=== PATIENT | male | born 1955 | race Caucasian/White ===

== ENCOUNTER 2025-07-24 01:46 | Day surgery (SDC) | payer OTHER, SELFPAY ==
[2025-07-17 15:12] VITALS: BMI 24.4
--- NOTE | 2025-07-17 15:38 | PC.NURSE ---
[facility] has started construction of its new state of the art ER which will open Spring 2026. With this, we anticipate parking may be a challenge for some our surgical patients and families. Parking spaces are limited but are available for all Surgical, obstetrics, and ER patients sharing this lot. If you arrive and find you are having a hard time finding a parking space, please note that we understand the challenges, please drive around the hospital and park near Hospital Entrance 1. When you enter this entrance, you can ask a volunteer to direct or take you back to the surgical waiting area to check in. We appreciate everyone?s understanding of these expected challenges while we build for your future. Report to the Outpatient Waiting Room, entrance under the green pavilion located off [address], at time __10:30AM___ on date __07/24/25___. Planned Procedure Time: __12:30PM____.? Time changes happen often and if your time is changed the preop area will call you the afternoon before. - You and your visitor will be asked to self-screen and do not enter if you have any COVID symptoms. Please call surgeon if you need to reschedule. - A mask is optional within the hospital at this time. Patients may have clear liquids (water, carbonated beverages, clear teas, apple juice) until 3 hours prior to surgery (9:30AM) with a maximum of 20 ounces. - No food from midnight until time of surgery and no smoking, or chewing tobacco (or any form of nicotine). No chewing gum, candy or mints. Take only the following medications with a SIP of water on the morning of surgery: LORAZEPAM NEEDED DO NOT STOP ANY OF YOUR OTHER PRESCRIPTION MEDICATIONS PRIOR TO SURGERY EXCEPT THE FOLLOWING Medications to discontinue per physician ___HOLD VITAMINS/SUPPLEMENTS 7 DAYS PRE-OP PER DR LOPEZ Date to take last dose 07/16/25 Please no make-up, nail nepali, hairspray, perfume, deodorant, or body powder the day of surgery.? No jewelry (including any body piercings) or valuables the day of surgery, leave them at home.? Please take a shower or bath the night before, or the morning of, surgery with an antibacterial soap.? Wear comfortable, loose fitting clothing.? - Jewelry must be removed prior to entering the operating room.? Rings and piercings that are not removed may be cut off. - The hospital will not accept responsibility for valuables.? - Please leave all valuables, including medications, at home the day of surgery. If you are going home after surgery, a licensed boom truck driver must drive you home.? - NO public transportation without another adult if you receive anesthesia. - We recommend that an adult stay with you for 24 hours following discharge. - We also recommend that you do not drive, make important decision, drink alcoholic beverages, or take any drugs that were not prescribed by your health care provider for at least 24 hours after your discharge time. Follow any additional instructions given to you from your surgeon. Telephone instructions given to ____PATIENT and asked if any additional questions and then verbalized understanding. Patient advised to call surgeon office or pre surgery nurse liaison [phone] if any additional questions.
--- NOTE | 2025-07-21 07:16 | PM.HPGS ---
History of Present Illness History of Present Illness Consent: Risks, benefits, and alternatives have been discussed and questions answered. Patient agrees to proceed with procedure. Chief complaint: elevated PSA Narrative: Rigoberto Charles is a 69 year old male 07/24/25: ?Care transferred to Dr. England after Dr. Baugh custodial ?a. Elevated PSA ?- PSA: 4.1 ?- 4K score: 45 ?The probability of having aggressive prostate cancer in all ? Americans and Non- Americans by 4Kscore ?4KScore Range ?% Probability ?95% CI ?<5.0 ?4.1% ?2.1%, ?7.9% ?5.0 to <10.0 ?9.6% ?5.8%, 15.5% ?10.0 to <20.0 ?19.7% ?14.8%, 25.8% ?> or = ?20.0 ?49.4% ?44.5%, 54.3% ?> or = ?20.0 ?49.4% ?44.5%, 54.3% ?- mpMRI Prostate: - volume 22gm / PSAD: 0.18 ?- PI-RADS 4 right TZ at mid-gland ?- PI-RADS 4 right PZ at apex ?b. BPH: not addressed by Dr. Baugh Review of Systems Review of Systems: All systems reviewed & are unremarkable except as noted in HPI and below PMFSH Social History Social History Smoking packs per day: 1.5 Smoking cigarettes per day: 30.0 Years smoked: 30 Smoking pack-years: 45.00 Smoking status: Former smoker Tobacco type: cigarettes Smoking end date: 04/29/90 Alcohol intake: current Drinks per week: 8 Substance use type: marijuana Other substance usage details: GUMMIE AND VAPE Living arrangements: alone Spiritual care concerns: No Meds Home Medications and Allergies Home Medications ?Medication ?Instructions ?Recorded ?Confirmed ?Type Turkish ginseng root extract 100 mg 100 mg PO DAILY 07/17/25 07/17/25 History capsule ascorbic acid (vitamin C) 1,000 mg 1 g PO DAILY 07/17/25 07/17/25 History capsule atorvastatin 40 mg tablet 40 mg PO DAILY 07/17/25 07/17/25 History cholecalciferol (vitamin D3) 50 2,000 unit PO DAILY 07/17/25 07/17/25 History mcg (2,000 unit) capsule ferrous sulfate 325 mg (65 mg 325 mg PO DAILY 07/17/25 07/17/25 History iron) tablet lorazepam 0.5 mg tablet 0.5 mg PO Q12H PRN anxiety 07/17/25 07/17/25 History multivitamin (Daily Multi-Vitamin 1 tablet PO DAILY 07/17/25 07/17/25 History tablet) omega 4-jhr-vso-fish oil 1,000 mg 1 cap PO DAILY 07/17/25 07/17/25 History (120 mg-180 mg) capsule (Fish Oil) trazodone 50 mg tablet 100 mg PO HS PRN sleep 07/17/25 07/17/25 History vitamin B complex 1 tablet PO DAILY 07/17/25 07/17/25 History Allergies Allergy/AdvReac Type Severity Reaction Status Date / Time ciprofloxacin Allergy HIVES Verified 07/17/25 15:20 Exam Const: General: no acute distress Resp: Effort & Inspection: normal respiratory effort GI: Inspection: non-distended GI Palp: No abdominal tenderness and No Guarding due to palpation present (GI) Auscultation: normal bowel sounds Assessment and Plan Assessment and plan (1) Abnormal PSA: Code(s): R97.20 - Elevated prostate specific antigen [PSA] Status: Acute Assessment and Plan: UroNav fusion biopsy prostate
--- OUTSIDE RECORDS SUMMARY | 2025-07-24 01:49 | XMS_ITS | Clinical Summary ---
Author Organization [facility] Address [address] [place] [address] Care Team Providers Care Event Crew Technician Name Role Phone Fernandez Lepe MD Primary Care Provider [phone] Allergies Active Allergy Reactions Criticality Noted Date Comments Ciprofloxacin Rash Low 01/04/2022 Medications atorvastatin 40 MG tablet Take 1 tablet (40 mg total) by mouth nightly at bedtime. Active TRAZODONE HCL OR Take 50 mg by mouth as needed. Active vitamin D3, cholecalciferol , 75 MCG (3000 UT) Tab tablet Take 3,000 Units by mouth daily. Patient takes 25mg daily Active vitamin C 1000 MG tablet Take 1 tablet (1,000 mg total) by mouth daily. Active multi vitamin/mineral s tablet Take 1 tablet by mouth daily. Active zinc gluconate 50 MG Tab Take 1 tablet (50 mg total) by mouth daily. Active calcium carb-cholecalci ferol 600-400 MG-UNIT Tab tablet 1 tablet daily. Active B Complex-C Tab tablet Take 1 tablet by mouth daily. Active Valerian Root 450 MG Cap Take by mouth as needed. Active ALPRAZolam (XANAX) 0.5 MG tablet 11/23/2023 Active IRON, FERROUS SULFATE, OR 06/23/2022 Active MALTESE PANAX GINSENG OR 11/01/2021 Active nabumetone (RELAFEN) 500 MG tablet Take 1 tablet (500 mg total) by mouth 2 (two) times daily with meals. 05/03/2024 Active fish oil (OMEGA-3 FATTY ACID) 1000 MG Cap capsule 11/23/2020 Active LORazepam (ATIVAN) 0.5 MG tablet Take 1 tablet (0.5 mg total) by mouth daily as needed for Anxiety. 11/19/2024 Active Active Problems No known active problems Social History Tobacco Use Types Packs/Day Years Used Date Smoking Tobacco: Former Smokeless Tobacco: Never Tobacco Cessation:Counseling Given: No Alcohol Use Standard Drinks/Week Comments Yes 0 (1 standard drink = 0.6 oz pur e alcohol) socially PHQ-2 Answer Date Recorded Patient Health Questionnaire-2 Score 1 02/26/2025 Sex and Gender Information Value Date Recorded Sex Assigned at Not on file Legal Sex Male 7:55 PM CDT Gender Identity Not on file Sexual Orientation Not on file Last Filed Vital Signs Vital Sign Reading Time Taken Comments Blood Pressure 158/88 02/26/2025 10:54 AM CDT Pulse 70 02/26/2025 10:54 AM CDT Temperature 36.7 C (98 F) 02/26/2025 10:16 AM CDT Respiratory Rate 17 01/05/2022 8:15 AM SENIOR TERADATA DEVELOPER Oxygen Saturation 100% 01/05/2022 8:15 AM SENIOR TERADATA DEVELOPER Inhaled Oxygen Concentration - - Weight 77.5 kg (170 lb 12.8 oz) 025 10:16 AM CDT Height 175.3 cm (5' 9) 02/26/2025 10:1 6 AM CDT Body Mass Index 25.22 02/26/2025 10:16 AM CDT Plan of Treatment Health Maintenance Due Date Last Done Comments Hepatitis C 1972 DTaP, Tdap and Td Vaccines ( 1 - Tdap) 1973 Zoster Vaccines (1 of 2) 2004 AAA SCREENING 2019 Annual Medicare Wellness Visit 2019 COVID-19 Vaccine (4 - 2024-2 6 season) 2025 09/30/2021, 03/31/2021, 03/03/2021 RSV Immunization or 60+ Years (1 - 1-dose 75+ series) 2029 Colorectal Cancer Screening Colonoscopy (10 Years) 01/06/2032 01/05/2022 Pneumococcal Vaccine: 50+ Years Completed 12/29/2020, 12/25/2019 PHQ-2 (Physician [place]) Completed 02/26/2025 Meningococcal B Vaccine Aged Out No l onger eligible based on patient's age to complete this topic Meningococcal Vaccine Aged Out No ariel eliane eligible based on patient's age to complete this topic RSV Immunizations Under 20 Months Aged Out No longer eligible b ased on patient's age to complete this topic Insurance ESSENCE Advance Directives Documents on File Type Date Recorded Patient Life Scientist Expl anation Advance Directives and Livin g Will 10/21/2013 POWER OF DECAL CUTTER Care Teams Event Crew Technician Relationship Specialty Start Date End Date Fernandez Lepe MD [address] [address] PCP - General 07/01/14
--- NOTE | 2025-07-24 06:19 | WPDHPUPDATE1 ---
History and Physical Update Update Date/Time: 07/24/25 06:19 History and Physical has been reviewed, including an updated exam of the patient. There are NO changes in the patient's condition. Risks, benefits, and alternatives have been discussed and questions answered. Patient agrees to proceed with procedure.
[2025-07-24 10:20] VITALS: BP 153/81; PULSE 61; RESP 14; TEMP 36.8; O2SAT 100; BMI 24.8
[2025-07-24] MEDS: LACTATED RINGERS 1,000 ML 30 ML IV CONT (10:45)
--- NOTE | 2025-07-24 10:51 | WPDANESEPPF ---
Anes - Initial Pre Proc Eval Procedure: Operation Date: 07/24/25 12:30 Proposed Procedures p Trans Rectal Ultrasound Fusion Guided Prostate Biopsy - Mikel England MD Date/Time: 07/24/25 10:51 Surgeon: Mikel England MD Pre Op Diagnosis: elevated PSA Patient Data Age: 69 Gender: M Height: 1.75 m Weight: 75 kg Allergies Allergy/AdvReac Type Severity Reaction Status Date / Time ciprofloxacin Allergy HIVES Verified 07/24/25 10:51 Home Medications ?Medication ?Instructions ?Recorded ?Confirmed ?Type Mongolian ginseng root extract 100 mg 100 mg PO DAILY 07/17/25 07/24/25 History capsule ascorbic acid (vitamin C) 1,000 mg 1 g PO DAILY 07/17/25 07/24/25 History capsule atorvastatin 40 mg tablet 40 mg PO DAILY 07/17/25 07/24/25 History cholecalciferol (vitamin D3) 50 2,000 unit PO DAILY 07/17/25 07/24/25 History mcg (2,000 unit) capsule ferrous sulfate 325 mg (65 mg 325 mg PO DAILY 07/17/25 07/24/25 History iron) tablet lorazepam 0.5 mg tablet 0.5 mg PO Q12H PRN anxiety 07/17/25 07/17/25 History multivitamin (Daily Multi-Vitamin 1 tablet PO DAILY 07/17/25 07/24/25 History tablet) omega 1-tlz-eqq-fish oil 1,000 mg 1 cap PO DAILY 07/17/25 07/24/25 History (120 mg-180 mg) capsule (Fish Oil) trazodone 50 mg tablet 100 mg PO HS PRN sleep 07/17/25 07/24/25 History vitamin B complex 1 tablet PO DAILY 07/17/25 07/24/25 History Patient hx anesthesia problems: none Family hx anesthesia problems: none Results Review: All pre-operative results and documents have been reviewed as part of the pre-operative evaluation. [facility] Social History Social History Smoking packs per day: 1.5 Smoking cigarettes per day: 30.0 Years smoked: 30 Smoking pack-years: 45.00 Smoking status: Former smoker Tobacco type: cigarettes Smoking end date: 04/29/90 Alcohol intake: current Drinks per week: 8 Substance use type: marijuana Other substance usage details: GUMMIE AND VAPE Living arrangements: alone Spiritual care concerns: No Anes - Eval Final PreProcedure Day of Procedure 07/24/25 10:51 Patient weight: normal Heart: regular rate and rhythm Lungs: decreased breath sounds Airway: Mallampati scale class III Neurological: alert and oriented Last oral intake: >/= 8 hours ASA classification: III Emergent: no Anesthetic plan: proceed Anesthesia type and monitoring: general LMA and standard monitoring Results Review: All pre-operative results and documents have been reviewed as part of the pre-operative evaluation. Informed Consent: The patient's anesthetic plan and its attendant risks and benefits were discussed with the patient/family/POA. Questions were solicited and answers provided to the satisfaction of the patient/family/POA.
--- NOTE | 2025-07-24 11:52 | S_PTH ---
PATIENT: Rigoberto Charles LOC: [facility] U#:[id number] AGE/SX: 69/M ROOM: RE07/24/[address]: Mikel England MD : [id number] BED: DIS: 07/24/2025 SPEC #: [id number] RECD: 07/24/25 13:36 STATUS: CHANTEL RE #: [id number] NISSA: 07/24/25 11:[address]: Mikel England DEPT: [facility] Surgical RECD BY: Thalia Whitehead ENTERED: 07/24/25 13:37 SP TYPE: Surgical OTHR DR: Fernandez LepeMD Tissues: A - Prostate Bx B - Prostate Bx C - Prostate Bx D - Prostate Bx E - Prostate Bx F - Prostate Bx G - Prostate Bx H - Prostate Bx I - Prostate Bx J - Prostate Bx K - Prostate Bx L - Prostate Bx M - Prostate Bx N - Prostate Bx Procedures: Unstained Slides Hematoxylin and Eosin Stain Prostate Biopsy PIN 4 Prostate Triple Stain
[2025-07-24 12:10] VITALS: BP 113/49; PULSE 60; RESP 18; O2SAT 100
[2025-07-24 12:40] VITALS: BP 116/67; PULSE 57
--- NOTE | 2025-07-24 13:03 | P.OP_ITS ---
Procedure Note - Detailed Date of Procedure 07/24/25 Pre-op Diagnosis elevated PSA Post-op Diagnosis Same Procedure Performed UroNav prostate biopsy Surgeon Mikel England MD Anesthesia General Description of Procedure Patient is brought to the operative suite where he is positioned in the left lateral position. Systemic sedation is administered per the anesthesia department. Surgical time-out is undertaken and it's verified the patient has received preoperative antibiotics. Transrectal ultrasonography is undertaken with a standard transrectal probe. The Neogrowth system is used to superimpose his previously obtained mpMRI prostate images on the real-time transrectal ultrasond images. Prostate volume is calculated at 20cc. On the previous mpMRI there are 2 regions of interest. Using the transrectal needle design for prostate biopsies 3 cores from each region of interest her obtain. We then proceeded with a standard 12 core prostate biopsy. Transrectal probe was removed and patient taken to recovery room having tolerated the procedure well. Blood loss was less than 10 cc.
[2025-07-24 13:08] VITALS: BP 140/67; PULSE 57; RESP 16
== END 2025-07-24 13:15 | disposition home or self-care (01) ==
PROVIDERS: PCP Family Medicine; Visit Provider Urology
PROC: (CPT 55700; principal; 2025-07-24 12:30)
DX: C61 Malignant neoplasm of prostate (principal); R97.20 Elevated prostate specific antigen [PSA]; F12.90 Cannabis use, unspecified, uncomplicated; Z87.891 Personal history of nicotine dependence
CPT/HCPCS: 76872; 55700; 88344; G0416; J2003; J2704; J3010; J7120

== ENCOUNTER 2025-09-01 11:56 | Outpatient (CLI) | payer OTHER, SELFPAY ==
--- NOTE | ~2025-09-01 | XR_ITS ---
XR chest 2V 09/01/2025 13:24 Indication: Malignant neoplasm of the prostate gland. Preop evaluation. Procedure: PA and lateral views of the chest Comparison: No prior studies for comparison. Findings: Heart size normal. Calcified granuloma in the left hilum and bilaterally in the lung parenchyma, consistent with chronic granulomatous disease. No focal air space disease, pulmonary edema, pleural effusion or suspected pneumothorax. No evidence for osseous metastases. Mild thoracic spondylosis. Impression: 1: No acute cardiopulmonary disease. Reviewed, dictated and finalized at location O. LLITE DISH REPAIRER Impression: 1: No acute cardiopulmonary disease.
--- NOTE | 2025-09-01 12:53 | ECG_ITS ---
Test Date: 2025-09-01 13:11:46 Measurements Intervals [place] Rate: 53 P: 95 RI: 241 QRS: -51 QRSD: 106 T: 47 QT: 393 QTc: 370 Interpretive Statements SINUS BRADYCARDIA WITH FIRST DEGREE AV BLOCK LEFT ANTERIOR FASCICULAR BLOCK [QRS AXIS <= -45, QR IN I, RS IN II] WARNING: DATA QUALITY MAY AFFECT INTERPRETATION No previous ECG available for comparison Electronically Signed On 09-01-2025 18:42:58 YOKE SETTER by Doron Castro M.D.
--- OUTSIDE RECORDS SUMMARY | 2025-09-01 13:25 | XMS_ITS | Clinical Summary ---
Author Organization [facility] Address [address] [place] [address] Care Team Providers Care Welt Insole Channeler Name Role Phone Fernandez Lepe MD Primary Care Provider [phone]- [phone] Allergies Active Allergy Reactions Criticality Noted Date [...] Active IRON, FERROUS SULFATE, OR 06/23/2022 Active SAMI PANAX GINSENG OR 11/01/2021 Active nabumetone (RELAFEN) [...] CDT Respiratory Rate 17 01/05/2022 8:15 AM BULB BRANDER Oxygen Saturation 100% 01/05/2022 8:15 AM BULB BRANDER Inhaled Oxygen Concentration - - Weight 77.5 [...] 2024-2 6 season) 2025 09/30/2021, 03/31/2021, 03/03/2021 Influenza Adult (#1) 2025 12/29/2020, 12/25/2019 RSV Immunization or 60+ Years (1 - 1-dose 75+ series) 2029 Colorectal Cancer Screening Colonoscopy (10 Years) 01/06/2032 01/05/2022 Pneumococcal Vaccine: 50+ Years Completed 12/29/2020, 12/25/2019 PHQ-2 (Physician [place]) Completed 02/26/2025 Hepatitis A Vaccines Aged Out No long er eligible based on patient's age to complete this topic Meningococcal B Vaccine Aged Out No l onger eligible based on patient's age to complete this topic Meningococcal Vaccine Aged Out No ariel eliane eligible based on patient's age to complete this topic RSV Immunizations Under 20 Months Aged Out No longer eligible b ased on patient's age to complete this topic Insurance ESSENCE Advance Directives Documents on File Type Date Recorded Patient Digital Program Manager Expl anation Advance Directives and Livin g Will 10/21/2013 POWER OF BEAD WIRE TAPER Care Teams Welt Insole Channeler Relationship Specialty Start Date End Date Fernandez Lepe MD [address] [facility] [address] [place] [address] PCP - General 07/01/14
[2025-09-01 13:48] LABS: Add Urine Microscopic? YES; Appearance Urine Clear (Clear); Glucose Urine UA Negative (Negative); Leukocyte Esterase Ur Trace LEU/UL (Negative); Nitrate Urine Negative (Negative); Non Pathogenic Casts 0-2; Specific Grav Ur 1.019 (1.001-1.035)
[2025-09-01 14:56] LABS: Hematocrit 43.1 % (42.0-52.0); Hemoglobin 15.0 g/dL (14.0-18.0); Mean Corpuscular HGB Conc 34.8 g/dl (32-36); Mean Corpuscular Hemoglobin 33.5 pg (26-34); Mean Corpuscular Volume 96.2 fl (80-100); Platelet Count Result 185 k/mm3 (150-375); Red Blood Count 4.48 M/mm3 (4.6-6.20); White Blood Count 12.5 K/mm3 (4.5-10.0)
[2025-09-01 15:07] LABS: Alanine Aminotransferase 35 U/L (6-50); Albumin Level 4.4 g/dL (3.5-5.1); Alkaline Phosphatase 74 U/L (38-126); Anion Gap 7 mmol/L (4-12); Aspartate Amino Transferase 43 U/L (17-59); Bilirubin,Total 0.7 mg/dL (0.2-1.3); Blood Urea Nitrogen 16 mg/dL (9-20); Calcium 9.0 mg/dL (8.4-10.2); Carbon Dioxide 28 mmol/L (22-30); Chloride 102 mmol/L (98-107); Estimated Glomerular Filt Rate > 60; Glucose 103 mg/dL (65-110); Potassium 3.6 mmol/L (3.4-5.0); Sodium 137 mmol/L (137-145); Total Protein 7.2 g/dL (6.3-8.2)
[2025-09-01 15:14] LABS: INR 1.0; Partial Thromboplastin Time 26.3 Seconds (22.3-36.8); Prothrombin Time 13.0 Seconds (11.1-14.7)
[2025-09-01 15:26] LABS: Lymphocytes Absolute Manual 9.50 K/mm3 (1.1-4.5); Lymphocytes Percent Manual 76.0 % (18-44); Monocytes Absolute Manual 0.62 K/mm3 (0.1-0.90); Monocytes Percent Manual 5 % (3-9); Neutrophils Percent Manual 19 % (46-73); Total Cells Counted 100
[2025-09-01 15:28] LABS: Schistocytes None Seen
[2025-09-01 15:30] LABS: Band Neutrophils Percent 0 % (0-6); Neutrophils Absolute Manual 2.37 K/mm3 (1.3-6.7)
== END 2025-09-01 11:57 | disposition home or self-care (01) ==
LOC: ANHSURGERY 11:59
PROVIDERS: PCP Family Medicine; Visit Provider Urology
DX: C61 Malignant neoplasm of prostate (principal); Z01.818 Encounter for other preprocedural examination
CPT/HCPCS: 36415; 71046; 80053; 81001; 85025; 85610; 85730; 86850; 86900; 86901; 93005

== ENCOUNTER 2025-09-11 02:01 | Day surgery (SDC) | payer OTHER, SELFPAY ==
--- NOTE | 2025-09-01 11:59 | PC.NURSE ---
[facility] has started construction of its new state of the art ER which will open Spring 2026. With this, we anticipate parking may be a challenge for some our surgical patients and families. Parking spaces are limited but are available for all Surgical, obstetrics, and ER patients sharing this lot. If you arrive and find you are having a hard time finding a parking space, please note that we understand the challenges, please drive around the hospital and park near Hospital Entrance 1. When you enter this entrance, you can ask a volunteer to direct or take you back to the surgical waiting area to check in. We appreciate everyone?s understanding of these expected challenges while we build for your future. Report to the Outpatient Waiting Room, entrance under the green pavilion located off [address], at time 6 AM on date _09/11/25 . Planned Procedure Time: __7:30 AM .? Time changes happen often and if your time is changed the preop area will call you the afternoon before. - You and your visitor will be asked to self-screen and do not enter if you have any COVID symptoms. Please call surgeon if you need to reschedule. - A mask is optional within the hospital at this time. Patients may have clear liquids (water, carbonated beverages, clear teas, apple juice) until 3 hours prior to surgery ( 4:30 AM) with a maximum of 20 ounces. - No food from midnight until time of surgery and no smoking, or chewing tobacco (or any form of nicotine). No chewing gum, candy or mints. - Take only the following medications with a SIP of water on the morning of surgery: ____LORAZEPAM IF NEEDED DO NOT STOP ANY OF YOUR OTHER PRESCRIPTION MEDICATIONS PRIOR TO SURGERY EXCEPT THE FOLLOWING Hold all vitamins and supplements for 3 days per anesthesiologist.LAST DOSE 09/07/25 Medications to discontinue per physician ____NONE BOWEL PREP PER DR LOPEZ Please no make-up, nail honduran, hairspray, perfume, deodorant, or body powder the day of surgery.? No jewelry (including any body piercings) or valuables the day of surgery, leave them at home.? Please take a shower or bath the night before, or the morning of, surgery with an antibacterial soap.? Wear comfortable, loose fitting clothing.? Children are encouraged to wear pajamas. - Jewelry must be removed prior to entering the operating room.? Rings and piercings that are not removed may be cut off. - The hospital will not accept responsibility for valuables.? - Please leave all valuables, including medications, at home the day of surgery. If you are going home after surgery, a licensed tractor driver teamster must drive you home.? - NO public transportation without another adult if you receive anesthesia. - We recommend that an adult stay with you for 24 hours following discharge. - We also recommend that you do not drive, make important decision, drink alcoholic beverages, or take any drugs that were not prescribed by your health care provider for at least 24 hours after your discharge time. For Pediatric surgeries, we recommend two adults accompany the child home. Follow any additional instructions given to you from your surgeon. VERBAL AND WRITTEN instructions given to __PATIENT_AND BROTHER and asked if any additional questions and then verbalized understanding. Patient advised to call surgeon office or pre surgery nurse liaison [phone] if any additional questions.
[2025-09-01 12:03] VITALS: BMI 25.1
[2025-09-01 12:54] VITALS: BP 153/73; PULSE 65; RESP 18; TEMP 36.6; O2SAT 99
--- NOTE | 2025-09-03 06:30 | PM.HPGS ---
History of Present Illness History of Present Illness Consent: Risks, benefits, and alternatives have been discussed and questions answered. Patient agrees to proceed with procedure. Chief complaint: Prostate Ca Narrative: Rigoberto Charles is a 69 year old male with prostate cancer: 07/28/25: ?TRUS/NBxP at [facility] ?PSA: 5.1 ?- ?07/12 cores (all right + LLM, LA + ROSELYN on right), GGG-1 (6) and GGG2 (3) ?- ?NCCN Unfavorable IR ?- ?Volume: 22gm ?Howard (prediction of pathology): ?a. ?Lymph node: 3% ?b. ?S.V.: 3% ?c. ?EPE: 42% ?d. ?Organ confined: 57% 08/06/25: ?Decipher Prostate ?Decipher Score: 0.71 (0-.45 Low Risk / .45-.60 Int. Risk / >.60 High Risk) in comparison to similar NCCN risk ?- 5-year Risk of Metastasis (with standard therapy): 3.6% ?- 10-year Risk of Metastasis (with standard therapy): 9.0% ?- 15-year Risk of Mortality (with standard therapy): 11.7% ?- Risk of Adverse Pathology at RP: 29% ?73rd percentile / 27% of patients with similar clinical and pathological features typically have higher Genomic Scores 08/06/2025: ?Pt. opts for RALP Long discussion with patient and his brother regarding therapeutic options including active surveillance radiation therapy in its various forms and radical prostatectomy. He has elected for the latter. Review of Systems Review of Systems: All systems reviewed & are unremarkable except as noted in HPI and below PMFSH Social History Social History Smoking packs per day: 1.5 Smoking cigarettes per day: 30.0 Years smoked: 30 Smoking pack-years: 45.00 Smoking status: Former smoker Tobacco type: cigarettes Smoking end date: 10/30/89 Alcohol intake: current Drinks per week: 10 Alcohol use details: WHITE CLAW Substance use: current Substance use type: marijuana Other substance usage details: GUMMIE AND VAPE Last use: 08/31/25 Living arrangements: alone Spiritual care concerns: No Meds Home Medications and Allergies Home Medications ?Medication ?Instructions ?Recorded ?Confirmed ?Type Maltese ginseng root extract 100 mg 100 mg PO DAILY 07/17/25 09/01/25 History capsule ascorbic acid (vitamin C) 1,000 mg 1 g PO DAILY 07/17/25 09/01/25 History capsule atorvastatin 40 mg tablet 40 mg PO DAILY 07/17/25 09/01/25 History cholecalciferol (vitamin D3) 50 2,000 unit PO DAILY 07/17/25 09/01/25 History mcg (2,000 unit) capsule ferrous sulfate 325 mg (65 mg 325 mg PO DAILY 07/17/25 09/01/25 History iron) tablet lorazepam 0.5 mg tablet 0.5 mg PO Q12H PRN anxiety 07/17/25 09/01/25 History multivitamin (Daily Multi-Vitamin 1 tablet PO DAILY 07/17/25 09/01/25 History tablet) omega 2-wit-uvq-fish oil 1,000 mg 1 cap PO DAILY 07/17/25 09/01/25 History (120 mg-180 mg) capsule (Fish Oil) trazodone 50 mg tablet 100 mg PO HS PRN sleep 07/17/25 09/01/25 History vitamin B complex 1 tablet PO DAILY 07/17/25 09/01/25 History valerian root 500 mg capsule 500 mg PO DAILY 09/01/25 09/01/25 History Allergies Allergy/AdvReac Type Severity Reaction Status Date / Time ciprofloxacin Allergy HIVES Verified 09/01/25 12:04 Exam Const: General: no acute distress Resp: Effort & Inspection: normal respiratory effort GI: Inspection: non-distended GI Palp: No abdominal tenderness and No Guarding due to palpation present (GI) Auscultation: normal bowel sounds Assessment and Plan Assessment and plan (1) Prostate cancer: Code(s): C61 - Malignant neoplasm of prostate Status: Acute Assessment and Plan: Robotic prostatectomy with bilateral pelvic lymphadenectomy
[2025-09-11] VITALS (17 sets, daily range): BP systolic 96–165; BP diastolic 52–77; PULSE 58–78; RESP 12–18; TEMP 36.4–36.9; O2SAT 90–100; BMI 25.0
--- OUTSIDE RECORDS SUMMARY | 2025-09-11 02:03 | XMS_ITS | Clinical Summary ---
Author Organization [facility] Address [address] [place] [address] Care Team Providers Care Civil Rights Attorney Name Role Phone Fernandez Lepe MD Primary Care Provider [phone] Allergies Active Allergy Reactions Criticality Noted Date [...] Active IRON, FERROUS SULFATE, OR 06/23/2022 Active PASHTO PANAX GINSENG OR 11/01/2021 Active nabumetone (RELAFEN) [...] CDT Respiratory Rate 17 01/05/2022 8:15 AM LINER REROLL TENDER Oxygen Saturation 100% 01/05/2022 8:15 AM LINER REROLL TENDER Inhaled Oxygen Concentration - - Weight 77.5 [...] 50+ Years Completed 12/29/2020, 12/25/2019 PHQ-2 (Physician Kashia) Completed 02/26/2025 Hepatitis A Vaccines Aged Out [...] Documents on File Type Date Recorded Patient Behavioral Modification Assistant Expl anation Advance Directives and Livin g Will 10/21/2013 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
--- NOTE | 2025-09-11 06:02 | WPDHPUPDATE1 ---
History and Physical Update Update Date/Time: 09/11/25 06:02 History and Physical has been reviewed, including an updated exam of the patient. There are NO changes in the patient's condition. Risks, benefits, and alternatives have been discussed and questions answered. Patient agrees to proceed with procedure.
--- NOTE | 2025-09-11 06:27 | WPDANESEPPF ---
Anes - Initial Pre Proc Eval Procedure: Operation Date: 09/11/25 07:30 Proposed Procedures p Robotic Assisted Laparoscopic Prostatectomy with Bilateral Lymph Node Dissection - Mikel England MD Date/Time: 09/11/25 06:27 Surgeon: Mikel England MD Pre Op Diagnosis: Prostate Ca Patient Data Age: 69 Gender: M Height: 1.75 m Weight: 77.3 kg Last Vital Signs Temp 36.6 C 09/01/25 12:54 Pulse 65 09/01/25 12:54 Resp 18 09/01/25 12:54 BP 153/73 H 09/01/25 12:54 Pulse Ox 99 09/01/25 12:54 O2 Del Method Room Air 09/01/25 12:54 Allergies Allergy/AdvReac Type Severity Reaction Status Date / Time ciprofloxacin Allergy HIVES Verified 09/01/25 12:04 Home Medications ?Medication ?Instructions ?Recorded ?Confirmed ?Type Lao ginseng root extract 100 mg 100 mg PO DAILY 07/17/25 09/01/25 History capsule ascorbic acid (vitamin C) 1,000 mg 1 g PO DAILY 07/17/25 09/01/25 History capsule atorvastatin 40 mg tablet 40 mg PO DAILY 07/17/25 09/01/25 History cholecalciferol (vitamin D3) 50 2,000 unit PO DAILY 07/17/25 09/01/25 History mcg (2,000 unit) capsule ferrous sulfate 325 mg (65 mg 325 mg PO DAILY 07/17/25 09/01/25 History iron) tablet lorazepam 0.5 mg tablet 0.5 mg PO Q12H PRN anxiety 07/17/25 09/01/25 History multivitamin (Daily Multi-Vitamin 1 tablet PO DAILY 07/17/25 09/01/25 History tablet) omega 6-izz-bbz-fish oil 1,000 mg 1 cap PO DAILY 07/17/25 09/01/25 History (120 mg-180 mg) capsule (Fish Oil) trazodone 50 mg tablet 100 mg PO HS PRN sleep 07/17/25 09/01/25 History vitamin B complex 1 tablet PO DAILY 07/17/25 09/01/25 History valerian root 500 mg capsule 500 mg PO DAILY 09/01/25 09/01/25 History Patient hx anesthesia problems: none Family hx anesthesia problems: none Results Review: All pre-operative results and documents have been reviewed as part of the pre-operative evaluation. [facility] Social History Social History Smoking packs per day: 1.5 Smoking cigarettes per day: 30.0 Years smoked: 30 Smoking pack-years: 45.00 Smoking status: Former smoker Tobacco type: cigarettes Smoking end date: 04/29/90 Alcohol intake: current Drinks per week: 8 Alcohol use details: WHITE CLAW Substance use: current Substance use type: marijuana Other substance usage details: GUMMIE AND VAPE Last use: 08/31/25 Living arrangements: alone Spiritual care concerns: No Anes - Eval Final PreProcedure Day of Procedure 09/11/25 06:27 Patient weight: overweight Heart: regular rate and rhythm Lungs: clear to auscultation Airway: Mallampati scale class III Neurological: alert and oriented Last oral intake: >/= 8 hours ASA classification: III Emergent: no Anesthetic plan: proceed Anesthesia type and monitoring: general ETT and standard monitoring Results Review: All pre-operative results and documents have been reviewed as part of the pre-operative evaluation. Informed Consent: The patient's anesthetic plan and its attendant risks and benefits were discussed with the patient/family/POA. Questions were solicited and answers provided to the satisfaction of the patient/family/POA.
[2025-09-11] MEDS: LACTATED RINGERS 1,000 ML 30 ML IV CONT ×3 (07:00→11:21)
[2025-09-11] MEDS: ceFAZolin 2 GM in SODIUM CHLORIDE 0.9% IV 50 ML 100 ML IVPB (07:30)
--- NOTE | 2025-09-11 09:08 | S_PTH ---
PATIENT: Rigoberto Charles LOC: [facility] U#:[id number] AGE/SX: 69/M ROOM: RE09/11/[address]: Mikel England MD : [id number] BED: DIS: 09/12/2025 SPEC #: [id number] RECD: 09/11/25 11:40 STATUS: CHANTEL REQ #: [id number] NISSA: 09/11/25 09:[address]: Mikel England DEPT: [facility] Surgical RECD BY: Thalia Whitehead ENTERED: 09/11/25 11:40 SP TYPE: Surgical OTHR DR: Fernandez Lepe, Tissues: A - Lymph Node B - Lymph Node C - Prostate Procedures: Hematoxylin and Eosin Stain Gross and Microscopic Level 4 Gross and Microscopic Level 6
--- NOTE | 2025-09-11 10:52 | W.PM.PROC2 ---
Procedure Note - Detailed Date of Procedure 09/11/25 Pre-op Diagnosis Prostate Ca, extensive abdominal and pelvic adhesions Post-op Diagnosis Same Procedure Performed 1. Extensive lysis of adhesions 2. Robotic assisted radical prostatectomy with bilateral pelvic lymphadenectomy Surgeon Mikel England MD Anesthesia General Description of Procedure The patient was brought to the operative suite, where he was prepped and draped in routine sterile fashion while in a dorsal lithotomy, deep Trendelenburg position. A supraumbilical 10 mm trocar was placed after insufflation of the abdomen with a Veress needle. Three robotic ports were then placed under direct vision. Two of these were placed in the right lower quadrant - 10 cm and 20 cm lateral to, and in line with, the umbilicus. A third robotic trocar was placed 10 cm to the left of the umbilicus, and 20 cm to the left of the umbilicus, a 12 mm standard laparoscopic trocar was placed to be used as an respiratory therapy assistant port. Lastly, a 5 mm trocar was placed in the left upper quadrant midway between the umbilicus and the left robotic trocar. With placement of the camera trocar I could see he had extensive adhesions in his lower abdomen and pelvis. Placed the 2 trocars in the left lower quadrant 1st in order to be able to visualize and lyse the extensive adhesions which were greater in the right lower quadrant in the quadrant. Obviously this was done with care to avoid any injury to the bowel. Attention to and lysis of adhesions required approximately 40 minutes. Attention was then turned to the prostatectomy. I opted for a posterior approach in this patient. An incision was made in the parietal peritoneum along the posterior bladder/posterior prostate about 2 cm above the reflection of the peritoneum over the anterior rectum. The seminal vesicles and vas deferens were immediately identified. Dissection is undertaken in a fashion so as to avoid electrocautery as much as possible, particularly near the tips of the seminal vesicles. Dissection was also carried out in the midline so as to avoid any encounters with the ureters. The vas deferens and the seminal vesicles were dissected in their entirety to the base of the prostate. The plane anterior to Denoviller's fascia, anterior to the rectum and posterior to the prostate was then developed. I then dropped the bladder by incising the anterior parietal peritoneum just lateral to the median umbilical ligaments bilaterally. The bladder was dropped from the anterior abdominal and pelvic wall. The endopelvic fascia was identified and incised bilaterally, allowing for dissection of the posterior-lateral aspect of the prostate. The puboprostatic ligaments were transected near their origin from the posterior pubic ramus. This posterior lateral dissection of the prostate is also undertaken in a fashion so as to avoid electrocautery as much as possible. The dorsal vein of the penis is then secured with an 0 -Vicryl ligature. Attention is then turned to the bladder neck. The anterior bladder neck is incised at the vesico-prostatic junction. The previously placed urethral catheter was drawn through the urethrotomy. A very small bladder neck was maintained throughout the remainder of this dissection. The posterior bladder neck was incised in a fashion so as to avoid any injury to the ureteral orifices. Again, the small aperture of the bladder neck was maintained. The previously dissected vas deferens and the seminal vesicles were brought through the posterior bladder neck incision. The lateral prostatic pedicles were then carefully dissected from the lateral aspect of the prostate bilaterally. The prostatic pedicles were secured with Weck clips and transected. The neurovascular bundles were carefully dissected from the posterior-lateral aspect of the prostate. The dorsal vein of the penis was incised with electrocautery. Using cold scissors, the urethra was incised. After withdrawing the previously placed urethral catheter, the posterior urethra was sharply incised, as was the rectalurethralis muscle. Attention was then turned to an extended bilateral pelvic lymphadenectomy. The limits of this dissection were similar bilaterally. Specifically, the limits were the bifurcation of the common iliac vein proximally, the José Antonio's ligament distally, the pevic floor posteriorly. the pelvic sidewall laterally and the anterior aspect to the external iliac artery laterally. This dissection was undertaken with care to avoid any injury to the obturator nerve. The prostate, seminal vesicles and pelvic nodes were then placed in a specimen bag. The pelvis was copiously irrigated with saline. Urethrovesical anastomosis was then undertaken using similar two 3-0 V-lock sutures across a 20-Persian urethral catheter. The catheter was irrigated, and there was found to be no evidence of an irrigant extravasation. I opted not to place a pelvic drain. The robot is undocked, and the trocars were removed. The specimen was removed through the supraumbilical incision. The anterior rectus fascia at that suprapubic site was closed with a looped 0-PDS. Subcutaneous tissue was irrigated. Skin incisions were closed with 4-0 Vicryl subcuticular. Blood loss throughout this was 150cc. The patient tolerated the procedure well, was taken to recovery room in good condition. Drains No Pathology Yes Complications No immediate complications Condition Stable
[2025-09-11] MEDS: fentaNYL CITRATE INJ (*CRX) 100 MCG/2 ML VIAL 25 MCG IV PUSH ×8 (10:55→11:35)
[2025-09-11] MEDS: diazePAM INJ (*CRX) 10 MG/2 ML SYRINGE 2.5 MG IV PUSH ×2 (11:12→11:19)
[2025-09-11] MEDS: ONDANSETRON INJ 4 MG/2 ML VIAL IV PUSH ×2 (11:19→16:40)
[2025-09-11] MEDS: HYDROmorphone HCL INJ (*CRX) 1 MG/ML SYR 0.5 MG IV PUSH ×4 (11:39→12:43)
--- NOTE | 2025-09-11 13:16 | ADMGEN ---
This patient, Rigoberto Charles, was admitted to -. Patient/family oriented to hospital policies and general routines including ID bracelet, bed and alarms, visiting hours, pain management, procedures, bathroom and other care routines, personal items, smoking policy, room service/diet, and visiting hours. Information on how to activate the Rapid Response Team has been discussed. Patient/Family are encouraged to report perceived risks to care and to ask questions if they do not understand what they are told or what they should do.
[2025-09-11] MEDS: HYOSCYAMINE SULFATE 0.125 MG TABLET SUBLINGUAL (16:32)
[2025-09-11] MEDS: LACTATED RINGERS 1,000 ML 125 ML IV CONT (16:34)
[2025-09-11] MEDS: MORPHINE SULFATE (*CRX) 4 MG/ML INJ 1 MG IV PUSH ×2 (16:34→21:46)
[2025-09-12 02:38] VITALS: BP 119/58; PULSE 86; RESP 20; TEMP 36.4; O2SAT 100
[2025-09-12] MEDS: LORazepam (*CRX) 0.5 MG TABLET PO (03:03)
[2025-09-12] MEDS: MORPHINE SULFATE (*CRX) 4 MG/ML INJ 1 MG IV PUSH (03:03)
[2025-09-12 03:16] VITALS: BP 119/58; PULSE 86; RESP 20; TEMP 36.4; O2SAT 100
[2025-09-12 05:43] LABS: Hematocrit 29.5 % (42.0-52.0); Hemoglobin 10.0 g/dL (14.0-18.0)
[2025-09-12 05:55] LABS: Anion Gap 4 mmol/L (4-12); Blood Urea Nitrogen 14 mg/dL (9-20); Calcium 8.3 mg/dL (8.4-10.2); Carbon Dioxide 27 mmol/L (22-30); Chloride 102 mmol/L (98-107); Estimated CRCL calculation 58 ml/min; Estimated Glomerular Filt Rate > 60; Glucose 123 mg/dL (65-110); Potassium 4.5 mmol/L (3.4-5.0); Sodium 133 mmol/L (137-145)
--- NOTE | 2025-09-12 06:08 | P.PNUR_ITS ---
Progress Note: A&P Assessment and Plan (1) Prostate cancer: Code(s): C61 - Malignant neoplasm of prostate Status: Acute Assessment and Plan: * Doing well POD #1 * Increase diet and activity today * Anticipate discharge this afternoon Subjective Subjective Date/Time Seen: 09/12/25 06:08 Interval history: Mild abd. discomfort, tolerating diet Review of Systems Cardiovascular: Cardiovascular: Denies chest pain, Denies lightheadedness, Denies palpitations and Denies dyspnea Respiratory: Respiratory: Denies dyspnea Gastrointestinal: Gastrointestinal: Denies diarrhea, Denies nausea and Denies vomiting Genitourinary: Genitourinary: Denies hematuria and Denies dysuria Endocrine: Endocrine: Denies palpitations Exam Const: General: no acute distress Resp: Effort & Inspection: normal respiratory effort GI: Inspection: non-distended and other (ecchymosis right lateral incision) GI Palp: No abdominal tenderness and No Guarding due to palpation present (GI) Auscultation: normal bowel sounds Urinary Catheter: Urinary Catheter: patent and draining and urine clear Objective Data Vital Signs Vital Signs: Vital Signs - 24 hr 09/11/25 07:00 09/11/25 10:47 09/11/25 11:02 Temperature 98.5 F 97.5 F L Pulse Rate 58 L 76 78 Respiratory Rate 16 12 14 Blood Pressure 165/72 H 110/53 L 101/52 L Pulse Oximetry 100 100 100 Oxygen Delivery Room Air Simple Face Mask Room Air Oxygen Flow Rate 8 09/11/25 11:15 09/11/25 11:30 09/11/25 11:45 Temperature Pulse Rate 76 77 74 Respiratory Rate 16 17 18 Blood Pressure 110/64 103/63 121/60 Pulse Oximetry 98 98 93 Oxygen Delivery Room Air Room Air Room Air Oxygen Flow Rate 09/11/25 12:00 09/11/25 12:15 09/11/25 12:30 Temperature Pulse Rate 72 67 67 Respiratory Rate 18 18 18 Blood Pressure 106/55 L 96/55 L 107/62 Pulse Oximetry 93 97 90 Oxygen Delivery Room Air Room Air Nasal Cannula Oxygen Flow Rate 2 09/11/25 12:45 09/11/25 13:10 09/11/25 13:24 Temperature 97.9 F 97.5 F L Pulse Rate 67 59 L 67 Respiratory Rate 16 18 16 Blood Pressure 108/53 L 119/77 Pulse Oximetry 98 97 98 Oxygen Delivery Nasal Cannula Nasal Cannula Oxygen Flow Rate 2 2 09/11/25 13:25 09/11/25 13:55 09/11/25 14:55 Temperature 97.5 F L 97.5 F L 97.5 F L Pulse Rate 60 58 L 61 Respiratory Rate 18 18 18 Blood Pressure 104/64 103/60 112/61 Pulse Oximetry 91 97 99 Oxygen Delivery Oxygen Flow Rate 09/11/25 20:00 09/11/25 20:50 09/11/25 20:52 Temperature 97.6 F 97.6 F Pulse Rate 77 77 Respiratory Rate 18 18 Blood Pressure 112/74 112/74 Pulse Oximetry 100 100 Oxygen Delivery Room Air Oxygen Flow Rate 09/12/25 02:38 09/12/25 03:16 Temperature 97.6 F 97.6 F Pulse Rate 86 86 Respiratory Rate 20 20 Blood Pressure 119/58 L 119/58 L Pulse Oximetry 100 100 Oxygen Delivery Oxygen Flow Rate Intake/Output Intake/Output: Intake & Output 09/09/25 09/10/25 09/11/25 09/12/25 23:59 23:59 23:59 23:59 Intake Total 1510 290 Output Total 85 300 Balance 1425 -10 Meds/Results Medications: Active Medications Generic Name Dose Route Start Last Admin Trade Name Freq PRN Reason Stop Dose Admin Atorvastatin Calcium 40 mg 09/12/25 09:00 Atorvastatin 40 Mg Tablet PO DAILY [facility] Ferrous Sulfate 325 mg 09/12/25 09:00 Ferrous Sulfate 325 Mg Tablet BY MOUTH DAILY [facility] Hyoscyamine 0.125 mg 09/11/25 12:53 09/11/25 16:32 Hyoscyamine Sulfate 0.125 Mg Tablet SUBLINGUAL 0.125 mg Q4H PRN Administration Bladder Spasm Lactated Ringer's 1,000 mls @ 125 mls/hr 09/11/25 12:53 09/11/25 16:34 Lr - Lactated Ringers Iv IV CONT 125 mls/hr .Q8H JAMA Administration Ketorolac Tromethamine 15 mg 09/11/25 12:53 Ketorolac 15 Mg/Ml Vial (*Bkc) IV PUSH 09/12/25 12:52 Q6H PRN Pain Rated 4-6 Levofloxacin 500 mg 09/12/25 09:00 Levofloxacin 500 Mg Tablet PO DAILY [facility] Lorazepam 0.5 mg 09/11/25 12:53 09/12/25 03:03 Lorazepam (*Crx) 0.5 Mg Tablet PO 0.5 mg Q12H PRN Administration Anxiety Morphine Sulfate 1 mg 09/11/25 12:53 09/12/25 03:03 Morphine Sulfate (*Crx) 4 Mg/Ml Inj IV PUSH 1 mg Q2H PRN Administration Pain Rated 7-10 Naloxone HCl 0.1 mg 09/11/25 12:53 Naloxone Hcl 0.4 Mg/Ml Vial IV PUSH Q2M PRN Opiate Reversal Ondansetron HCl 4 mg 09/11/25 12:53 09/11/25 16:40 Ondansetron Inj 4 Mg/2 Ml Vial IV PUSH 4 mg Q6H PRN Administration Nausea And Vomiting Oxycodone HCl 5 mg 09/11/25 06:42 Oxycodone Hcl (*Crx) 5 Mg Tab Ir PO ONCE PRN Pain Trazodone HCl 100 mg 09/11/25 12:53 Trazodone Hcl 50 Mg Tablet PO HS PRN Sleep Labs Labs: Laboratory Results - last 24 hr 09/12/25 05:37 Hgb 10.0 L D Hct 29.5 L Sodium 133 L Potassium 4.5 Chloride 102 Carbon Dioxide 27 Anion Gap 4 BUN 14 Creatinine 1.05 Estim Creat Clear Calc 58 Estimated GFR > 60 Glucose 123 H Calcium 8.3 L
[2025-09-12] MEDS: FERROUS SULFATE 325 MG TABLET BY MOUTH (08:34)
[2025-09-12] MEDS: ATORVASTATIN 40 MG TABLET PO (08:34)
[2025-09-12] MEDS: KETOROLAC 15 MG/ML VIAL (*BKC) IV PUSH (08:39)
[2025-09-12 10:14] VITALS: BP 111/60; PULSE 90; RESP 16; TEMP 37; O2SAT 100
[2025-09-12 14:38] VITALS: BP 115/62; PULSE 85; RESP 20; TEMP 36.8; O2SAT 100
[2025-09-12] MEDS: HYDROcodone/acetaminophen (*CRX) 5-325 MG TABLET 1 TAB PO (16:15)
== END 2025-09-12 18:25 | disposition home or self-care (01) ==
LOC: ANHSURGERY 06:03 → ANH3MED 13:33
PROVIDERS: PCP Family Medicine; Visit Provider Urology
PROC: 0VT04ZZ Resection of Prostate, Percutaneous Endoscopic Approach (ICD-10-PCS; CPT 55867; principal; 2025-09-11 07:30)
DX: C61 Malignant neoplasm of prostate (principal); K66.0 Peritoneal adhesions (postprocedural) (postinfection)
CPT/HCPCS: 55866; 38571; S2900; 36415; 80048; 85014; 85018; 88305; 88309; J0690; A9270; J0360; J1100; J1171; J1885; J2250; J2270; J2405; J2704; J3010; J3360; J7030; J7120; Q9968

== ENCOUNTER 2025-09-15 07:55 | Inpatient (IN) | payer OTHER, SELFPAY ==
[2025-09-15] VITALS (12 sets, daily range): BP systolic 111–145; BP diastolic 54–71; PULSE 63–86; RESP 16–23; TEMP 36.5–36.9; O2SAT 94–100; BMI 25.5
--- NOTE | ~2025-09-15 | XR_ITS ---
EXAM/PROCEDURE: XR sm bowel follow through WS HISTORY: SBO COMPARISON: CT exam from September 15. TECHNIQUE: Standard technique for small bowel follow-through series attempted with gastric catheter in place. Patient was only able to tolerate 150 cc limited exam somewhat. FINDINGS: On the landscape account manager image, multiple loops of gas distended small bowel, as well as emphysematous changes in the right subcutaneous soft tissues. Following administration of enteric contrast through gastric catheter, patient began to complain of nausea/discomfort at 150 mL and administration was not. Several follow-up overhead images demonstrate passage of contrast into the mid to distal small bowel with no progression at the 4 hour michelle. No extravasation of contrast seen. IMPRESSION: Findings are concerning for mechanical small bowel obstruction. Correlation with follow-up KUB later this evening or tomorrow morning recommended if patient managed nonoperatively. Reviewed, dictated and finalized at location A. NG INSPECTOR IMPRESSION: Findings are concerning for mechanical small bowel obstruction. Cor relation with follow-up KUB later this evening or tomorrow morning recommended if patient managed nonoperatively.
--- NOTE | ~2025-09-15 | XR_ITS ---
EXAM/PROCEDURE: XR abdomen/kub 1V HISTORY: SBO; FOLLOW UP ON WATER SOLUBLE SBS FROM YESTERDAY COMPARISON: Small bowel follow-through series yesterday TECHNIQUE: KUB FINDINGS: Contrast is present extending throughout the large bowel into the rectosigmoid region. Several loops of distended small bowel remain. IMPRESSION: Findings are consistent with either partial small bowel obstruction or ileus. Reviewed, dictated and finalized at location A. ARCH MECHANIC
--- NOTE | ~2025-09-15 | XR_ITS ---
EXAM/PROCEDURE: XR abdomen gastric tube insert HISTORY: NG tube COMPARISON: None available. TECHNIQUE: KUB FINDINGS: Gastric catheter present with the tip in the upper body portion of the stomach. Multiple loops of gas dilated small bowel present throughout. Extensive subcutaneous emphysema noted in the right abdominal and right chest wall region. Free air seen on CT examination not clearly seen on this plain film. Heart size normal. IMPRESSION: Gastric catheter appears in good position. Extensive subcutaneous emphysema on the right side again noted. Reviewed, dictated and finalized at location A. HYSICAL LABORATORY SUPERVISOR
--- NOTE | ~2025-09-15 | XR_ITS ---
EXAM/PROCEDURE: XR cystogram HISTORY: PROSTATE CANCER, FOLLOW-UP POST SURGERY COMPARISON: None available. TECHNIQUE: Standard technique for fluoroscopic cystography performed. A total of approximately 200 mL 50% strength water soluble contrast infused retrogradely by gravity. Exam was terminated somewhat early due to patient's complaint of severe pain. Fluoroscopy time: 0.4 minutes DAP: 13 Cardenas per square centimeter Number of images: 14 FINDINGS: No acute abnormality seen on the tank truck engine mechanic image. Right total hip arthroplasty hardware noted. On contrast filling of the urinary bladder, moderately extensive trabeculation noted. No extravasation of contrast seen. Patient was in significant discomfort at approximately 200 mL and the exam was then stopped. Obliquing the patient was limited. IMPRESSION: Somewhat limited exam due to patient discomfort but no evidence of extravasation of contrast or leakage. Moderate amount of bladder wall trabeculation noted. Reviewed, dictated and finalized at location A. L CITY DRIVER IMPRESSION: Somewhat limited exam due to patient discomfort but no evidence of extravasatio n of contrast or leakage. Moderate amount of bladder wall trabeculation noted.
--- NOTE | ~2025-09-15 | CT_ITS ---
EXAMINATION: CTA chest PE abdomen pel DATE: 09/15/2025 10:25 INDICATION: Rule out PE TECHNIQUE: Computed tomography angiography (CTA) of the chest was performed with 100 mL Omnipaque-350 intravenous contrast timed to evaluate the pulmonary arteries. Coronal maximum intensity projection 3D-reconstructions were created by the technologist. Computed tomography (CT) of the abdomen and pelvis was performed with intravenous contrast. The dose-length product was 729.57 mGy-cm. COMPARISON: None. FINDINGS: CTA chest: No pulmonary emboli or thoracic aortic aneurysm/dissection. Borderline cardiomegaly. No significant pericardial effusion or bulky lymphadenopathy. Mild bibasilar atelectatic appearing changes right greater than left. Trace right-sided effusion may be developing. No pneumothorax or focal consolidation. Central and large airways are patent. CT ABDOMEN AND PELVIS: Multiple loops of fluid-filled distended small bowel are present with possible transition in the right hemiabdomen image 80 series 5, and what appears to be the mid to distal ileum. Pneumoperitoneum noted. Small amounts of air extending along the pelvic sidewalls. Moderate amount of emphysematous changes in the right hemipelvic, abdominal and right thoracic subcutaneous soft tissues. Discrete point of perforation is not clearly seen. No AAA or grossly inflamed appendix. No hydroureteronephrosis. Small amount of free fluid. No pneumatosis seen. Urinary bladder is nondistended with indwelling catheter. Extensive granular moderate in the spleen. Liver stomach and adrenal glands appear normal. Bones intact. IMPRESSION: 1. Findings consistent with mechanical small bowel obstruction and perforation with pneumoperitoneum noted. There is also moderately extensive emphysematous infiltrative/edematous changes in the extra peritoneal soft tissues. Correlate clinically to exclude gas forming infection and necrotizing fasciitis in the soft tissues. 2. No pulmonary emboli or thoracic aortic aneurysm/dissection. Reviewed, dictated and finalized at location A. Y II PAINTER IMPRESSION: 1. Findings consistent with mechanical small bowel obstruction and perforation with pneumoperitoneum noted. There is also moderately extensive emphysematous i nfiltrative/edematous changes in the extra peritoneal soft tissues. Correlate c linically to exclude gas forming infection and necrotizing fasciitis in the sof t tissues. 2. No pulmonary emboli or thoracic aortic aneurysm/dissection.
--- NOTE | 2025-09-15 08:04 | ECG_ITS ---
Test Date: 2025-09-15 08:09:01 Measurements Intervals [place] Rate: 65 P: 91 VA: 214 QRS: -43 QRSD: 93 T: 49 QT: 393 QTc: 410 Interpretive Statements SINUS RHYTHM WITH FIRST DEGREE AV BLOCK LEFT AXIS DEVIATION Electronically Signed On 09-15-2025 11:24:17 HEALTHCARE CONSULTING MANAGER by Mac Mckeon D.O
--- NOTE | 2025-09-15 08:30 | ED.GENADULT ---
HPI - General Adult General Chief complaint: Abdominal Pain Stated complaint: SOB s/p prostate sx last week Time Seen by Provider: 09/15/25 08:15 History of Present Illness HPI narrative: 69-year-old male present to the emergency department for evaluation for worsening abdominal pain abdominal swelling. Patient had laparoscopic prostatectomy done on 09/11. Patient reports he did have right side ecchymosis immediately after the surgery but this has worsened. Patient reports he has had no bowel movements over the last 2 days. Patient was concern for a small-bowel obstruction. Patient does feel he is having increased abdominal bloating. Patient is uncomfortable at time of initial evaluation. Related Data Home Medications ?Medication ?Instructions ?Recorded ?Confirmed ?Last Taken ?Type Faroese ginseng root extract 100 mg 100 mg PO DAILY 07/17/25 09/15/25 09/04/25 History capsule Held on 09/12/25. Instructions: Resume on 09/15/25. ascorbic acid (vitamin C) 1,000 mg 1 g PO DAILY 07/17/25 09/15/25 09/04/25 History capsule Held on 09/12/25. Instructions: Resume on 09/15/25. atorvastatin 40 mg tablet 40 mg PO DAILY 07/17/25 09/15/25 09/14/25 History cholecalciferol (vitamin D3) 50 2,000 unit PO DAILY 07/17/25 09/15/25 09/04/25 History mcg (2,000 unit) capsule Held on 09/12/25. Instructions: Resume on 09/15/25. ferrous sulfate 325 mg (65 mg 325 mg PO DAILY 07/17/25 09/15/25 09/14/25 History iron) tablet lorazepam 0.5 mg tablet 0.5 mg PO Q12H PRN anxiety 07/17/25 09/15/25 09/14/25 History multivitamin (Daily Multi-Vitamin 1 tablet PO DAILY 07/17/25 09/15/25 09/14/25 History tablet) omega 4-ixb-puq-fish oil 1,000 mg 1 cap PO DAILY 07/17/25 09/15/25 09/04/25 History (120 mg-180 mg) capsule (Fish Oil) Held on 09/12/25. Instructions: Resume on 09/15/25. trazodone 50 mg tablet 100 mg PO HS PRN sleep 07/17/25 09/15/25 09/14/25 History vitamin B complex 1 tablet PO DAILY 07/17/25 09/15/25 09/14/25 History valerian root 500 mg capsule 500 mg PO DAILY 09/01/25 09/15/25 09/04/25 History Held on 09/12/25. Instructions: Resume on 09/15/25. Allergies Allergy/AdvReac Type Severity Reaction Status Date / Time ciprofloxacin Allergy HIVES Verified 09/15/25 13:49 Review of Systems Review of Systems: All systems reviewed & are unremarkable except as noted in HPI and below PMFSH Past Medical History Medical History Prostate cancer Right inguinal hernia Hyperlipidemia Surgical History Surgical History Hx of radical prostatectomy 09/11/25 Social History Social History Smoking packs per day: 1.5 Smoking cigarettes per day: 30.0 Years smoked: 30 Smoking pack-years: 45.00 Smoking status: Former smoker Alcohol intake: current Drinks per week: 12 Alcohol use details: WHITE CLAW Substance use: current Substance use type: marijuana Other substance usage details: GUMMIE AND VAPE Last use: 08/31/25 Lack of Transportation: No Lack of Food: Never True Current Housing: I Have Housing Concerned About Future Housing: No Difficulty Paying Gas/Electric Bills: No Difficulty Paying for Meds: No Currently Unemployed: No Education: Trade/Vocational Certificate Difficulty w/ Childcare or Family Care: No Living arrangements: alone Spiritual care concerns: No Exam Narrative: APPEARANCE: A comfortable-appearing HEAD: normocephalic, atraumatic. EYES: PERRLA/EOMI, conjunctivae clear. NOSE: Normal no drainage EARS:TMS clear with good light reflex. THROAT: Pharynx clear, no exudate. NECK: Supple. No adenopathy, no masses. RESPIRATORY: Airway patent, respirations nonlabored. Clear to auscultation bilaterally, no rales, rhonchi, wheezing. CARDIOVASCULAR: Regular rate and rhythm without murmurs rubs or gallops. ABDOMINAL: Diffuse abdominal tenderness worse in the lower abdomen extensive ecchymosis right flank and right lower quadrant MUSCULOSKELETAL: Moves all extremities. Strength/ROM intact, No edema, No calf tenderness. NEURO: Alert. Cranial nerves II through XII intact. Good gait. Good coordination SKIN: Warm, dry. Normal Color Course Vital Signs Vital signs: Vital Signs Temperature 98.1 F 09/15/25 07:56 Pulse Rate 70 09/15/25 07:56 Respiratory Rate 20 09/15/25 07:56 Blood Pressure 145/69 H 09/15/25 07:56 Pulse Oximetry 100 09/15/25 07:56 Temperature 97.7 F 09/15/25 16:00 Pulse Rate 75 09/15/25 18:00 Respiratory Rate 18 09/15/25 16:00 Blood Pressure 115/58 L 09/15/25 16:00 Pulse Oximetry 97 09/15/25 16:00 Oxygen Delivery Room Air 09/15/25 13:39 Medical Decision Making MDM Narrative Medical decision making narrative: 69-year-old male present to the emergency department for evaluation for worsening abdominal pain postop. CT scan was initially read as potentially being necrotizing fasciitis but after discussion with Radiology knee they had been unaware that the patient had had recent surgery. Radiology did feel that the amount pneumoperitoneum was greater than would be expected after surgery. After discussion with Urology and General surgery they felt that necrotizing fasciitis was less likely and that the amount pneumoperitoneum was to be expected for the surgical procedure. Both surgery and Urology expressed low concern bowel perforation. Initially vancomycin, Zosyn and Flagyl had been ordered to cover for necrotizing fasciitis but this was decreased to Zosyn only. Patient does have a small bowel obstruction NG tube was placed. On re-evaluation after IV fluids and placement of a G-tube patient does look and feel significantly improved. Page patient was updated on the results of the workup and plan for admission. All questions concerns were addressed. Differential Diagnosis Differential Diagnosis: Hematoma, bowel perforation, neck addressing fasciitis, colitis, diverticulitis Vital Signs Vital Signs: Vital Signs Temperature 98.1 F 09/15/25 07:56 Pulse Rate 70 09/15/25 07:56 Respiratory Rate 20 09/15/25 07:56 Blood Pressure 145/69 H 09/15/25 07:56 Pulse Oximetry 100 09/15/25 07:56 Temperature 97.7 F 09/15/25 16:00 Pulse Rate 75 09/15/25 18:00 Respiratory Rate 18 09/15/25 16:00 Blood Pressure 115/58 L 09/15/25 16:00 Pulse Oximetry 97 09/15/25 16:00 Oxygen Delivery Room Air 09/15/25 13:39 Lab Data Lab results reviewed: Yes I reviewed the patient's lab results. 09/15/25 08:51 09/15/25 11:14 Labs: Lab Results 09/15/25 09/15/25 09/15/25 Range/Units 08:51 11:14 11:14 WBC 15.6 H (4.5-10.0) K/mm3 RBC 2.85 L (4.6-6.20) M/mm3 Hgb 9.6 L (14.0-18.0) g/dL Hct 27.4 L (42.0-52.0) % MCV 96.1 (80-100) fl MCH 33.7 (26-34) pg MCHC 35.0 (32-36) g/dl RDW 12.4 (11.5-14.5) % Plt Count 273 (150-375) k/mm3 MPV 9.5 (7.4-10.4) fl Immature Gran % (Auto) 0.4 (0-0.5) % Neut % (Auto) 62.3 (45.5-73.1) % Lymph % (Auto) 30.7 (18.3-44.2) % [place] % (Auto) 6.2 (2.6-8.5) % Eos % (Auto) 0.1 (0-4.4) % Baso % (Auto) 0.3 (0.2-1.2) % Lymph # (Auto) 4.79 H (0.9-3.2) K/mm3 Hayes # (Auto) 1.0 H (0.1-0.6) K/mm3 Eos # (Auto) 0.0 (0-0.3) K/mm3 Baso # (Auto) 0.1 (0.0-0.1) K/mm3 Abs Immat Gran (auto) 0.07 H (0.00-0.031) K/mm3 Absolute Neuts (auto) 9.7 H (1.3-6.7) K/mm3 Absolute Nucleated RBC 0.000 (0.0-0.012) K/mm3 Nucleated RBC % 0.0 (0.0-0.2) % ESR 117 H (0-20) mm/hr PT 13.6 (11.1-14.7) Seconds INR 1.0 APTT 24.7 (22.3-36.8) Seconds Sodium 129 L (137-145) mmol/L Potassium 4.3 (3.4-5.0) mmol/L Chloride 96 L (98-107) mmol/L Carbon Dioxide 28 (22-30) mmol/L Anion Gap 5 (4-12) mmol/L BUN 18 (9-20) mg/dL Creatinine 1.05 1.04 (0.7-1.3) mg/dL Estim Creat Clear Calc 58 59 ml/min Estimated GFR > 60 > 60 (59 - ) Glucose 138 H (65-110) mg/dL Lactic Acid 1.6 0.9 (0.7-2.0) mmol/L Calcium 9.3 (8.4-10.2) mg/dL Total Bilirubin 2.2 H (0.2-1.3) mg/dL AST 35 (17-59) U/L ALT 25 (6-50) U/L Alkaline Phosphatase 62 (38-126) U/L C-Reactive Protein Cancelled 2.6 H Total Protein 6.1 L (6.3-8.2) g/dL Albumin 3.5 (3.5-5.1) g/dL Lipase 119 (23-300) U/L Procalcitonin 0.1 ng/mL Urine Color Dark yellow (Yellow) Urine Appearance Cloudy H (Clear) Urine pH 7.0 (5.0-9.0) Ur Specific [place] 1.024 (1.001-1.035) Urine Protein 2+ H (Negative) mg/dL Urine Glucose (UA) Negative (Negative) mg/dL Urine Ketones 2+ H (Negative) mg/dL Ur Blood (Man) 3+ H (Negative) Urine Nitrate Negative (Negative) Urine Bilirubin 1+ H (Negative) Urine Urobilinogen 2.0 H (<2.0) mg/dL Leukocyte Esterase Rfl 1+ H (Negative) CHRIS/UL Urine RBC >100 H (0-2) /hpf Urine WBC 6-10 H (0-3) /hpf Ur Squamous Epith Cells None seen (Few) /hpf Calcium Oxalate Crystal Present (None) /hpf Urine Bacteria None seen /hpf Urine Casts 3-5 Nasal MRSA (PCR) Not detected (NOT DETECTE) Imaging Data Radiologist's impression: Impressions Chest/Abdomen/Pelvis CTA 09/15/25 10:26 IMPRESSION: 1. Findings consistent with mechanical small bowel obstruction and perforation with pneumoperitoneum noted. There is also moderately extensive emphysematous infiltrative/edematous changes in the extra peritoneal soft tissues. Correlate clinically to exclude gas forming infection and necrotizing fasciitis in the soft tissues. 2. No pulmonary emboli or thoracic aortic aneurysm/dissection. ADDENDUM: 09/15/25 1126 Study discussed with emergency department and surgical staff. Patient recently underwent surgical procedure which would explain pneumoperitoneum. 1. Small bowel gas pattern remains concerning for ileus versus developing small bowel obstruction. 2. Subcutaneous emphysema on the right side may be normal postsurgical changes. If there appears to be increased swelling or edema in association with this emphysema remains concerning for possible gas-forming infection. Abdomen X-Ray 09/15/25 12:10 IMPRESSION: Gastric catheter appears in good position. Extensive subcutaneous emphysema on the right side again noted. Discharge Plan Discharge Clinical Impression: Complete small bowel obstruction, Abdominal pain Patient Disposition: Still a Patient Condition: Serious
[2025-09-15 08:58] LABS: Hematocrit 27.4 % (42.0-52.0); Hemoglobin 9.6 g/dL (14.0-18.0); Immature Granulocyte Percent A 0.4 % (0-0.5); Lymphocytes Absolute Auto 4.79 K/mm3 (0.9-3.2); Mean Corpuscular HGB Conc 35.0 g/dl (32-36); Mean Corpuscular Hemoglobin 33.7 pg (26-34); Mean Corpuscular Volume 96.1 fl (80-100); Nucleated Red Blood Cells Absolute Auto 0.000 K/mm3 (0.0-0.012); Nucleated Red Blood Cells Perc 0.0 % (0.0-0.2); Platelet Count Result 273 k/mm3 (150-375); Red Blood Count 2.85 M/mm3 (4.6-6.20); White Blood Count 15.6 K/mm3 (4.5-10.0)
[2025-09-15 09:12] LABS: Add Urine Microscopic? YES; Appearance Urine Cloudy (Clear); Glucose Urine UA Negative (Negative); INR 1.0; Leukocyte Esterase Ur 1+ LEU/UL (Negative); Nitrate Urine Negative (Negative); Prothrombin Time 13.6 Seconds (11.1-14.7); Specific Grav Ur 1.024 (1.001-1.035)
[2025-09-15 09:13] LABS: Partial Thromboplastin Time 24.7 Seconds (22.3-36.8)
[2025-09-15 09:16] LABS: Alanine Aminotransferase 25 U/L (6-50); Albumin Level 3.5 g/dL (3.5-5.1); Alkaline Phosphatase 62 U/L (38-126); Anion Gap 5 mmol/L (4-12); Aspartate Amino Transferase 35 U/L (17-59); Bilirubin,Total 2.2 mg/dL (0.2-1.3); Blood Urea Nitrogen 18 mg/dL (9-20); Calcium 9.3 mg/dL (8.4-10.2); Carbon Dioxide 28 mmol/L (22-30); Chloride 96 mmol/L (98-107); Estimated CRCL calculation 58 ml/min; Estimated Glomerular Filt Rate > 60; Glucose 138 mg/dL (65-110); Lipase 119 U/L (23-300); Potassium 4.3 mmol/L (3.4-5.0); Sodium 129 mmol/L (137-145); Total Protein 6.1 g/dL (6.3-8.2)
[2025-09-15] MEDS: ONDANSETRON INJ 4 MG/2 ML VIAL IV PUSH (09:17)
[2025-09-15] MEDS: HYDROmorphone HCL INJ (*CRX) 1 MG/ML SYR 0.5 MG IV PUSH ×2 (09:21→21:34)
[2025-09-15] MEDS: LACTATED RINGERS 1,000 ML 999 ML IV CONT (11:25)
--- NOTE | 2025-09-15 11:33 | PM.CNGS ---
Assessment and Plan Assessment and plan (1) Small bowel obstruction: Code(s): K56.609 - Unspecified intestinal obstruction, unspecified as to partial versus complete obstruction Status: Acute Assessment and Plan: more likely postoperative ileus, will place NG tube for decompression, bowel rest, will proceed with small bowel series tomorrow if still no bowel function (2) Right inguinal hernia: Code(s): K40.90 - Unilateral inguinal hernia, without obstruction or gangrene, not specified as recurrent Status: Acute Assessment and Plan: moderate tenderness to palpation but reducible on exam, does not seem to be causing any obstruction and more chronic in nature (3) Superficial bruising of abdominal wall: Code(s): S30.11XA - Contusion of abdominal wall, initial encounter Status: Acute Assessment and Plan: secondary to recent surgery, will continue to follow, hold all anticoagulation at this point History of Present Illness Consult details Consult date: 09/15/25 Reason for consult: abdominal pain Requesting physician: Mikel England MD Narrative: The patient is a 69-year-old male status post robotic prostatectomy on 09/11 presenting to the emergency department complaining of severe right abdominal swelling, diffuse abdominal pain, intractable nausea and vomiting. The patient reports that since surgery he has had extensive bruising in his abdominal wall in the right. He reports that he has very poor appetite and is largely been unable to keep much down. He reports diffuse abdominal pain and distension. The patient reports his last bowel movement was before surgery. Review of Systems Review of Systems: All systems reviewed & are unremarkable except as noted in HPI and below PMFSH Social History Social History Smoking packs per day: 1.5 Smoking cigarettes per day: 30.0 Years smoked: 30 Smoking pack-years: 45.00 Smoking status: Former smoker Alcohol intake: current Drinks per week: 8 Alcohol use details: WHITE CLAW Substance use: current Substance use type: marijuana Other substance usage details: GUMMIE AND VAPE Last use: 08/31/25 Lack of Transportation: No Lack of Food: Never True Current Housing: Decline to Answer Concerned About Future Housing: Decline to Answer Difficulty Paying Gas/Electric Bills: Decline to Answer Difficulty Paying for Meds: Decline to Answer Currently Unemployed: Decline to Answer Education: Decline to Answer Difficulty w/ Childcare or Family Care: Decline to Answer Living arrangements: alone Spiritual care concerns: No Meds Home Medications and Allergies Home Medications ?Medication ?Instructions ?Recorded ?Confirmed ?Type [place] ginseng root extract 100 mg 100 mg PO DAILY 07/17/25 09/11/25 History capsule Held on 09/12/25. Instructions: Resume on 09/15/25. ascorbic acid (vitamin C) 1,000 mg 1 g PO DAILY 07/17/25 09/11/25 History capsule Held on 09/12/25. Instructions: Resume on 09/15/25. atorvastatin 40 mg tablet 40 mg PO DAILY 07/17/25 09/11/25 History cholecalciferol (vitamin D3) 50 2,000 unit PO DAILY 07/17/25 09/11/25 History mcg (2,000 unit) capsule Held on 09/12/25. Instructions: Resume on 09/15/25. ferrous sulfate 325 mg (65 mg 325 mg PO DAILY 07/17/25 09/11/25 History iron) tablet lorazepam 0.5 mg tablet 0.5 mg PO Q12H PRN anxiety 07/17/25 09/01/25 History multivitamin (Daily Multi-Vitamin 1 tablet PO DAILY 07/17/25 09/11/25 History tablet) omega 5-uaa-zne-fish oil 1,000 mg 1 cap PO DAILY 07/17/25 09/11/25 History (120 mg-180 mg) capsule (Fish Oil) Held on 09/12/25. Instructions: Resume on 09/15/25. trazodone 50 mg tablet 100 mg PO HS PRN sleep 07/17/25 09/01/25 History vitamin B complex 1 tablet PO DAILY 07/17/25 09/11/25 History valerian root 500 mg capsule 500 mg PO DAILY 09/01/25 09/11/25 History Held on 09/12/25. Instructions: Resume on 09/15/25. docusate sodium 100 mg capsule 100 mg PO DAILY #30 caps 09/12/25 Rx (Colace) hydrocodone 5 mg-acetaminophen 325 1 - 2 tablet PO Q6H PRN pain #20 09/12/25 Rx mg tablet tabs hyoscyamine sulfate 0.125 mg tablet 0.125 mg PO Q6H PRN bladder spasms 09/12/25 Rx #20 tabs sulfamethoxazole 800 1 tablet PO Q12H #6 tabs 09/12/25 Rx mg-trimethoprim 160 mg tablet Allergies Allergy/AdvReac Type Severity Reaction Status Date / Time ciprofloxacin Allergy HIVES Verified 09/11/25 13:19 Vital Signs Vital Signs - 24 hr 09/15/25 07:56 09/15/25 08:03 09/15/25 08:16 Temperature 36.7 C Pulse Rate 70 67 63 Respiratory Rate 20 23 H 20 Blood Pressure 145/69 H 145/69 H 145/71 H Pulse Oximetry 100 100 09/15/25 09:31 Temperature Pulse Rate 86 Respiratory Rate 20 Blood Pressure 136/70 Pulse Oximetry 94 Exam Const: General: cooperative, no acute distress and uncomfortable HENMT: Head: normal to inspection, normocephalic and atraumatic Eyes: General: appearance normal, both eyes and all related structures Neck: Neck: normal visual inspection, full ROM and no lymphadenopathy Resp: Auscultation: clear to auscultation bilaterally Cardio: Rate: regular rate Rhythm: regular rhythm GI: Inspection: normal to inspection, abdominal wall ecchymosis, distended and incision GI Palp: Yes abdominal tenderness, Yes Soft to palpation, No Tenderness to palpation present (GI) and No Guarding due to palpation present (GI) Other: Extensive right-sided ecchymosis from upper abdomen to groin and upper thigh, right inguinal hernia reducible Skin: General skin exam: normal color and no rashes or lesions noted Neuro: General: patient oriented x3 and CN's II-XI intact bilaterally Extrem: General: normal to inspection and full ROM Results Labs 09/15/25 08:51 09/15/25 08:51 Labs: Abnormal lab results 09/15/25 Range/Units 08:51 WBC 15.6 H (4.5-10.0) K/mm3 RBC 2.85 L (4.6-6.20) M/mm3 Hgb 9.6 L (14.0-18.0) g/dL Hct 27.4 L (42.0-52.0) % Lymph # (Auto) 4.79 H (0.9-3.2) K/mm3 Walker # (Auto) 1.0 H (0.1-0.6) K/mm3 Abs Immat Gran (auto) 0.07 H (0.00-0.031) K/mm3 Absolute Neuts (auto) 9.7 H (1.3-6.7) K/mm3 Sodium 129 L (137-145) mmol/L Chloride 96 L (98-107) mmol/L Glucose 138 H (65-110) mg/dL Total Bilirubin 2.2 H (0.2-1.3) mg/dL Total Protein 6.1 L (6.3-8.2) g/dL Urine Appearance Cloudy H (Clear) Urine Protein 2+ H (Negative) mg/dL Urine Ketones 2+ H (Negative) mg/dL Ur Blood (Man) 3+ H (Negative) Urine Bilirubin 1+ H (Negative) Urine Urobilinogen 2.0 H (<2.0) mg/dL Leukocyte Esterase Rfl 1+ H (Negative) CHRIS/UL Urine RBC >100 H (0-2) /hpf Urine WBC 6-10 H (0-3) /hpf Diabetes panel 09/15/25 Range/Units 08:51 Sodium 129 L (137-145) mmol/L Potassium 4.3 (3.4-5.0) mmol/L Chloride 96 L (98-107) mmol/L Carbon Dioxide 28 (22-30) mmol/L BUN 18 (9-20) mg/dL Creatinine 1.05 (0.7-1.3) mg/dL Glucose 138 H (65-110) mg/dL Calcium 9.3 (8.4-10.2) mg/dL AST 35 (17-59) U/L ALT 25 (6-50) U/L Alkaline Phosphatase 62 (38-126) U/L Total Protein 6.1 L (6.3-8.2) g/dL Albumin 3.5 (3.5-5.1) g/dL Calcium panel 09/15/25 Range/Units 08:51 Calcium 9.3 (8.4-10.2) mg/dL Albumin 3.5 (3.5-5.1) g/dL Pituitary panel 09/15/25 Range/Units 08:51 Sodium 129 L (137-145) mmol/L Potassium 4.3 (3.4-5.0) mmol/L Chloride 96 L (98-107) mmol/L Carbon Dioxide 28 (22-30) mmol/L BUN 18 (9-20) mg/dL Creatinine 1.05 (0.7-1.3) mg/dL Glucose 138 H (65-110) mg/dL Calcium 9.3 (8.4-10.2) mg/dL Adrenal panel 09/15/25 Range/Units 08:51 Sodium 129 L (137-145) mmol/L Potassium 4.3 (3.4-5.0) mmol/L Chloride 96 L (98-107) mmol/L Carbon Dioxide 28 (22-30) mmol/L BUN 18 (9-20) mg/dL Creatinine 1.05 (0.7-1.3) mg/dL Glucose 138 H (65-110) mg/dL Calcium 9.3 (8.4-10.2) mg/dL Total Bilirubin 2.2 H (0.2-1.3) mg/dL AST 35 (17-59) U/L ALT 25 (6-50) U/L Alkaline Phosphatase 62 (38-126) U/L Total Protein 6.1 L (6.3-8.2) g/dL Albumin 3.5 (3.5-5.1) g/dL All other labs normal. Imaging Abdomen CT scan report/results: report reviewed and image reviewed
[2025-09-15] MEDS: PIPERACILLIN/TAZOBACTAM SOD 3.375 GM in SODIUM CHLORIDE 0.9% IV 50 ML 100 ML IVPB ×3 (11:40→23:13)
[2025-09-15 11:48] LABS: CRP 2.6 mg/dL (<1.0); Estimated CRCL calculation 59 ml/min; Estimated Glomerular Filt Rate > 60
[2025-09-15 12:02] LABS: Procalcitonin 0.1 ng/mL
[2025-09-15 12:39] LABS: MRSA (PCR) NOT DETECTED (NOT DETECTE)
--- NOTE | 2025-09-15 12:48 | WPCEDHO ---
ED Hand Off Checklist All vitals saved:yes IV Site documented:yes All med administrations documented:yes Triage Note Triage Note PT TO ED VIA [facility] FOR 09/15/25 07:56 EVAL OF ABD PAIN S/P PROSTATE SURGERY WITH ROBOT BY DR LOPEZ 09/11/2025. LARGE AMOUNT OF SWELLING AND HEMATOMA NOTED AROUND LAP INCISION SITES. Allergies ciprofloxacin Allergy (Verified 09/11/25 13:19) HIVES Current Diagnoses Unilateral inguinal hernia, without obstruction or gangrene, not specified as recurrent (09/15/25) Unspecified intestinal obstruction, unspecified as to partial versus complete obstruction (09/15/25) Contusion of abdominal wall, initial encounter (09/15/25) Administered/Completed Medications Discontinued Medications Hydromorphone HCl (Hydromorphone Hcl Inj (*Crx) 1 Mg/Ml Syr) 0.5 mg IV PUSH ONCE STA Stop: 09/15/25 09:13 Last Admin: 09/15/25 09:21 Dose: 0.5 mg Documented By: HILDA Piperacillin Sod/Tazobactam (Sod 3.375 gm/ Sodium Chloride) 50 mls @ 100 mls/hr IVPB ONCE STA Stop: 09/15/25 11:21 Last Infusion: 09/15/25 12:15 Dose: Infused Documented By: Admin: 09/15/25 11:40 Dose: 100 mls/hr Documented By: ANGELA Metronidazole (Flagyl 500 Mg/Iso Soln 100 Ml) 500 mg in 100 mls @ 100 mls/hr IVPB ONCE STA Stop: 09/15/25 11:51 Last Admin: 09/15/25 12:14 Dose: Not Given Documented By: HILDA Non-Admin Reason: Order Discontinued Lactated Ringer's (Lr - Lactated Ringers Iv) 1,000 mls @ 999 mls/hr IV CONT .Q1H1M STA Stop: 09/15/25 11:59 Last Infusion: 09/15/25 12:47 Dose: Infused Documented By: Admin: 09/15/25 11:25 Dose: 999 mls/hr Documented By: ANGELA Vancomycin HCl (Vancomycin 2,000 Mg/Ns 500 Ml) 2,000 mg in 500 mls @ 250 mls/hr IVPB ONCE ONE Stop: 09/15/25 13:01 Last Admin: 09/15/25 12:47 Dose: Not Given Documented By: CFG Non-Admin Reason: Order Discontinued Ondansetron HCl (Ondansetron Inj 4 Mg/2 Ml Vial) 4 mg IV PUSH ONCE STA Stop: 09/15/25 09:13 Last Admin: 09/15/25 09:17 Dose: 4 mg Documented By: CFG Interventions/Assessments IV / Saline Lock, Insert Start: 09/15/25 07:46 Freq: Status: Active Protocol: Document 09/15/25 08:00 CFG (Rec: 09/15/25 09:54 CF [id number]) IV Assessment Peripheral Access Right Antecubital IV Catheter Access Initiated Before Arrival IV Insertion Date 09/15/25 Catheter Gauge 18 Ultrasound Used for No Placement IV Site Assessment WNL IV Care and WNL Maintenance PA: Gastrointestinal Assessment Start: 09/15/25 07:55 Freq: Status: Complete Protocol: Document 09/15/25 08:00 CFG (Rec: 09/15/25 09:54 CF [id number]) GI Assessment Gastrointestinal Bloating,Pain Symptoms Description Distended,Firm,Round,Tender All Quadrants Bowel Sounds Active Pattern Normal Last Vital Signs Temperature 98.1 F 09/15/25 07:56 Pulse Rate 72 09/15/25 11:38 Respiratory Rate 22 H 09/15/25 11:38 Pulse Oximetry 97 09/15/25 11:38 Blood Pressure 119/68 09/15/25 11:38 Blood Pressure Mean 83 09/15/25 11:38 Blood Pressure Position Sitting 09/15/25 11:37 Weight 81.1 kg 09/15/25 07:56 Last Result - Abnormals Only WBC 15.6 K/mm3 (4.5-10.0) H 09/15/25 08:51 RBC 2.85 M/mm3 (4.6-6.20) L 09/15/25 08:51 Hgb 9.6 g/dL (14.0-18.0) L 09/15/25 08:51 Hct 27.4 % (42.0-52.0) L 09/15/25 08:51 Lymph # (Auto) 4.79 K/mm3 (0.9-3.2) H 09/15/25 08:51 [place] # (Auto) 1.0 K/mm3 (0.1-0.6) H 09/15/25 08:51 Abs Immat Gran (auto) 0.07 K/mm3 (0.00-0.031) H 09/15/25 08:51 Absolute Neuts (auto) 9.7 K/mm3 (1.3-6.7) H 09/15/25 08:51 ESR 117 mm/hr (0-20) H 09/15/25 11:14 Sodium 129 mmol/L (137-145) L 09/15/25 08:51 Chloride 96 mmol/L (98-107) L 09/15/25 08:51 Glucose 138 mg/dL (65-110) H 09/15/25 08:51 Total Bilirubin 2.2 mg/dL (0.2-1.3) H 09/15/25 08:51 C-Reactive Protein 2.6 mg/dL (<1.0) H 09/15/25 11:14 Total Protein 6.1 g/dL (6.3-8.2) L 09/15/25 08:51 Urine Appearance Cloudy (Clear) H 09/15/25 08:51 Urine Protein 2+ mg/dL (Negative) H 09/15/25 08:51 Urine Ketones 2+ mg/dL (Negative) H 09/15/25 08:51 Ur Blood (Man) 3+ (Negative) H 09/15/25 08:51 Urine Bilirubin 1+ (Negative) H 09/15/25 08:51 Urine Urobilinogen 2.0 mg/dL (<2.0) H 09/15/25 08:51 Leukocyte Esterase Rfl 1+ CHRIS/UL (Negative) H 09/15/25 08:51 Urine RBC >100 /hpf (0-2) H 09/15/25 08:51 Urine WBC 6-10 /hpf (0-3) H 09/15/25 08:51 Most Recent Suicide Severity Rating Suicide Severity Rating NO RISK INDICATED 09/15/25 07:56
--- NOTE | 2025-09-15 13:19 | PM.IMHP ---
H&P: HPI History of Present Illness Date/Time: 09/15/25 13:19 Chief Complaint: abd pain Narrative: 69-year-old male past medical history of prostate cancer s/p robotic assisted radical prostatectomy on 09/11/25, hyperlipidemia presents to the ED on 09/15/2025 with complaints of increasing abdominal pain. Patient had a robotic assisted radical prostatectomy with bilateral pelvic lymphadenectomy, extensive lysis of adhesions on 09/11/25 and was discharged the next day. Patient states after discharge home his abdomen slowly became more painful, swollen, and bruised. He describes the pain as an aching and stabbing feeling rated 7/10 today. He denies fevers, chest pain. Patient states he has been having episodes of vomiting and/or dry heaving. States he is passing gas intermittently but denies bowel movement since prior to surgery. The patient initially asked his brother to take him to the ED but became so uncomfortable that he requested EMS. Initial vital signs 145/69, HR 70, respirations 20, afebrile and 100% on room air Lab significant for leukocytosis with WBC 15.6, anemia with hemoglobin 9.6, ESR 117, sodium 129, chloride 96, total bilirubin 2.2, CRP 2.6 UA 2+ protein, ketones 2+, blood 3+, bilirubin 1+, urobilinogen 2.0, leukocyte esterase 1+, rbc's greater than 100, wbc's 6-10, no bacteria seen. MRSA swab negative. CTA chest abdomen pelvis revealed small bowel gas pattern concerning for ileus versus developing SBO, subcu emphysema on the right side abdominal wall may be normal postsurgical changes. It would be concerning for possible gas-forming infection if the swelling or edema increases in this area. Review of Systems Review of Systems: All systems reviewed & are unremarkable except as noted in HPI and below PMFSH Past Medical History Medical History Prostate cancer Right inguinal hernia Hyperlipidemia Surgical History Surgical History Hx of radical prostatectomy 09/11/25 Social History Social History Smoking packs per day: 1.5 Smoking cigarettes per day: 30.0 Years smoked: 30 Smoking pack-years: 45.00 Smoking status: Former smoker Alcohol intake: current Drinks per week: 12 Alcohol use details: WHITE CLAW Substance use: current Substance use type: marijuana Other substance usage details: GUMMIE AND VAPE Last use: 08/31/25 Lack of Transportation: No Lack of Food: Never True Current Housing: I Have Housing Concerned About Future Housing: No Difficulty Paying Gas/Electric Bills: No Difficulty Paying for Meds: No Currently Unemployed: No Education: Trade/Vocational Certificate Difficulty w/ Childcare or Family Care: No Living arrangements: alone Spiritual care concerns: No Meds Home Medications and Allergies Home Medications ?Medication ?Instructions ?Recorded ?Confirmed ?Type Romanian ginseng root extract 100 mg 100 mg PO DAILY 07/17/25 09/15/25 History capsule Held on 09/12/25. Instructions: Resume on 09/15/25. ascorbic acid (vitamin C) 1,000 mg 1 g PO DAILY 07/17/25 09/15/25 History capsule Held on 09/12/25. Instructions: Resume on 09/15/25. atorvastatin 40 mg tablet 40 mg PO DAILY 07/17/25 09/15/25 History cholecalciferol (vitamin D3) 50 2,000 unit PO DAILY 07/17/25 09/15/25 History mcg (2,000 unit) capsule Held on 09/12/25. Instructions: Resume on 09/15/25. ferrous sulfate 325 mg (65 mg 325 mg PO DAILY 07/17/25 09/15/25 History iron) tablet lorazepam 0.5 mg tablet 0.5 mg PO Q12H PRN anxiety 07/17/25 09/15/25 History multivitamin (Daily Multi-Vitamin 1 tablet PO DAILY 07/17/25 09/15/25 History tablet) omega 7-ehf-mub-fish oil 1,000 mg 1 cap PO DAILY 07/17/25 09/15/25 History (120 mg-180 mg) capsule (Fish Oil) Held on 09/12/25. Instructions: Resume on 09/15/25. trazodone 50 mg tablet 100 mg PO HS PRN sleep 07/17/25 09/15/25 History vitamin B complex 1 tablet PO DAILY 07/17/25 09/15/25 History valerian root 500 mg capsule 500 mg PO DAILY 09/01/25 09/15/25 History Held on 09/12/25. Instructions: Resume on 09/15/25. docusate sodium 100 mg capsule 100 mg PO DAILY #30 caps 09/12/25 09/15/25 Rx (Colace) hydrocodone 5 mg-acetaminophen 325 1 - 2 tablet PO Q6H PRN pain #20 09/12/25 09/15/25 Rx mg tablet tabs hyoscyamine sulfate 0.125 mg tablet 0.125 mg PO Q6H PRN bladder spasms 09/12/25 09/15/25 Rx #20 tabs sulfamethoxazole 800 1 tablet PO Q12H #6 tabs 09/12/25 09/15/25 Rx mg-trimethoprim 160 mg tablet Allergies Allergy/AdvReac Type Severity Reaction Status Date / Time ciprofloxacin Allergy HIVES Verified 09/15/25 13:49 Vital Signs Vital Signs - 24 hr 09/15/25 07:56 09/15/25 08:03 09/15/25 08:16 Temperature 98.1 F Pulse Rate 70 67 63 Respiratory Rate 20 23 H 20 Blood Pressure 145/69 H 145/69 H 145/71 H Pulse Oximetry 100 100 09/15/25 09:31 09/15/25 11:37 09/15/25 11:38 Temperature Pulse Rate 86 74 72 Respiratory Rate 20 20 22 H Blood Pressure 136/70 119/68 119/68 Pulse Oximetry 94 98 97 Exam Narrative: GENERAL: non-toxic appearing, in no acute distress. HEAD: Normocephalic, atraumatic. EYES: PERRLA. Conjunctivae clear. NOSE: NGT in place THROAT: Pharynx clear, no exudate. NECK: Trachea midline. No adenopathy, no masses. RESPIRATORY: Airway patent, respirations nonlabored. CTA. CARDIOVASCULAR: Regular rate and rhythm without murmurs, rubs, or gallops. BREASTS: Defer GASTROINTESTINAL: Abdomen rounded and tender to palpation with minimal bowel sounds heard throughout. Extensive ecchymosis to right abdomen extending to hip. Crepitus to right side abdominal wall. Surgical site approximated with surgical glue intact. Small umbilical hernia reducible. Right inguinal hernia with pain but reducible. NGT output bilious GENITOURINARY: Olivera in place with tea-colored urine. MUSCULOSKELETAL: Moves all extremities. No gross deformities. No calf tenderness. SKIN: Warm, dry, normal color. NEURO: A&O X4. Speech clear PSYCHIATRIC: Normal interaction H&P: Results Labs Labs: Short CBC 09/15/25 Range/Units 08:51 WBC 15.6 H (4.5-10.0) K/mm3 Hgb 9.6 L (14.0-18.0) g/dL Hct 27.4 L (42.0-52.0) % Plt Count 273 (150-375) k/mm3 BMP 09/15/25 09/15/25 08:51 11:14 Sodium 129 L Potassium 4.3 Chloride 96 L Carbon Dioxide 28 BUN 18 Creatinine 1.05 1.04 Glucose 138 H Calcium 9.3 Liver Function 09/15/25 Range/Units 08:51 Total Bilirubin 2.2 H (0.2-1.3) mg/dL AST 35 (17-59) U/L ALT 25 (6-50) U/L Alkaline Phosphatase 62 (38-126) U/L Albumin 3.5 (3.5-5.1) g/dL Urine 09/15/25 Range/Units 08:51 Urine Color Dark yellow (Yellow) Urine Appearance Cloudy H (Clear) Urine pH 7.0 (5.0-9.0) Ur Specific [place] 1.024 (1.001-1.035) Urine Protein 2+ H (Negative) mg/dL Urine Glucose (UA) Negative (Negative) mg/dL Assessment and Plan Assessment and plan (1) Small bowel obstruction: Code(s): K56.609 - Unspecified intestinal obstruction, unspecified as to partial versus complete obstruction Status: Acute Assessment and Plan: Developing SBO versus postop ileus (more likely postop ileus). Increasing abdominal pain and swelling since 09/13. CTA chest abdomen pelvis revealed small bowel gas pattern concerning for ileus versus developing SBO, subcutaneous emphysema on the right side abdominal wall may be normal postsurgical changes. It would be concerning for possible gas-forming infection if the swelling or edema increases in this area. -general surgery consult with plans for small-bowel series on 09/16 if still no bowel function -NGT to LIS -NPO for bowel rest -encourage ambulation -no concern for acute abdomen on exam at this time -monitor I&O -monitor electrolytes, CBC -LR at 125 started on 09/15 -hydromorphone p.r.n. -Zofran p.r.n. -some concern but low probability of bowel perforation. Prophylactic Zosyn q.6 hours. -discontinue vanc and metronidazole (2) Prostate cancer: Code(s): C61 - Malignant neoplasm of prostate Status: Chronic Assessment and Plan: Status post robotic assisted radical prostatectomy with bilateral pelvic lymphadenectomy, extensive lysis of adhesions on 09/11/25. Lymph nodes and surgical margins negative for metastatic adenocarcinoma per pathology report. -urology consult -postop Olivera in place (3) Superficial bruising of abdominal wall: Qualifiers: Encounter type: initial encounter Qualified Code(s): S30.11XA - Contusion of abdominal wall, initial encounter Code(s): S30.11XA - Contusion of abdominal wall, initial encounter Status: Acute Assessment and Plan: Related to recent robotic assisted radical prostatectomy requiring lysis of extensive abdominal adhesions. -holding anticoagulation -low concern for active bleeding -monitor hemoglobin, hematocrit (4) Hyperlipidemia: Qualifiers: Hyperlipidemia type: unspecified Qualified Code(s): E78.5 - Hyperlipidemia, unspecified Code(s): E78.5 - Hyperlipidemia, unspecified Status: Chronic Assessment and Plan: Continue atorvastatin Plan Diet: NPO GI prophylaxis: DVT prophylaxis: SCDs lines/drains: PIV, Olivera, NGT Fluids: 1 L LR-LR at 125 started on 09/15 Code status: Full Quality VTE Prophylaxis VTE prophylaxis: mechanical ordered Hospitalist MIPS Advance Care Plan I have confirmed that the patient's Advanced Care Plan is present, code status is documented, or surrogate decision maker is listed in patient medical record.: Yes Medication Reconciliation I have utilized all available resources to obtain, update and review the patients current medications (includes all prescriptions, OTC, herbals, cannabis, and nutritional supplements).: Yes
--- NOTE | 2025-09-15 13:20 | ADMGEN ---
This patient, Rigoberto Charles, was admitted to IMU Room 209-01 @ 1315. Patien oriented to hospital policies and general routines including ID bracelet, bed and alarms, visiting hours, pain management, procedures, bathroom and other care routines, personal items, smoking policy, room service/diet, and visiting hours. Ng to Right Nare @ 60cm; Olivera to bag dark celia. Olivera place by MD @ 1week ago post prostatectomy Information on how to activate the Rapid Response Team has been discussed. Patient are encouraged to report perceived risks to care and to ask questions if they do not understand what they are told or what they should do.
[2025-09-15] MEDS: metroNIDAZOLE 500 MG/ISO 100ML 500 MG/100 ML BAG 100 MG IVPB (14:13)
[2025-09-15] MEDS: LACTATED RINGERS 1,000 ML 125 ML IV CONT ×2 (14:14→21:43)
--- NOTE | 2025-09-15 14:40 | WNDPHOTO ---
PHOTO ONLY - See Nursing Notes and/ or assessments for documentation.
--- NOTE | 2025-09-15 17:48 | WPDURCON ---
Assessment and Plan Assessment and plan (1) Small bowel obstruction: Code(s): K56.609 - Unspecified intestinal obstruction, unspecified as to partial versus complete obstruction Status: Acute (2) Prostate cancer: Code(s): C61 - Malignant neoplasm of prostate Status: Chronic (3) Superficial bruising of abdominal wall: Code(s): S30.11XA - Contusion of abdominal wall, initial encounter Status: Acute Assessment and Plan: Appreciate Dr. Campbell's evaluation and input Agree that clinical picture is most consistent with an adynamic ileus. The extent of his intraperitoneal adhesions required an unusual degree of bowel manipulation that it typically is not undertaken during a prostatectomy. This certainly puts him at risk for postoperative ileus. Urology Consult Note HPI Date Seen: 09/15/25 Requesting Physician: Jose Antonio Santana MD Primary Care Provider: Fernandez Lepe, Consult Narrative Narrative: Rigoberto Charles is a 69 year old male Who is obviously well known to me having undergone a robotic prostatectomy with bilateral pelvic lymphadenectomy just 4 days ago. His operative procedure was notable for extensive abdominal adhesions. Otherwise procedure was uneventful. Postoperatively he had some transient nausea and episode of scant emesis on the evening of the procedure but the following morning was tolerating a diet and ambulating. He was discharged on postop day 1. He returns to the emergency department with progressive abdominal distension, progressive ecchymosis in the abdominal wall with food intolerance and persistent nausea vomiting. After placement of an NG tube in the emergency department he feels significantly better. He denies fevers chills melena or hematochezia. He is tolerating his Olivera catheter reasonably well. Review of Systems Cardiovascular: Cardiovascular: Denies chest pain, Denies lightheadedness, Denies palpitations and Denies dyspnea Respiratory: Respiratory: Denies dyspnea Gastrointestinal: Gastrointestinal: Reports abdominal pain, Denies melena, Reports bloating, Reports nausea and Reports vomiting Genitourinary: Genitourinary: Denies hematuria and Denies dysuria Endocrine: Endocrine: Denies palpitations PMF Past Medical History Medical History Prostate cancer Right inguinal hernia Hyperlipidemia Surgical History Surgical History Hx of radical prostatectomy 11/13/25 Social History Social History Smoking packs per day: 1.5 Smoking cigarettes per day: 30.0 Years smoked: 30 Smoking pack-years: 45.00 Smoking status: Former smoker Alcohol intake: current Drinks per week: 12 Alcohol use details: WHITE CLAW Substance use: current Substance use type: marijuana Other substance usage details: GUMMIE AND VAPE Last use: 08/31/25 Lack of Transportation: No Lack of Food: Never True Current Housing: I Have Housing Concerned About Future Housing: No Difficulty Paying Gas/Electric Bills: No Difficulty Paying for Meds: No Currently Unemployed: No Education: Trade/Vocational Certificate Difficulty w/ Childcare or Family Care: No Living arrangements: alone Spiritual care concerns: No Meds Home Medications and Allergies Home Medications ?Medication ?Instructions ?Recorded ?Confirmed ?Type Albanian ginseng root extract 100 mg 100 mg PO DAILY 07/17/25 09/15/25 History capsule Held on 09/12/25. Instructions: Resume on 09/15/25. ascorbic acid (vitamin C) 1,000 mg 1 g PO DAILY 07/17/25 09/15/25 History capsule Held on 09/12/25. Instructions: Resume on 09/15/25. atorvastatin 40 mg tablet 40 mg PO DAILY 07/17/25 09/15/25 History cholecalciferol (vitamin D3) 50 2,000 unit PO DAILY 07/17/25 09/15/25 History mcg (2,000 unit) capsule Held on 09/12/25. Instructions: Resume on 09/15/25. ferrous sulfate 325 mg (65 mg 325 mg PO DAILY 07/17/25 09/15/25 History iron) tablet lorazepam 0.5 mg tablet 0.5 mg PO Q12H PRN anxiety 07/17/25 09/15/25 History multivitamin (Daily Multi-Vitamin 1 tablet PO DAILY 07/17/25 09/15/25 History tablet) omega 0-ajc-gcj-fish oil 1,000 mg 1 cap PO DAILY 07/17/25 09/15/25 History (120 mg-180 mg) capsule (Fish Oil) Held on 09/12/25. Instructions: Resume on 09/15/25. trazodone 50 mg tablet 100 mg PO HS PRN sleep 07/17/25 09/15/25 History vitamin B complex 1 tablet PO DAILY 07/17/25 09/15/25 History valerian root 500 mg capsule 500 mg PO DAILY 09/01/25 09/15/25 History Held on 09/12/25. Instructions: Resume on 09/15/25. docusate sodium 100 mg capsule 100 mg PO DAILY #30 caps 09/12/25 09/15/25 Rx (Colace) hydrocodone 5 mg-acetaminophen 325 1 - 2 tablet PO Q6H PRN pain #20 09/12/25 09/15/25 Rx mg tablet tabs hyoscyamine sulfate 0.125 mg tablet 0.125 mg PO Q6H PRN bladder spasms 09/12/25 09/15/25 Rx #20 tabs sulfamethoxazole 800 1 tablet PO Q12H #6 tabs 09/12/25 09/15/25 Rx mg-trimethoprim 160 mg tablet Allergies Allergy/AdvReac Type Severity Reaction Status Date / Time ciprofloxacin Allergy HIVES Verified 09/15/25 13:49 Vital Signs Vital Signs - 24 hr 09/15/25 07:56 09/15/25 08:03 09/15/25 08:16 Temperature 98.1 F Pulse Rate 70 67 63 Respiratory Rate 20 23 H 20 Blood Pressure 145/69 H 145/69 H 145/71 H Pulse Oximetry 100 100 Oxygen Delivery 09/15/25 09:31 09/15/25 11:37 09/15/25 11:38 Temperature Pulse Rate 86 74 72 Respiratory Rate 20 20 22 H Blood Pressure 136/70 119/68 119/68 Pulse Oximetry 94 98 97 Oxygen Delivery 09/15/25 13:15 09/15/25 13:39 09/15/25 16:00 Temperature 98 F Pulse Rate 73 72 Respiratory Rate 18 Blood Pressure 138/54 L Pulse Oximetry 100 Oxygen Delivery Room Air 09/15/25 16:00 Temperature 97.7 F Pulse Rate 76 Respiratory Rate 18 Blood Pressure 115/58 L Pulse Oximetry 97 Oxygen Delivery Exam GI: Inspection: abdominal wall ecchymosis ( extensive, predominantly right flank and right lower quadrant) and distended GI Palp: Yes Tenderness to palpation present (GI) and No Guarding due to palpation present (GI) Auscultation: abnormal bowel sounds Results Labs 09/15/25 08:51 09/15/25 11:14 Labs: Short CBC 09/15/25 Range/Units 08:51 WBC 15.6 H (4.5-10.0) K/mm3 Hgb 9.6 L (14.0-18.0) g/dL Hct 27.4 L (42.0-52.0) % Plt Count 273 (150-375) k/mm3 BMP 09/15/25 09/15/25 08:51 11:14 Sodium 129 L Potassium 4.3 Chloride 96 L Carbon Dioxide 28 BUN 18 Creatinine 1.05 1.04 Glucose 138 H Calcium 9.3 Liver Function 09/15/25 Range/Units 08:51 Total Bilirubin 2.2 H (0.2-1.3) mg/dL AST 35 (17-59) U/L ALT 25 (6-50) U/L Alkaline Phosphatase 62 (38-126) U/L Albumin 3.5 (3.5-5.1) g/dL Urine 09/15/25 Range/Units 08:51 Urine Color Dark yellow (Yellow) Urine Appearance Cloudy H (Clear) Urine pH 7.0 (5.0-9.0) Ur Specific [place] 1.024 (1.001-1.035) Urine Protein 2+ H (Negative) mg/dL Urine Glucose (UA) Negative (Negative) mg/dL
[2025-09-16] VITALS (15 sets, daily range): BP systolic 120–153; BP diastolic 54–76; PULSE 69–88; RESP 14–22; TEMP 36.3–36.9; O2SAT 98–100
[2025-09-16 04:24] LABS: Hematocrit 26.1 % (42.0-52.0); Hemoglobin 8.6 g/dL (14.0-18.0); Immature Granulocyte Percent A 0.3 % (0-0.5); Lymphocytes Absolute Auto 6.31 K/mm3 (0.9-3.2); Mean Corpuscular HGB Conc 33.0 g/dl (32-36); Mean Corpuscular Hemoglobin 33.0 pg (26-34); Mean Corpuscular Volume 100.0 fl (80-100); Nucleated Red Blood Cells Absolute Auto 0.000 K/mm3 (0.0-0.012); Nucleated Red Blood Cells Perc 0.0 % (0.0-0.2); Platelet Count Result 245 k/mm3 (150-375); Red Blood Count 2.61 M/mm3 (4.6-6.20); White Blood Count 12.2 K/mm3 (4.5-10.0)
[2025-09-16 04:44] LABS: Anion Gap 4 mmol/L (4-12); Blood Urea Nitrogen 20 mg/dL (9-20); Calcium 8.4 mg/dL (8.4-10.2); Carbon Dioxide 31 mmol/L (22-30); Chloride 98 mmol/L (98-107); Estimated CRCL calculation 57 ml/min; Estimated Glomerular Filt Rate > 60; Glucose 87 mg/dL (65-110); Potassium 3.8 mmol/L (3.4-5.0); Sodium 133 mmol/L (137-145)
[2025-09-16] MEDS: LACTATED RINGERS 1,000 ML 125 ML IV CONT ×3 (05:07→21:25)
[2025-09-16] MEDS: PIPERACILLIN/TAZOBACTAM SOD 3.375 GM in SODIUM CHLORIDE 0.9% IV 50 ML 100 ML IVPB ×4 (05:07→23:19)
--- NOTE | 2025-09-16 07:39 | WPDUROPN2 ---
Progress Note: A&P Assessment and Plan (1) Small bowel obstruction: Code(s): K56.609 - Unspecified intestinal obstruction, unspecified as to partial versus complete obstruction Status: Acute (2) Prostate cancer: Code(s): C61 - Malignant neoplasm of prostate Status: Chronic (3) Superficial bruising of abdominal wall: Qualifiers: Encounter type: initial encounter Qualified Code(s): S30.11XA - Contusion of abdominal wall, initial encounter Code(s): S30.11XA - Contusion of abdominal wall, initial encounter Status: Acute Assessment and Plan: Reports scant flatus but no definitive signs of return of bowel function (no bowel sounds and ongoing high NG output) Abd. exam improved today - less distension and tenderness H/H down slightly today but no signs of ongoing blood loss. Minimal blood loss at time of surgery. Suspect post-op anemia mainly attributable to abdominal wall bleed. Would not currently recommend transfusion. Subjective Subjective Date/Time Seen: 09/16/25 07:39 Interval history: Comfortable - feels much better following NG tube placement Review of Systems Cardiovascular: Cardiovascular: Denies chest pain, Denies lightheadedness, Denies palpitations and Denies dyspnea Respiratory: Respiratory: Denies dyspnea Gastrointestinal: Gastrointestinal: Denies diarrhea, Denies nausea and Denies vomiting Genitourinary: Genitourinary: Denies hematuria and Denies dysuria Endocrine: Endocrine: Denies palpitations Exam GI: Inspection: abdominal wall ecchymosis ( extensive, predominantly right flank and right lower quadrant) and distended GI Palp: Yes Tenderness to palpation present (GI) and No Guarding due to palpation present (GI) Auscultation: abnormal bowel sounds Objective Data Vital Signs Vital Signs: Vital Signs - 24 hr 09/15/25 07:56 09/15/25 08:03 09/15/25 08:16 Temperature 98.1 F Pulse Rate 70 67 63 Respiratory Rate 20 23 H 20 Blood Pressure 145/69 H 145/69 H 145/71 H Pulse Oximetry 100 100 Oxygen Delivery 09/15/25 09:31 09/15/25 11:37 09/15/25 11:38 Temperature Pulse Rate 86 74 72 Respiratory Rate 20 20 22 H Blood Pressure 136/70 119/68 119/68 Pulse Oximetry 94 98 97 Oxygen Delivery 09/15/25 13:15 09/15/25 13:39 09/15/25 16:00 Temperature 98 F Pulse Rate 73 72 Respiratory Rate 18 Blood Pressure 138/54 L Pulse Oximetry 100 Oxygen Delivery Room Air 09/15/25 16:00 09/15/25 18:00 09/15/25 20:00 Temperature 97.7 F 98.5 F Pulse Rate 76 75 79 Respiratory Rate 18 16 Blood Pressure 115/58 L 130/56 L Pulse Oximetry 97 99 Oxygen Delivery 09/15/25 20:00 09/15/25 20:00 09/15/25 22:00 Temperature Pulse Rate 80 76 Respiratory Rate Blood Pressure Pulse Oximetry Oxygen Delivery Room Air 09/15/25 23:47 09/15/25 23:54 09/16/25 00:00 Temperature 97.9 F Pulse Rate 67 69 Respiratory Rate 18 Blood Pressure 111/58 L Pulse Oximetry 99 Oxygen Delivery Room Air 09/16/25 02:00 09/16/25 03:31 09/16/25 04:00 Temperature 98.2 F Pulse Rate 74 72 Respiratory Rate 16 Blood Pressure 122/54 L Pulse Oximetry 98 Oxygen Delivery Room Air 09/16/25 04:00 09/16/25 06:00 09/16/25 07:33 Temperature 98.4 F Pulse Rate 73 70 74 Respiratory Rate 14 Blood Pressure 124/60 Pulse Oximetry 100 Oxygen Delivery Intake/Output Intake/Output: Intake & Output 09/13/25 09/14/25 09/15/25 09/16/25 23:59 23:59 23:59 23:59 Intake Total 2135.4 975 Output Total 1375 800 Balance 760.4 175 Meds/Results Medications: Active Medications Generic Name Dose Route Start Last Admin Trade Name Shaquilleq PRN Reason Stop Dose Admin Atorvastatin Calcium 40 mg 09/16/25 09:00 Atorvastatin 40 Mg Tablet PO DAILY JAMA Ferrous Sulfate 325 mg 09/16/25 09:00 Ferrous Sulfate 325 Mg Tablet BY MOUTH DAILY JAMA Hydromorphone HCl 0.5 mg 09/15/25 11:50 09/15/25 21:34 Hydromorphone Hcl Inj (*Crx) 1 Mg/Ml Syr IV PUSH 0.5 mg Q4H PRN Administration Pain Rated 7-10 Lactated Ringer's 1,000 mls @ 125 mls/hr 09/15/25 11:50 09/16/25 05:07 Lr - Lactated Ringers Iv IV CONT 125 mls/hr .Q8H JAMA Administration Piperacillin Sod/Tazobactam 50 mls @ 100 mls/hr 09/15/25 18:00 09/16/25 05:07 Sod 3.375 gm/ Sodium Chloride IVPB 100 mls/hr Q6HR JAMA Administration Ondansetron HCl 4 mg 09/15/25 11:50 Ondansetron Inj 4 Mg/2 Ml Vial IV PUSH Q4H PRN Nausea Radiology Results: ITS Impressions Chest/Abdomen/Pelvis CTA 09/15/25 10:26 IMPRESSION: 1. Findings consistent with mechanical small bowel obstruction and perforation with pneumoperitoneum noted. There is also moderately extensive emphysematous infiltrative/edematous changes in the extra peritoneal soft tissues. Correlate clinically to exclude gas forming infection and necrotizing fasciitis in the soft tissues. 2. No pulmonary emboli or thoracic aortic aneurysm/dissection. ADDENDUM: 09/15/25 1126 Study discussed with emergency department and surgical staff. Patient recently underwent surgical procedure which would explain pneumoperitoneum. 1. Small bowel gas pattern remains concerning for ileus versus developing small bowel obstruction. 2. Subcutaneous emphysema on the right side may be normal postsurgical changes. If there appears to be increased swelling or edema in association with this emphysema remains concerning for possible gas-forming infection. Abdomen X-Ray 09/15/25 12:10 IMPRESSION: Gastric catheter appears in good position. Extensive subcutaneous emphysema on the right side again noted. Labs Labs: Laboratory Results - last 24 hr 09/15/25 09/15/25 09/15/25 08:51 11:14 11:14 WBC 15.6 H RBC 2.85 L Hgb 9.6 L Hct 27.4 L MCV 96.1 MCH 33.7 MCHC 35.0 RDW 12.4 Plt Count 273 MPV 9.5 Immature Gran % (Auto) 0.4 Neut % (Auto) 62.3 Lymph % (Auto) 30.7 [place] % (Auto) 6.2 Eos % (Auto) 0.1 Baso % (Auto) 0.3 Lymph # (Auto) 4.79 H [place] # (Auto) 1.0 H Eos # (Auto) 0.0 Baso # (Auto) 0.1 Abs Immat Gran (auto) 0.07 H Absolute Neuts (auto) 9.7 H Absolute Nucleated RBC 0.000 Nucleated RBC % 0.0 ESR 117 H PT 13.6 INR 1.0 APTT 24.7 Sodium 129 L Potassium 4.3 Chloride 96 L Carbon Dioxide 28 Anion Gap 5 BUN 18 Creatinine 1.05 1.04 Estim Creat Clear Calc 58 59 Estimated GFR > 60 > 60 Glucose 138 H Lactic Acid 1.6 0.9 Calcium 9.3 Total Bilirubin 2.2 H AST 35 ALT 25 Alkaline Phosphatase 62 C-Reactive Protein Cancelled 2.6 H Total Protein 6.1 L Albumin 3.5 Lipase 119 Procalcitonin 0.1 Urine Color Dark yellow Urine Appearance Cloudy H Urine pH 7.0 Ur Specific [place] 1.024 Urine Protein 2+ H Urine Glucose (UA) Negative Urine Ketones 2+ H Ur Blood (Man) 3+ H Urine Nitrate Negative Urine Bilirubin 1+ H Urine Urobilinogen 2.0 H Leukocyte Esterase Rfl 1+ H Urine RBC >100 H Urine WBC 6-10 H Ur Squamous Epith Cells None seen Calcium Oxalate Crystal Present Urine Bacteria None seen Urine Casts 3-5 Nasal MRSA (PCR) Not detected 09/16/25 03:26 WBC 12.2 H RBC 2.61 L Hgb 8.6 L Hct 26.1 L MCV 100.0 MCH 33.0 MCHC 33.0 RDW 13.1 Plt Count 245 MPV 9.5 Immature Gran % (Auto) 0.3 Neut % (Auto) 39.2 L Lymph % (Auto) 51.8 H [place] % (Auto) 6.5 Eos % (Auto) 1.8 Baso % (Auto) 0.4 Lymph # (Auto) 6.31 H [place] # (Auto) 0.8 H Eos # (Auto) 0.2 Baso # (Auto) 0.1 Abs Immat Gran (auto) 0.04 H Absolute Neuts (auto) 4.8 Absolute Nucleated RBC 0.000 Nucleated RBC % 0.0 ESR PT INR APTT Sodium 133 L Potassium 3.8 Chloride 98 Carbon Dioxide 31 H Anion Gap 4 BUN 20 Creatinine 1.07 Estim Creat Clear Calc 57 Estimated GFR > 60 Glucose 87 Lactic Acid Calcium 8.4 Total Bilirubin AST ALT Alkaline Phosphatase C-Reactive Protein Total Protein Albumin Lipase Procalcitonin Urine Color Urine Appearance Urine pH Ur Specific [place] Urine Protein Urine Glucose (UA) Urine Ketones Ur Blood (Man) Urine Nitrate Urine Bilirubin Urine Urobilinogen Leukocyte Esterase Rfl Urine RBC Urine WBC Ur Squamous Epith Cells Calcium Oxalate Crystal Urine Bacteria Urine Casts Nasal MRSA (PCR)
--- NOTE | 2025-09-16 08:49 | PM.IMPN ---
Progress Note: A&P Assessment and Plan (1) Small bowel obstruction: Code(s): K56.609 - Unspecified intestinal obstruction, unspecified as to partial versus complete obstruction Status: Acute Assessment and Plan: Developing SBO versus postop ileus (more likely postop ileus). Increasing abdominal pain and swelling since 09/13. CTA chest abdomen pelvis revealed small bowel gas pattern concerning for ileus versus developing SBO, subcutaneous emphysema on the right side abdominal wall may be normal postsurgical changes. It would be concerning for possible gas-forming infection if the swelling or edema increases in this area. -general surgery consult with plans for small-bowel series on 09/16 if still no bowel function -NGT to LIS -NPO for bowel rest -encourage ambulation -no concern for acute abdomen on exam at this time -monitor I&O -monitor electrolytes, CBC -LR at 125 started on 09/15 -hydromorphone p.r.n. -Zofran p.r.n. -some concern but low probability of bowel perforation. Prophylactic Zosyn q.6 hours. -discontinue vanc and metronidazole (2) Prostate cancer: Code(s): C61 - Malignant neoplasm of prostate Status: Chronic Assessment and Plan: Status post robotic assisted radical prostatectomy with bilateral pelvic lymphadenectomy, extensive lysis of adhesions on 09/11/25. Lymph nodes and surgical margins negative for metastatic adenocarcinoma per pathology report. -urology consult -postop Olivera in place (3) Superficial bruising of abdominal wall: Qualifiers: Encounter type: initial encounter Qualified Code(s): S30.11XA - Contusion of abdominal wall, initial encounter Code(s): S30.11XA - Contusion of abdominal wall, initial encounter Status: Acute Assessment and Plan: Related to recent robotic assisted radical prostatectomy requiring lysis of extensive abdominal adhesions. -holding anticoagulation -low concern for active bleeding -monitor hemoglobin, hematocrit (4) Hyperlipidemia: Qualifiers: Hyperlipidemia type: unspecified Qualified Code(s): E78.5 - Hyperlipidemia, unspecified Code(s): E78.5 - Hyperlipidemia, unspecified Status: Chronic Assessment and Plan: Continue atorvastatin Plan Diet: NPO GI prophylaxis: DVT prophylaxis: SCDs lines/drains: PIV, [place], NGT Fluids: 1 L LR-LR at 125 started on 09/15 Code status: Full Subjective Date/time seen: 09/16/25 08:49 Interval history: Patient underwent upper GI series. Passing flatus. Review of Systems Review of Systems: All systems reviewed & are unremarkable except as noted in HPI and below Exam Narrative: GENERAL: non-toxic appearing, in no acute distress. HEAD: Normocephalic, atraumatic. EYES: PERRLA. Conjunctivae clear. NOSE: NGT in place THROAT: Pharynx clear, no exudate. NECK: Trachea midline. No adenopathy, no masses. RESPIRATORY: Airway patent, respirations nonlabored. CTA. CARDIOVASCULAR: Regular rate and rhythm without murmurs, rubs, or gallops. BREASTS: Defer GASTROINTESTINAL: Abdomen rounded and tender to palpation with minimal bowel sounds heard throughout. Extensive ecchymosis to right abdomen extending to hip. Crepitus to right side abdominal wall. Surgical site approximated with surgical glue intact. Small umbilical hernia reducible. Right inguinal hernia with pain but reducible. NGT output bilious GENITOURINARY: Olivera in place with tea-colored urine. MUSCULOSKELETAL: Moves all extremities. No gross deformities. No calf tenderness. SKIN: Warm, dry, normal color. NEURO: A&O X4. Speech clear PSYCHIATRIC: Normal interaction Objective Data Vital Signs Vital Signs: Vital Signs - 24 hr 09/15/25 09:31 09/15/25 11:37 09/15/25 11:38 Temperature Pulse Rate 86 74 72 Respiratory Rate 20 20 22 H Blood Pressure 136/70 119/68 119/68 Pulse Oximetry 94 98 97 Oxygen Delivery 09/15/25 13:15 09/15/25 13:39 09/15/25 16:00 Temperature 98 F Pulse Rate 73 72 Respiratory Rate 18 Blood Pressure 138/54 L Pulse Oximetry 100 Oxygen Delivery Room Air 09/15/25 16:00 09/15/25 18:00 09/15/25 20:00 Temperature 97.7 F 98.5 F Pulse Rate 76 75 79 Respiratory Rate 18 16 Blood Pressure 115/58 L 130/56 L Pulse Oximetry 97 99 Oxygen Delivery 09/15/25 20:00 09/15/25 20:00 09/15/25 22:00 Temperature Pulse Rate 80 76 Respiratory Rate Blood Pressure Pulse Oximetry Oxygen Delivery Room Air 09/15/25 23:47 09/15/25 23:54 09/16/25 00:00 Temperature 97.9 F Pulse Rate 67 69 Respiratory Rate 18 Blood Pressure 111/58 L Pulse Oximetry 99 Oxygen Delivery Room Air 09/16/25 02:00 09/16/25 03:31 09/16/25 04:00 Temperature 98.2 F Pulse Rate 74 72 Respiratory Rate 16 Blood Pressure 122/54 L Pulse Oximetry 98 Oxygen Delivery Room Air 09/16/25 04:00 09/16/25 06:00 09/16/25 07:33 Temperature 98.4 F Pulse Rate 73 70 74 Respiratory Rate 14 Blood Pressure 124/60 Pulse Oximetry 100 Oxygen Delivery Intake/Output Intake/Output: Intake & Output 09/13/25 09/14/25 09/15/25 09/16/25 23:59 23:59 23:59 23:59 Intake Total 2135.4 975 Output Total 1375 800 Balance 760.4 175 Meds/Results Medications: Active Medications Generic Name Dose Route Start Last Admin Trade Name Freq PRN Reason Stop Dose Admin Atorvastatin Calcium 40 mg 09/16/25 09:00 Atorvastatin 40 Mg Tablet PO DAILY JAMA Ferrous Sulfate 325 mg 09/16/25 09:00 Ferrous Sulfate 325 Mg Tablet BY MOUTH DAILY JAMA Hydromorphone HCl 0.5 mg 09/15/25 11:50 09/15/25 21:34 Hydromorphone Hcl Inj (*Crx) 1 Mg/Ml Syr IV PUSH 0.5 mg Q4H PRN Administration Pain Rated 7-10 Lactated Ringer's 1,000 mls @ 125 mls/hr 09/15/25 11:50 09/16/25 05:07 Lr - Lactated Ringers Iv IV CONT 125 mls/hr .Q8H JAMA Administration Piperacillin Sod/Tazobactam 50 mls @ 100 mls/hr 09/15/25 18:00 09/16/25 05:07 Sod 3.375 gm/ Sodium Chloride IVPB 100 mls/hr Q6HR JAMA Administration Ondansetron HCl 4 mg 09/15/25 11:50 Ondansetron Inj 4 Mg/2 Ml Vial IV PUSH Q4H PRN Nausea Radiology Results: ITS Impressions Chest/Abdomen/Pelvis CTA 09/15/25 10:26 IMPRESSION: 1. Findings consistent with mechanical small bowel obstruction and perforation with pneumoperitoneum noted. There is also moderately extensive emphysematous infiltrative/edematous changes in the extra peritoneal soft tissues. Correlate clinically to exclude gas forming infection and necrotizing fasciitis in the soft tissues. 2. No pulmonary emboli or thoracic aortic aneurysm/dissection. ADDENDUM: 09/15/25 1126 Study discussed with emergency department and surgical staff. Patient recently underwent surgical procedure which would explain pneumoperitoneum. 1. Small bowel gas pattern remains concerning for ileus versus developing small bowel obstruction. 2. Subcutaneous emphysema on the right side may be normal postsurgical changes. If there appears to be increased swelling or edema in association with this emphysema remains concerning for possible gas-forming infection. Abdomen X-Ray 09/15/25 12:10 IMPRESSION: Gastric catheter appears in good position. Extensive subcutaneous emphysema on the right side again noted. Labs Labs: Laboratory Results - last 24 hr 09/15/25 09/15/25 09/15/25 08:51 11:14 11:14 WBC 15.6 H RBC 2.85 L Hgb 9.6 L Hct 27.4 L MCV 96.1 MCH 33.7 MCHC 35.0 RDW 12.4 Plt Count 273 MPV 9.5 Immature Gran % (Auto) 0.4 Neut % (Auto) 62.3 Lymph % (Auto) 30.7 [place] % (Auto) 6.2 Eos % (Auto) 0.1 Baso % (Auto) 0.3 Lymph # (Auto) 4.79 H [place] # (Auto) 1.0 H Eos # (Auto) 0.0 Baso # (Auto) 0.1 Abs Immat Gran (auto) 0.07 H Absolute Neuts (auto) 9.7 H Absolute Nucleated RBC 0.000 Nucleated RBC % 0.0 ESR 117 H PT 13.6 INR 1.0 APTT 24.7 Sodium 129 L Potassium 4.3 Chloride 96 L Carbon Dioxide 28 Anion Gap 5 BUN 18 Creatinine 1.05 1.04 Estim Creat Clear Calc 58 59 Estimated GFR > 60 > 60 Glucose 138 H Lactic Acid 1.6 0.9 Calcium 9.3 Total Bilirubin 2.2 H AST 35 ALT 25 Alkaline Phosphatase 62 C-Reactive Protein Cancelled 2.6 H Total Protein 6.1 L Albumin 3.5 Lipase 119 Procalcitonin 0.1 Urine Color Dark yellow Urine Appearance Cloudy H Urine pH 7.0 Ur Specific [place] 1.024 Urine Protein 2+ H Urine Glucose (UA) Negative Urine Ketones 2+ H Ur Blood (Man) 3+ H Urine Nitrate Negative Urine Bilirubin 1+ H Urine Urobilinogen 2.0 H Leukocyte Esterase Rfl 1+ H Urine RBC >100 H Urine WBC 6-10 H Ur Squamous Epith Cells None seen Calcium Oxalate Crystal Present Urine Bacteria None seen Urine Casts 3-5 Nasal MRSA (PCR) Not detected 09/16/25 03:26 WBC 12.2 H RBC 2.61 L Hgb 8.6 L Hct 26.1 L MCV 100.0 MCH 33.0 MCHC 33.0 RDW 13.1 Plt Count 245 MPV 9.5 Immature Gran % (Auto) 0.3 Neut % (Auto) 39.2 L Lymph % (Auto) 51.8 H [place] % (Auto) 6.5 Eos % (Auto) 1.8 Baso % (Auto) 0.4 Lymph # (Auto) 6.31 H [place] # (Auto) 0.8 H Eos # (Auto) 0.2 Baso # (Auto) 0.1 Abs Immat Gran (auto) 0.04 H Absolute Neuts (auto) 4.8 Absolute Nucleated RBC 0.000 Nucleated RBC % 0.0 ESR PT INR APTT Sodium 133 L Potassium 3.8 Chloride 98 Carbon Dioxide 31 H Anion Gap 4 BUN 20 Creatinine 1.07 Estim Creat Clear Calc 57 Estimated GFR > 60 Glucose 87 Lactic Acid Calcium 8.4 Total Bilirubin AST ALT Alkaline Phosphatase C-Reactive Protein Total Protein Albumin Lipase Procalcitonin Urine Color Urine Appearance Urine pH Ur Specific [place] Urine Protein Urine Glucose (UA) Urine Ketones Ur Blood (Man) Urine Nitrate Urine Bilirubin Urine Urobilinogen Leukocyte Esterase Rfl Urine RBC Urine WBC Ur Squamous Epith Cells Calcium Oxalate Crystal Urine Bacteria Urine Casts Nasal MRSA (PCR) Quality VTE Prophylaxis VTE prophylaxis: mechanical ordered Hospitalist MIPS Advance Care Plan I have confirmed that the patient's Advanced Care Plan is present, code status is documented, or surrogate decision maker is listed in patient medical record.: Yes Medication Reconciliation I have utilized all available resources to obtain, update and review the patients current medications (includes all prescriptions, OTC, herbals, cannabis, and nutritional supplements).: Yes
--- NOTE | 2025-09-16 12:19 | PC.NURSE ---
[id number] in Xray department for procedure- returned to room NG clamped per procedure orders
[2025-09-16] MEDS: ONDANSETRON INJ 4 MG/2 ML VIAL IV PUSH (12:59)
[2025-09-16] MEDS: HYDROmorphone HCL INJ (*CRX) 1 MG/ML SYR 0.5 MG IV PUSH ×2 (13:12→16:50)
--- NOTE | 2025-09-16 14:02 | P.PNGS_ITS ---
Progress Note: A&P Assessment and Plan (1) Small bowel obstruction: Code(s): K56.609 - Unspecified intestinal obstruction, unspecified as to partial versus complete obstruction Status: Acute Assessment and Plan: NG tube draining significant amount of dark brown fluid. Patient still complains of some mild nausea. No bowel movement yet. Only a very small amount of flatus. Small bowel series ordered. 1.5 hours in. Still pending radiologist read. Will treat accordingly pending results. (2) Right inguinal hernia: Code(s): K40.90 - Unilateral inguinal hernia, without obstruction or gangrene, not specified as recurrent Status: Acute Assessment and Plan: (3) Superficial bruising of abdominal wall: Qualifiers: Encounter type: initial encounter Qualified Code(s): S30.11XA - Contusion of abdominal wall, initial encounter Code(s): S30.11XA - Contusion of abdominal wall, initial encounter Status: Acute Assessment and Plan: Significant bruising from surgery throughout abdomen and spreading to groin and back. secondary to recent surgery, will continue to follow, hold all anticoagulation at this point Plan Discussed patient's case and plan of care with Dr. Campbell. Subjective Subjective Date/Time Seen: 09/16/25 14:02 Patient reports: still having pain, flatus (minimal), no bowel movement and afebrile Interval history: Patient doing well today, but still complains of lower abdominal pain. NG tube with 900 mL dark brown fluid overnight and another 550 so far today. Mild nausea noted. Exam Const: General: comfortable and no acute distress Resp: Effort & Inspection: normal respiratory effort Cardio: Rate: regular rate GI: Inspection: distended GI Palp: Yes Soft to palpation, Yes Tenderness to palpation present (GI) (mild diffuse tenderness) and No Guarding due to palpation present (GI) Auscultation: abnormal bowel sounds (hypoactive) Other: Extensive ecchymosis throughout lower abdomen into groin area and extending all the way throughout his back. Seems to be some blistering to certain areas of skin. Left sided abdominal incision with some drainage of serosanguineous drainage. Not fully dehisced. Skin: General skin exam: ecchymosis Extrem: General: normal to inspection Psych: Mental Status: mental status grossly normal Objective Data Vital Signs Vital Signs: Vital Signs - 24 hr 09/15/25 16:00 09/15/25 16:00 09/15/25 18:00 Temperature 97.7 F Pulse Rate 72 76 75 Respiratory Rate 18 Blood Pressure 115/58 L Pulse Oximetry 97 Oxygen Delivery 09/15/25 20:00 09/15/25 20:00 09/15/25 20:00 Temperature 98.5 F Pulse Rate 79 80 Respiratory Rate 16 Blood Pressure 130/56 L Pulse Oximetry 99 Oxygen Delivery Room Air 09/15/25 22:00 09/15/25 23:47 09/15/25 23:54 Temperature 97.9 F Pulse Rate 76 67 Respiratory Rate 18 Blood Pressure 111/58 L Pulse Oximetry 99 Oxygen Delivery Room Air 09/16/25 00:00 09/16/25 02:00 09/16/25 03:31 Temperature Pulse Rate 69 74 Respiratory Rate Blood Pressure Pulse Oximetry Oxygen Delivery Room Air 09/16/25 04:00 09/16/25 04:00 09/16/25 06:00 Temperature 98.2 F Pulse Rate 72 73 70 Respiratory Rate 16 Blood Pressure 122/54 L Pulse Oximetry 98 Oxygen Delivery 09/16/25 07:33 09/16/25 08:30 09/16/25 08:30 Temperature 98.4 F Pulse Rate 74 78 Respiratory Rate 14 Blood Pressure 124/60 Pulse Oximetry 100 Oxygen Delivery Room Air 09/16/25 10:00 09/16/25 11:55 09/16/25 12:00 Temperature 98.2 F Pulse Rate 86 76 Respiratory Rate 22 H Blood Pressure 135/71 Pulse Oximetry 100 Oxygen Delivery Room Air 09/16/25 12:00 09/16/25 13:00 Temperature Pulse Rate 76 88 Respiratory Rate Blood Pressure 153/76 H Pulse Oximetry Oxygen Delivery Intake/Output Intake/Output: Intake & Output 09/13/25 09/14/25 09/15/25 09/16/25 23:59 23:59 23:59 23:59 Intake Total 2135.4 1025 Output Total 1375 800 Balance 760.4 225 Meds/Results Medications: Active Medications Generic Name Dose Route Start Last Admin Trade Name Freq PRN Reason Stop Dose Admin Atorvastatin Calcium 40 mg 09/16/25 09:00 09/16/25 12:11 Atorvastatin 40 Mg Tablet PO Not Given DAILY JAMA Ferrous Sulfate 325 mg 09/16/25 09:00 09/16/25 12:11 Ferrous Sulfate 325 Mg Tablet BY MOUTH Not Given DAILY JAMA Hydromorphone HCl 0.5 mg 09/15/25 11:50 09/16/25 13:12 Hydromorphone Hcl Inj (*Crx) 1 Mg/Ml Syr IV PUSH 0.5 mg Q4H PRN Administration Pain Rated 7-10 Lactated Ringer's 1,000 mls @ 125 mls/hr 09/15/25 11:50 09/16/25 05:07 Lr - Lactated Ringers Iv IV CONT 125 mls/hr .Q8H JAMA Administration Piperacillin Sod/Tazobactam 50 mls @ 100 mls/hr 09/15/25 18:00 09/16/25 12:59 Sod 3.375 gm/ Sodium Chloride IVPB 100 mls/hr Q6HR JAMA Administration Ondansetron HCl 4 mg 09/15/25 11:50 09/16/25 12:59 Ondansetron Inj 4 Mg/2 Ml Vial IV PUSH 4 mg Q4H PRN Administration Nausea Radiology Results: ITS Impressions Chest/Abdomen/Pelvis CTA 09/15/25 10:26 IMPRESSION: 1. Findings consistent with mechanical small bowel obstruction and perforation with pneumoperitoneum noted. There is also moderately extensive emphysematous infiltrative/edematous changes in the extra peritoneal soft tissues. Correlate clinically to exclude gas forming infection and necrotizing fasciitis in the soft tissues. 2. No pulmonary emboli or thoracic aortic aneurysm/dissection. ADDENDUM: 09/15/25 1126 Study discussed with emergency department and surgical staff. Patient recently underwent surgical procedure which would explain pneumoperitoneum. 1. Small bowel gas pattern remains concerning for ileus versus developing small bowel obstruction. 2. Subcutaneous emphysema on the right side may be normal postsurgical changes. If there appears to be increased swelling or edema in association with this emphysema remains concerning for possible gas-forming infection. Abdomen X-Ray 09/15/25 12:10 IMPRESSION: Gastric catheter appears in good position. Extensive subcutaneous emphysema on the right side again noted. Labs Labs: Laboratory Results - last 24 hr 09/16/25 03:26 WBC 12.2 H RBC 2.61 L Hgb 8.6 L Hct 26.1 L MCV 100.0 MCH 33.0 MCHC 33.0 RDW 13.1 Plt Count 245 MPV 9.5 Immature Gran % (Auto) 0.3 Neut % (Auto) 39.2 L Lymph % (Auto) 51.8 H [place] % (Auto) 6.5 Eos % (Auto) 1.8 Baso % (Auto) 0.4 Lymph # (Auto) 6.31 H [place] # (Auto) 0.8 H Eos # (Auto) 0.2 Baso # (Auto) 0.1 Abs Immat Gran (auto) 0.04 H Absolute Neuts (auto) 4.8 Absolute Nucleated RBC 0.000 Nucleated RBC % 0.0 Sodium 133 L Potassium 3.8 Chloride 98 Carbon Dioxide 31 H Anion Gap 4 BUN 20 Creatinine 1.07 Estim Creat Clear Calc 57 Estimated GFR > 60 Glucose 87 Calcium 8.4
[2025-09-17] VITALS (15 sets, daily range): BP systolic 127–154; BP diastolic 61–65; PULSE 73–94; RESP 18; TEMP 36.4–36.7; O2SAT 93–100
[2025-09-17] MEDS: HYDROmorphone HCL INJ (*CRX) 1 MG/ML SYR 0.5 MG IV PUSH ×3 (03:13→22:16)
[2025-09-17] MEDS: ONDANSETRON INJ 4 MG/2 ML VIAL IV PUSH (03:16)
[2025-09-17 04:48] LABS: Estimated CRCL calculation 67 ml/min; Estimated Glomerular Filt Rate > 60
[2025-09-17] MEDS: PIPERACILLIN/TAZOBACTAM SOD 3.375 GM in SODIUM CHLORIDE 0.9% IV 50 ML 100 ML IVPB ×3 (05:18→17:29)
[2025-09-17] MEDS: LACTATED RINGERS 1,000 ML 125 ML IV CONT ×3 (05:18→20:32)
--- NOTE | 2025-09-17 08:41 | P.PNIM_ITS ---
Progress Note: A&P Assessment and Plan (1) Small bowel obstruction: Code(s): K56.609 - Unspecified intestinal obstruction, unspecified as to partial versus complete obstruction Status: Acute Assessment and Plan: Developing SBO versus postop ileus (more likely postop ileus). Increasing abdominal pain and swelling since 09/13. CTA chest abdomen pelvis revealed small bowel gas pattern concerning for ileus versus developing SBO, subcutaneous emphysema on the right side abdominal wall may be normal postsurgical changes. It would be concerning for possible gas-forming infection if the swelling or edema increases in this area. -general surgery consult with plans for small-bowel series on 09/16 if still no bowel function -NGT to LIS -start clear liquid if NG out -encourage ambulation -no concern for acute abdomen on exam at this time -monitor I&O -monitor electrolytes, CBC -LR at 125 started on 09/15 -hydromorphone p.r.n. -Zofran p.r.n. -some concern but low probability of bowel perforation. Prophylactic Zosyn q.6 hours. -discontinue vanc and metronidazole (2) Prostate cancer: Code(s): C61 - Malignant neoplasm of prostate Status: Chronic Assessment and Plan: Status post robotic assisted radical prostatectomy with bilateral pelvic lymphad enectomy, extensive lysis of adhesions on 09/11/25. Lymph nodes and surgical margins negative for metastatic adenocarcinoma per pathology report. -urology consult -postop Olivera in place (3) Superficial bruising of abdominal wall: Qualifiers: Encounter type: initial encounter Qualified Code(s): S30.11XA - Contusion of abdominal wall, initial encounter Code(s): S30.11XA - Contusion of abdominal wall, initial encounter Status: Acute Assessment and Plan: Related to recent robotic assisted radical prostatectomy requiring lysis of extensive abdominal adhesions. -holding anticoagulation -low concern for active bleeding -monitor hemoglobin, hematocrit (4) Hyperlipidemia: Qualifiers: Hyperlipidemia type: unspecified Qualified Code(s): E78.5 - Hyperlipidemia, unspecified Code(s): E78.5 - Hyperlipidemia, unspecified Status: Chronic Assessment and Plan: Continue atorvastatin Plan Diet: NPO GI prophylaxis: DVT prophylaxis: SCDs lines/drains: PIV, Olivera, NGT Fluids: 1 L LR-LR at 125 started on 09/15 Code status: Full Subjective Date/time seen: 09/17/25 08:41 Interval history: Patient underwent small bowel series yesterday which shows concerning for mechanical small bowel obstruction. KUB ordered this morning which shows either partial small-bowel obstruction or ileus. Had a very small bowel movement. Patient wants conservative management Review of Systems Review of Systems: All systems reviewed & are unremarkable except as noted in HPI and below Exam Narrative: GENERAL: non-toxic appearing, in no acute distress. HEAD: Normocephalic, atraumatic. EYES: PERRLA. Conjunctivae clear. NOSE: NGT in place THROAT: Pharynx clear, no exudate. NECK: Trachea midline. No adenopathy, no masses. RESPIRATORY: Airway patent, respirations nonlabored. CTA. CARDIOVASCULAR: Regular rate and rhythm without murmurs, rubs, or gallops. BREASTS: Defer GASTROINTESTINAL: Abdomen rounded and tender to palpation with minimal bowel sounds heard throughout. Extensive ecchymosis to right abdomen extending to hip. Crepitus to right side abdominal wall. Surgical site approximated with surgical glue intact. Small umbilical hernia reducible. Right inguinal hernia with pain but reducible. NGT output bilious GENITOURINARY: Olivera in place with tea-colored urine. MUSCULOSKELETAL: Moves all extremities. No gross deformities. No calf tenderness. SKIN: Warm, dry, normal color. NEURO: A&O X4. Speech clear PSYCHIATRIC: Normal interaction Objective Data Vital Signs Vital Signs: Vital Signs - 24 hr 09/16/25 10:00 09/16/25 11:55 09/16/25 12:00 Temperature 98.2 F Pulse Rate 86 76 Respiratory Rate 22 H Blood Pressure 135/71 Pulse Oximetry 100 Oxygen Delivery Room Air 09/16/25 12:00 09/16/25 13:00 09/16/25 14:00 Temperature Pulse Rate 76 88 86 Respiratory Rate Blood Pressure 153/76 H Pulse Oximetry Oxygen Delivery 09/16/25 16:00 09/16/25 16:00 09/16/25 16:00 Temperature 97.3 F L Pulse Rate 85 88 Respiratory Rate 18 Blood Pressure 123/68 Pulse Oximetry 100 Oxygen Delivery Room Air 09/16/25 18:00 09/16/25 20:00 09/16/25 20:00 Temperature 97.6 F Pulse Rate 82 82 Respiratory Rate 18 Blood Pressure 120/62 Pulse Oximetry 100 Oxygen Delivery Room Air 09/16/25 20:00 09/16/25 21:57 09/16/25 23:05 Temperature Pulse Rate 82 84 Respiratory Rate Blood Pressure Pulse Oximetry Oxygen Delivery Room Air 09/17/25 00:00 09/17/25 02:00 09/17/25 03:56 Temperature 97.5 F L Pulse Rate 81 80 73 Respiratory Rate 18 Blood Pressure 130/64 Pulse Oximetry 100 Oxygen Delivery 09/17/25 04:00 09/17/25 04:00 09/17/25 06:00 Temperature Pulse Rate 80 83 Respiratory Rate Blood Pressure Pulse Oximetry Oxygen Delivery Room Air 09/17/25 07:05 09/17/25 08:00 Temperature 98 F Pulse Rate 76 Respiratory Rate 18 Blood Pressure 127/61 Pulse Oximetry 93 99 Oxygen Delivery Room Air Intake/Output Intake/Output: Intake & Output 09/14/25 09/15/25 09/16/25 09/17/25 23:59 23:59 23:59 23:59 Intake Total 2135.4 3006.3 985.4 Output Total 1375 3125 950 Balance 760.4 -118.7 35.4 Meds/Results Medications: Active Medications Generic Name Dose Route Start Last Admin Trade Name Freq PRN Reason Stop Dose Admin Atorvastatin Calcium 40 mg 09/16/25 09:00 09/16/25 12:11 Atorvastatin 40 Mg Tablet PO Not Given DAILY JAMA Ferrous Sulfate 325 mg 09/16/25 09:00 09/16/25 12:11 Ferrous Sulfate 325 Mg Tablet BY MOUTH Not Given DAILY JAMA Hydromorphone HCl 0.5 mg 09/15/25 11:50 09/17/25 03:13 Hydromorphone Hcl Inj (*Crx) 1 Mg/Ml Syr IV PUSH 0.5 mg Q4H PRN Administration Pain Rated 7-10 Lactated Ringer's 1,000 mls @ 125 mls/hr 09/15/25 11:50 09/17/25 05:18 Lr - Lactated Ringers Iv IV CONT 125 mls/hr .Q8H JAMA Administration Piperacillin Sod/Tazobactam 50 mls @ 100 mls/hr 09/15/25 18:00 09/17/25 05:18 Sod 3.375 gm/ Sodium Chloride IVPB 100 mls/hr Q6HR JAMA Administration Ondansetron HCl 4 mg 09/15/25 11:50 09/17/25 03:16 Ondansetron Inj 4 Mg/2 Ml Vial IV PUSH 4 mg Q4H PRN Administration Nausea Radiology Results: ITS Impressions Chest/Abdomen/Pelvis CTA 09/15/25 10:26 IMPRESSION: 1. Findings consistent with mechanical small bowel obstruction and perforation with pneumoperitoneum noted. There is also moderately extensive emphysematous infiltrative/edematous changes in the extra peritoneal soft tissues. Correlate clinically to exclude gas forming infection and necrotizing fasciitis in the soft tissues. 2. No pulmonary emboli or thoracic aortic aneurysm/dissection. ADDENDUM: 09/15/25 1126 Study discussed with emergency department and surgical staff. Patient recently underwent surgical procedure which would explain pneumoperitoneum. 1. Small bowel gas pattern remains concerning for ileus versus developing small bowel obstruction. 2. Subcutaneous emphysema on the right side may be normal postsurgical changes. If there appears to be increased swelling or edema in association with this emphysema remains concerning for possible gas-forming infection. Abdomen X-Ray 09/15/25 12:10 IMPRESSION: Gastric catheter appears in good position. Extensive subcutaneous emphysema on the right side again noted. Small Bowel X-Ray 09/16/25 14:58 IMPRESSION: Findings are concerning for mechanical small bowel obstruction. Correlation with follow-up KUB later this evening or tomorrow morning recommended if patient managed nonoperatively. Labs Labs: Laboratory Results - last 24 hr 09/17/25 03:52 Creatinine 0.90 Estim Creat Clear Calc 67 Estimated GFR > 60 Quality VTE Prophylaxis VTE prophylaxis: mechanical ordered Hospitalist [facility] Advance Care Plan I have confirmed that the patient's Advanced Care Plan is present, code status is documented, or surrogate decision maker is listed in patient medical record.: Yes Medication Reconciliation I have utilized all available resources to obtain, update and review the patients current medications (includes all prescriptions, OTC, herbals, cannabis, and nutritional supplements).: Yes
[2025-09-17 08:53] LABS: Hematocrit 26.6 % (42.0-52.0); Hemoglobin 8.6 g/dL (14.0-18.0); Mean Corpuscular HGB Conc 32.3 g/dl (32-36); Mean Corpuscular Hemoglobin 33.2 pg (26-34); Mean Corpuscular Volume 102.7 fl (80-100); Platelet Count Result 294 k/mm3 (150-375); Red Blood Count 2.59 M/mm3 (4.6-6.20); White Blood Count 11.4 K/mm3 (4.5-10.0)
[2025-09-17 08:59] LABS: Alanine Aminotransferase 22 U/L (6-50); Albumin Level 3.3 g/dL (3.5-5.1); Alkaline Phosphatase 54 U/L (38-126); Anion Gap 6 mmol/L (4-12); Aspartate Amino Transferase 42 U/L (17-59); Bilirubin,Total 1.7 mg/dL (0.2-1.3); Blood Urea Nitrogen 25 mg/dL (9-20); Calcium 8.4 mg/dL (8.4-10.2); Carbon Dioxide 29 mmol/L (22-30); Chloride 100 mmol/L (98-107); Glucose 85 mg/dL (65-110); Potassium 3.9 mmol/L (3.4-5.0); Sodium 135 mmol/L (137-145); Total Protein 5.8 g/dL (6.3-8.2)
[2025-09-17] MEDS: ATORVASTATIN 40 MG TABLET PO (09:36)
[2025-09-17] MEDS: FERROUS SULFATE 325 MG TABLET BY MOUTH (09:36)
--- NOTE | 2025-09-17 12:07 | P.PNGS_ITS ---
Progress Note: A&P Assessment and Plan (1) Small bowel obstruction: Code(s): K56.609 - Unspecified intestinal obstruction, unspecified as to partial versus complete obstruction Status: Acute Assessment and Plan: * Patient experienced nausea and vomiting during small bowel series yesterday. Results concerning for mechanical small bowel obstruction. KUB this morning demonstrated findings consistent with either partial small bowel obstruction or ileus. Contrast appears to be present in colon. After I left the patient's room this morning, I was informed that he did have a bowel movement after walking the halls. NG tube still draining significant amount of bilious fluid. Patient denies any nausea or vomiting this morning. He states that his pain is better and feels more related to the surgery. We will consider clamping trial versus clear liquids. (2) Right inguinal hernia: Code(s): K40.90 - Unilateral inguinal hernia, without obstruction or gangrene, not specified as recurrent Status: Acute Assessment and Plan: (3) Superficial bruising of abdominal wall: Qualifiers: Encounter type: initial encounter Qualified Code(s): S30.11XA - Contusion of abdominal wall, initial encounter Code(s): S30.11XA - Contusion of abdominal wall, initial encounter Status: Acute Assessment and Plan: Significant bruising from surgery throughout abdomen and spreading to groin and back. secondary to recent surgery, will continue to follow, hold all anticoagulation at this point Plan Discussed patient's case and plan of care with Dr. Campbell. Subjective Subjective Date/Time Seen: 09/17/25 12:07 Patient reports: flatus, bowel movement and afebrile Interval history: Patient was unable to tolerate small bowel series yesterday, as he began to complain of nausea and discomfort at 150 mL. Follow up overhead images demonstrated passage of contrast into the mid to distal small bowel with no progression at the 4 hour michelle. Findings concerning for mechanical small bowel obstruction. Patient did end up having 1 episode of emesis after this. NG was placed back to suction in 2400 mL of fluid was collected yesterday. 700 mL today. This morning, patient states that he feels this pain is more so due to the surgery rather than a small bowel obstruction. Patient denied any bowel movement this morning, but later into the morning I was informed that he did have a bowel movement after walking the halls. Exam Const: General: comfortable GI: Inspection: abdominal wall ecchymosis, distended and incision Auscultation: abnormal bowel sounds (hypoactive) Other: Extensive ecchymosis throughout lower abdomen into groin area and extending all the way throughout his back. Seems to be some blistering to certain areas of skin. Left sided abdominal incision with quite a bit of serosanguineous drainage. Incision is not fully dehisced. Objective Data Vital Signs Vital Signs: Vital Signs - 24 hr 09/16/25 13:00 09/16/25 14:00 09/16/25 16:00 Temperature 97.3 F L Pulse Rate 88 86 85 Respiratory Rate 18 Blood Pressure 153/76 H 123/68 Pulse Oximetry 100 Oxygen Delivery 09/16/25 16:00 09/16/25 16:00 09/16/25 18:00 Temperature Pulse Rate 88 82 Respiratory Rate Blood Pressure Pulse Oximetry Oxygen Delivery Room Air 09/16/25 20:00 09/16/25 20:00 09/16/25 20:00 Temperature 97.6 F Pulse Rate 82 82 Respiratory Rate 18 Blood Pressure 120/62 Pulse Oximetry 100 Oxygen Delivery Room Air 09/16/25 21:57 09/16/25 23:05 09/17/25 00:00 Temperature Pulse Rate 84 81 Respiratory Rate Blood Pressure Pulse Oximetry Oxygen Delivery Room Air 09/17/25 02:00 09/17/25 03:56 09/17/25 04:00 Temperature 97.5 F L Pulse Rate 80 73 Respiratory Rate 18 Blood Pressure 130/64 Pulse Oximetry 100 Oxygen Delivery Room Air 09/17/25 04:00 09/17/25 06:00 09/17/25 07:05 Temperature Pulse Rate 80 83 Respiratory Rate Blood Pressure Pulse Oximetry 93 Oxygen Delivery Room Air 09/17/25 08:00 09/17/25 08:00 09/17/25 10:00 Temperature 98 F Pulse Rate 76 78 90 Respiratory Rate 18 Blood Pressure 127/61 Pulse Oximetry 99 Oxygen Delivery 09/17/25 11:46 Temperature 98 F Pulse Rate 78 Respiratory Rate 18 Blood Pressure 131/63 Pulse Oximetry 97 Oxygen Delivery Intake/Output Intake/Output: Intake & Output 09/14/25 09/15/25 09/16/25 09/17/25 23:59 23:59 23:59 23:59 Intake Total 2135.4 3006.3 1035.4 Output Total 1375 3125 950 Balance 760.4 -118.7 85.4 Meds/Results Medications: Active Medications Generic Name Dose Route Start Last Admin Trade Name Freq PRN Reason Stop Dose Admin Atorvastatin Calcium 40 mg 09/16/25 09:00 09/17/25 09:36 Atorvastatin 40 Mg Tablet PO 40 mg DAILY JAMA Administration Ferrous Sulfate 325 mg 09/16/25 09:00 09/17/25 09:36 Ferrous Sulfate 325 Mg Tablet BY MOUTH 325 mg DAILY JAMA Administration Hydromorphone HCl 0.5 mg 09/15/25 11:50 09/17/25 09:51 Hydromorphone Hcl Inj (*Crx) 1 Mg/Ml Syr IV PUSH 0.5 mg Q4H PRN Administration Pain Rated 7-10 Lactated Ringer's 1,000 mls @ 125 mls/hr 09/15/25 11:50 09/17/25 05:18 Lr - Lactated Ringers Iv IV CONT 125 mls/hr .Q8H JAMA Administration Piperacillin Sod/Tazobactam 50 mls @ 100 mls/hr 09/15/25 18:00 09/17/25 11:51 Sod 3.375 gm/ Sodium Chloride IVPB 100 mls/hr Q6HR JAMA Administration Ondansetron HCl 4 mg 09/15/25 11:50 09/17/25 03:16 Ondansetron Inj 4 Mg/2 Ml Vial IV PUSH 4 mg Q4H PRN Administration Nausea Radiology Results: ITS Impressions Chest/Abdomen/Pelvis CTA 09/15/25 10:26 IMPRESSION: 1. Findings consistent with mechanical small bowel obstruction and perforation with pneumoperitoneum noted. There is also moderately extensive emphysematous infiltrative/edematous changes in the extra peritoneal soft tissues. Correlate clinically to exclude gas forming infection and necrotizing fasciitis in the soft tissues. 2. No pulmonary emboli or thoracic aortic aneurysm/dissection. ADDENDUM: 09/15/25 1126 Study discussed with emergency department and surgical staff. Patient recently underwent surgical procedure which would explain pneumoperitoneum. 1. Small bowel gas pattern remains concerning for ileus versus developing small bowel obstruction. 2. Subcutaneous emphysema on the right side may be normal postsurgical changes. If there appears to be increased swelling or edema in association with this emphysema remains concerning for possible gas-forming infection. Small Bowel X-Ray 09/16/25 14:58 IMPRESSION: Findings are concerning for mechanical small bowel obstruction. Correlation with follow-up KUB later this evening or tomorrow morning recommended if patient managed nonoperatively. Abdomen X-Ray 09/17/25 09:01 IMPRESSION: Findings are consistent with either partial small bowel obstruction or ileus. Labs Labs: Laboratory Results - last 24 hr 09/17/25 09/17/25 03:51 03:52 WBC 11.4 H RBC 2.59 L Hgb 8.6 L Hct 26.6 L MCV 102.7 H MCH 33.2 MCHC 32.3 RDW 13.3 Plt Count 294 MPV 9.5 Sodium 135 L Potassium 3.9 Chloride 100 Carbon Dioxide 29 Anion Gap 6 BUN 25 H Creatinine 0.90 Estim Creat Clear Calc 67 Estimated GFR > 60 Glucose 85 Calcium 8.4 Total Bilirubin 1.7 H AST 42 ALT 22 Alkaline Phosphatase 54 Total Protein 5.8 L Albumin 3.3 L
--- NOTE | 2025-09-17 19:31 | P.PNUR_ITS ---
Subjective Subjective Date/Time Seen: 09/17/25 19:31 Interval history: Saw pt. early this morning Objective Data Vital Signs Vital Signs: Vital Signs - 24 hr 09/16/25 20:00 09/16/25 20:00 09/16/25 20:00 Temperature 97.6 F Pulse Rate 82 82 Respiratory Rate 18 Blood Pressure 120/62 Pulse Oximetry 100 Oxygen Delivery Room Air 09/16/25 21:57 09/16/25 23:05 09/17/25 00:00 Temperature Pulse Rate 84 81 Respiratory Rate Blood Pressure Pulse Oximetry Oxygen Delivery Room Air 09/17/25 02:00 09/17/25 03:56 09/17/25 04:00 Temperature 97.5 F L Pulse Rate 80 73 Respiratory Rate 18 Blood Pressure 130/64 Pulse Oximetry 100 Oxygen Delivery Room Air 09/17/25 04:00 09/17/25 06:00 09/17/25 07:05 Temperature Pulse Rate 80 83 Respiratory Rate Blood Pressure Pulse Oximetry 93 Oxygen Delivery Room Air 09/17/25 08:00 09/17/25 08:00 09/17/25 08:00 Temperature 98 F Pulse Rate 76 78 Respiratory Rate 18 Blood Pressure 127/61 Pulse Oximetry 99 Oxygen Delivery Room Air 09/17/25 10:00 09/17/25 11:46 09/17/25 12:00 Temperature 98 F Pulse Rate 90 78 76 Respiratory Rate 18 Blood Pressure 131/63 Pulse Oximetry 97 Oxygen Delivery 09/17/25 14:00 09/17/25 16:00 09/17/25 16:00 Temperature 98.1 F Pulse Rate 86 83 81 Respiratory Rate 18 Blood Pressure 140/65 Pulse Oximetry 98 Oxygen Delivery 09/17/25 18:00 Temperature Pulse Rate 94 Respiratory Rate Blood Pressure Pulse Oximetry Oxygen Delivery Intake/Output Intake/Output: Intake & Output 09/14/25 09/15/25 09/16/25 09/17/25 23:59 23:59 23:59 23:59 Intake Total 2135.4 3006.3 2120.8 Output Total 1375 3125 1775 Balance 760.4 -118.7 345.8 Meds/Results Medications: Active Medications Generic Name Dose Route Start Last Admin Trade Name Freq PRN Reason Stop Dose Admin Atorvastatin Calcium 40 mg 09/16/25 09:00 09/17/25 09:36 Atorvastatin 40 Mg Tablet PO 40 mg DAILY JAMA Administration Ferrous Sulfate 325 mg 09/16/25 09:00 09/17/25 09:36 Ferrous Sulfate 325 Mg Tablet BY MOUTH 325 mg DAILY JAMA Administration Hydromorphone HCl 0.5 mg 09/15/25 11:50 09/17/25 09:51 Hydromorphone Hcl Inj (*Crx) 1 Mg/Ml Syr IV PUSH 0.5 mg Q4H PRN Administration Pain Rated 7-10 Lactated Ringer's 1,000 mls @ 125 mls/hr 09/15/25 11:50 09/17/25 13:11 Lr - Lactated Ringers Iv IV CONT 125 mls/hr .Q8H JAMA Administration Piperacillin Sod/Tazobactam 50 mls @ 100 mls/hr 09/15/25 18:00 09/17/25 18:18 Sod 3.375 gm/ Sodium Chloride IVPB Infused Q6HR JAMA Infusion Ondansetron HCl 4 mg 09/15/25 11:50 09/17/25 03:16 Ondansetron Inj 4 Mg/2 Ml Vial IV PUSH 4 mg Q4H PRN Administration Nausea Radiology Results: ITS Impressions Chest/Abdomen/Pelvis CTA 09/15/25 10:26 IMPRESSION: 1. Findings consistent with mechanical small bowel obstruction and perforation with pneumoperitoneum noted. There is also moderately extensive emphysematous infiltrative/edematous changes in the extra peritoneal soft tissues. Correlate clinically to exclude gas forming infection and necrotizing fasciitis in the soft tissues. 2. No pulmonary emboli or thoracic aortic aneurysm/dissection. ADDENDUM: 09/15/25 1126 Study discussed with emergency department and surgical staff. Patient recently underwent surgical procedure which would explain pneumoperitoneum. 1. Small bowel gas pattern remains concerning for ileus versus developing small bowel obstruction. 2. Subcutaneous emphysema on the right side may be normal postsurgical changes. If there appears to be increased swelling or edema in association with this emphysema remains concerning for possible gas-forming infection. Small Bowel X-Ray 09/16/25 14:58 IMPRESSION: Findings are concerning for mechanical small bowel obstruction. Correlation with follow-up KUB later this evening or tomorrow morning ilana mmended if patient managed nonoperatively. Abdomen X-Ray 09/17/25 09:01 IMPRESSION: Findings are consistent with either partial small bowel obstruction or ileus. Labs Labs: Laboratory Results - last 24 hr 09/17/25 09/17/25 03:51 03:52 WBC 11.4 H RBC 2.59 L Hgb 8.6 L Hct 26.6 L MCV 102.7 H MCH 33.2 MCHC 32.3 RDW 13.3 Plt Count 294 MPV 9.5 Sodium 135 L Potassium 3.9 Chloride 100 Carbon Dioxide 29 Anion Gap 6 BUN 25 H Creatinine 0.90 Estim Creat Clear Calc 67 Estimated GFR > 60 Glucose 85 Calcium 8.4 Total Bilirubin 1.7 H AST 42 ALT 22 Alkaline Phosphatase 54 Total Protein 5.8 L Albumin 3.3 L
[2025-09-18] VITALS (12 sets, daily range): BP systolic 126–146; BP diastolic 59–71; PULSE 67–94; RESP 16–24; TEMP 36.5–37.1; O2SAT 95–100
[2025-09-18] MEDS: PIPERACILLIN/TAZOBACTAM SOD 3.375 GM in SODIUM CHLORIDE 0.9% IV 50 ML 100 ML IVPB ×4 (00:22→18:31)
[2025-09-18 04:25] LABS: Hematocrit 27.1 % (42.0-52.0); Hemoglobin 9.0 g/dL (14.0-18.0); Mean Corpuscular HGB Conc 33.2 g/dl (32-36); Mean Corpuscular Hemoglobin 34.0 pg (26-34); Mean Corpuscular Volume 102.3 fl (80-100); Platelet Count Result 269 k/mm3 (150-375); Red Blood Count 2.65 M/mm3 (4.6-6.20); White Blood Count 10.9 K/mm3 (4.5-10.0)
[2025-09-18 04:35] LABS: Alanine Aminotransferase 22 U/L (6-50); Albumin Level 3.3 g/dL (3.5-5.1); Alkaline Phosphatase 51 U/L (38-126); Anion Gap 4 mmol/L (4-12); Aspartate Amino Transferase 39 U/L (17-59); Bilirubin,Total 1.9 mg/dL (0.2-1.3); Blood Urea Nitrogen 21 mg/dL (9-20); Calcium 8.2 mg/dL (8.4-10.2); Carbon Dioxide 28 mmol/L (22-30); Chloride 102 mmol/L (98-107); Estimated CRCL calculation 77 ml/min; Estimated Glomerular Filt Rate > 60; Glucose 80 mg/dL (65-110); Potassium 3.9 mmol/L (3.4-5.0); Sodium 134 mmol/L (137-145); Total Protein 5.7 g/dL (6.3-8.2)
[2025-09-18] MEDS: LACTATED RINGERS 1,000 ML 125 ML IV CONT ×2 (04:36→12:59)
--- NOTE | 2025-09-18 07:16 | P.PNUR_ITS ---
Progress Note: A&P Assessment and Plan (1) Small bowel obstruction: Code(s): K56.609 - Unspecified intestinal obstruction, unspecified as to partial versus complete obstruction Status: Acute Assessment and Plan: * To me, patient seems to be progressing nicely. Tolerating NG clamped since yesterday with a small clear liquids * Abdominal ecchymosis has progressed in H&H is stable. Very scant drainage from left lateral incision Subjective Subjective Date/Time Seen: 09/18/25 07:16 Interval history: NG clamped yesterday, clear liquids - doing well / no n/v and continues to pass flatus Review of Systems Review of Systems: All systems reviewed & are unremarkable except as noted in HPI and below Exam Const: General: no acute distress Resp: Effort & Inspection: normal respiratory effort GI: Inspection: non-distended GI Palp: No abdominal tenderness, No Guarding due to palpation present (GI) and Yes Other GI palpation findings present (scant drainage left lat. incision - much improved) Auscultation: normal bowel sounds Objective Data Vital Signs Vital Signs: Vital Signs - 24 hr 09/17/25 08:00 09/17/25 08:00 09/17/25 08:00 Temperature 98 F Pulse Rate 76 78 Respiratory Rate 18 Blood Pressure 127/61 Pulse Oximetry 99 Oxygen Delivery Room Air 09/17/25 10:00 09/17/25 11:46 09/17/25 12:00 Temperature 98 F Pulse Rate 90 78 76 Respiratory Rate 18 Blood Pressure 131/63 Pulse Oximetry 97 Oxygen Delivery 09/17/25 14:00 09/17/25 16:00 09/17/25 16:00 Temperature 98.1 F Pulse Rate 86 83 81 Respiratory Rate 18 Blood Pressure 140/65 Pulse Oximetry 98 Oxygen Delivery 09/17/25 18:00 09/17/25 20:00 09/17/25 20:00 Temperature 98 F Pulse Rate 94 84 Respiratory Rate 18 Blood Pressure 154/63 H Pulse Oximetry 98 Oxygen Delivery Room Air 09/17/25 20:00 09/17/25 22:00 09/18/25 00:00 Temperature Pulse Rate 82 88 Respiratory Rate Blood Pressure Pulse Oximetry Oxygen Delivery Room Air 09/18/25 00:00 09/18/25 00:00 09/18/25 02:00 Temperature 98 F Pulse Rate 77 78 72 Respiratory Rate 18 Blood Pressure 140/66 Pulse Oximetry 95 Oxygen Delivery 09/18/25 04:00 09/18/25 04:00 09/18/25 04:00 Temperature 97.9 F Pulse Rate 73 73 Respiratory Rate 18 Blood Pressure 146/68 H Pulse Oximetry 100 Oxygen Delivery Room Air 09/18/25 06:00 Temperature Pulse Rate 75 Respiratory Rate Blood Pressure Pulse Oximetry Oxygen Delivery Intake/Output Intake/Output: Intake & Output 09/15/25 09/16/25 09/17/25 09/18/25 23:59 23:59 23:59 23:59 Intake Total 2135.4 3006.3 3039.6 1600 Output Total 1375 3125 1775 600 Balance 760.4 -118.7 1264.6 1000 Meds/Results Medications: Active Medications Generic Name Dose Route Start Last Admin Trade Name Freq PRN Reason Stop Dose Admin Atorvastatin Calcium 40 mg 09/16/25 09:00 09/17/25 09:36 Atorvastatin 40 Mg Tablet PO 40 mg DAILY JAMA Administration Ferrous Sulfate 325 mg 09/16/25 09:00 09/17/25 09:36 Ferrous Sulfate 325 Mg Tablet BY MOUTH 325 mg DAILY JAMA Administration Hydromorphone HCl 0.5 mg 09/15/25 11:50 09/17/25 22:16 Hydromorphone Hcl Inj (*Crx) 1 Mg/Ml Syr IV PUSH 0.5 mg Q4H PRN Administration Pain Rated 7-10 Lactated Ringer's 1,000 mls @ 125 mls/hr 09/15/25 11:50 09/18/25 04:36 Lr - Lactated Ringers Iv IV CONT 125 mls/hr .Q8H JAAM Administration Piperacillin Sod/Tazobactam 50 mls @ 100 mls/hr 09/15/25 18:00 09/18/25 06:20 Sod 3.375 gm/ Sodium Chloride IVPB 100 mls/hr Q6HR JAMA Administration Ondansetron HCl 4 mg 09/15/25 11:50 09/17/25 03:16 Ondansetron Inj 4 Mg/2 Ml Vial IV PUSH 4 mg Q4H PRN Administration Nausea Radiology Results: ITS Impressions Chest/Abdomen/Pelvis CTA 09/15/25 10:26 IMPRESSION: 1. Findings consistent with mechanical small bowel obstruction and perforation with pneumoperitoneum noted. There is also moderately extensive emphysematous infiltrative/edematous changes in the extra peritoneal soft tissues. Correlate clinically to exclude gas forming infection and necrotizing fasciitis in the soft tissues. 2. No pulmonary emboli or thoracic aortic aneurysm/dissection. ADDENDUM: 09/15/25 1126 Study discussed with emergency department and surgical staff. Patient recently underwent surgical procedure which would explain pneumoperitoneum. 1. Small bowel gas pattern remains concerning for ileus versus developing small bowel obstruction. 2. Subcutaneous emphysema on the right side may be normal postsurgical changes. If there appears to be increased swelling or edema in association with this emphysema remains concerning for possible gas-forming infection. Small Bowel X-Ray 09/16/25 14:58 IMPRESSION: Findings are concerning for mechanical small bowel obstruction. Correlation with follow-up KUB later this evening or tomorrow morning recommended if patient managed nonoperatively. Abdomen X-Ray 09/17/25 09:01 IMPRESSION: Findings are consistent with either partial small bowel obstruction or ileus. Labs Labs: Laboratory Results - last 24 hr 09/17/25 09/17/25 09/17/25 03:51 03:52 20:11 WBC 11.4 H RBC 2.59 L Hgb 8.6 L Hct 26.6 L MCV 102.7 H MCH 33.2 MCHC 32.3 RDW 13.3 Plt Count 294 MPV 9.5 Sodium 135 L Potassium 3.9 Chloride 100 Carbon Dioxide 29 Anion Gap 6 BUN 25 H Creatinine 0.90 Estim Creat Clear Calc 67 Estimated GFR > 60 Glucose 85 POC Capillary Glucose 106 H Calcium 8.4 Total Bilirubin 1.7 H AST 42 ALT 22 Alkaline Phosphatase 54 Total Protein 5.8 L Albumin 3.3 L 09/18/25 03:51 WBC 10.9 H RBC 2.65 L Hgb 9.0 L Hct 27.1 L MCV 102.3 H MCH 34.0 MCHC 33.2 RDW 13.3 Plt Count 269 MPV 9.1 Sodium 134 L Potassium 3.9 Chloride 102 Carbon Dioxide 28 Anion Gap 4 BUN 21 H Creatinine 0.77 Estim Creat Clear Calc 77 Estimated GFR > 60 Glucose 80 POC Capillary Glucose Calcium 8.2 L Total Bilirubin 1.9 H AST 39 ALT 22 Alkaline Phosphatase 51 Total Protein 5.7 L Albumin 3.3 L
--- NOTE | 2025-09-18 08:30 | P.PNIM_ITS ---
Progress Note: A&P Assessment and Plan (1) Small bowel obstruction: Code(s): K56.609 - Unspecified intestinal obstruction, unspecified as to partial versus complete obstruction Status: Acute Assessment and Plan: Developing SBO versus postop ileus (more likely postop ileus). Increasing abdominal pain and swelling since 09/13. CTA chest abdomen pelvis revealed small bowel gas pattern concerning for ileus versus developing SBO, subcutaneous emphysema on the right side abdominal wall may be normal postsurgical changes. It would be concerning for possible gas-forming infection if the swelling or edema increases in this area. -general surgery consult with plans for small-bowel series on 09/16 if still no bowel function -NGT to LIS -start clear liquid if NG out -encourage ambulation -no concern for acute abdomen on exam at this time -monitor I&O -monitor electrolytes, CBC -LR at 125 started on 09/15 -hydromorphone p.r.n. -Zofran p.r.n. -some concern but low probability of bowel perforation. Prophylactic Zosyn q.6 hours. -discontinue vanc and metronidazole (2) Prostate cancer: Code(s): C61 - Malignant neoplasm of prostate Status: Chronic Assessment and Plan: Status post robotic assisted radical prostatectomy with bilateral pelvic lymphad enectomy, extensive lysis of adhesions on 09/11/25. Lymph nodes and surgical margins negative for metastatic adenocarcinoma per pathology report. -urology consult -postop Olivera in place (3) Superficial bruising of abdominal wall: Qualifiers: Encounter type: initial encounter Qualified Code(s): S30.11XA - Contusion of abdominal wall, initial encounter Code(s): S30.11XA - Contusion of abdominal wall, initial encounter Status: Acute Assessment and Plan: Related to recent robotic assisted radical prostatectomy requiring lysis of extensive abdominal adhesions. -holding anticoagulation -low concern for active bleeding -monitor hemoglobin, hematocrit (4) Hyperlipidemia: Qualifiers: Hyperlipidemia type: unspecified Qualified Code(s): E78.5 - Hyperlipidemia, unspecified Code(s): E78.5 - Hyperlipidemia, unspecified Status: Chronic Assessment and Plan: Continue atorvastatin Plan Diet: NPO GI prophylaxis: DVT prophylaxis: SCDs lines/drains: PIV, Olivera, NGT Fluids: 1 L LR-LR at 125 started on 09/15 Code status: Full Subjective Date/time seen: 09/18/25 08:30 Interval history: Tolerating small clear liquids. NG clamped from yesterday. Patient is status post Robotic assisted radical prostatectomy with bilateral pelvic lymphadenectomy on 09/11 Review of Systems Review of Systems: All systems reviewed & are unremarkable except as noted in HPI and below Exam Narrative: GENERAL: non-toxic appearing, in no acute distress. HEAD: Normocephalic, atraumatic. EYES: PERRLA. Conjunctivae clear. NOSE: NGT in place THROAT: Pharynx clear, no exudate. NECK: Trachea midline. No adenopathy, no masses. RESPIRATORY: Airway patent, respirations nonlabored. CTA. CARDIOVASCULAR: Regular rate and rhythm without murmurs, rubs, or gallops. BREASTS: Defer GASTROINTESTINAL: Abdomen rounded and tender to palpation with minimal bowel sounds heard throughout. Extensive ecchymosis to right abdomen extending to hip. Crepitus to right side abdominal wall. Surgical site approximated with surgical glue intact. Small umbilical hernia reducible. Right inguinal hernia with pain but reducible. NGT output bilious GENITOURINARY: Olivera in place with tea-colored urine. MUSCULOSKELETAL: Moves all extremities. No gross deformities. No calf tenderness. SKIN: Warm, dry, normal color. NEURO: A&O X4. Speech clear PSYCHIATRIC: Normal interaction Objective Data Vital Signs Vital Signs: Vital Signs - 24 hr 09/17/25 10:00 09/17/25 11:46 09/17/25 12:00 Temperature 98 F Pulse Rate 90 78 76 Respiratory Rate 18 Blood Pressure 131/63 Pulse Oximetry 97 Oxygen Delivery 09/17/25 14:00 09/17/25 16:00 09/17/25 16:00 Temperature 98.1 F Pulse Rate 86 83 81 Respiratory Rate 18 Blood Pressure 140/65 Pulse Oximetry 98 Oxygen Delivery 09/17/25 18:00 09/17/25 20:00 09/17/25 20:00 Temperature 98 F Pulse Rate 94 84 Respiratory Rate 18 Blood Pressure 154/63 H Pulse Oximetry 98 Oxygen Delivery Room Air 09/17/25 20:00 09/17/25 22:00 09/18/25 00:00 Temperature Pulse Rate 82 88 Respiratory Rate Blood Pressure Pulse Oximetry Oxygen Delivery Room Air 09/18/25 00:00 09/18/25 00:00 09/18/25 02:00 Temperature 98 F Pulse Rate 77 78 72 Respiratory Rate 18 Blood Pressure 140/66 Pulse Oximetry 95 Oxygen Delivery 09/18/25 04:00 09/18/25 04:00 09/18/25 04:00 Temperature 97.9 F Pulse Rate 73 73 Respiratory Rate 18 Blood Pressure 146/68 H Pulse Oximetry 100 Oxygen Delivery Room Air 09/18/25 06:00 09/18/25 08:00 Temperature 97.7 F Pulse Rate 75 94 Respiratory Rate 24 H Blood Pressure 145/71 H Pulse Oximetry 100 Oxygen Delivery Intake/Output Intake/Output: Intake & Output 09/15/25 09/16/25 09/17/25 09/18/25 23:59 23:59 23:59 23:59 Intake Total 2135.4 3006.3 3039.6 2080 Output Total 1375 3125 1775 600 Balance 760.4 -118.7 1264.6 1480 Meds/Results Medications: Active Medications Generic Name Dose Route Start Last Admin Trade Name Freq PRN Reason Stop Dose Admin Atorvastatin Calcium 40 mg 09/16/25 09:00 09/17/25 09:36 Atorvastatin 40 Mg Tablet PO 40 mg DAILY JAMA Administration Ferrous Sulfate 325 mg 09/16/25 09:00 09/17/25 09:36 Ferrous Sulfate 325 Mg Tablet BY MOUTH 325 mg DAILY JAMA Administration Hydromorphone HCl 0.5 mg 09/15/25 11:50 09/17/25 22:16 Hydromorphone Hcl Inj (*Crx) 1 Mg/Ml Syr IV PUSH 0.5 mg Q4H PRN Administration Pain Rated 7-10 Lactated Ringer's 1,000 mls @ 125 mls/hr 09/15/25 11:50 09/18/25 04:36 Lr - Lactated Ringers Iv IV CONT 125 mls/hr .Q8H JAMA Administration Piperacillin Sod/Tazobactam 50 mls @ 100 mls/hr 09/15/25 18:00 09/18/25 06:20 Sod 3.375 gm/ Sodium Chloride IVPB 100 mls/hr Q6HR JAMA Administration Ondansetron HCl 4 mg 09/15/25 11:50 09/17/25 03:16 Ondansetron Inj 4 Mg/2 Ml Vial IV PUSH 4 mg Q4H PRN Administration Nausea Radiology Results: ITS Impressions Chest/Abdomen/Pelvis CTA 09/15/25 10:26 IMPRESSION: 1. Findings consistent with mechanical small bowel obstruction and perforation with pneumoperitoneum noted. There is also moderately extensive emphysematous infiltrative/edematous changes in the extra peritoneal soft tissues. Correlate clinically to exclude gas forming infection and necrotizing fasciitis in the soft tissues. 2. No pulmonary emboli or thoracic aortic aneurysm/dissection. ADDENDUM: 09/15/25 1126 Study discussed with emergency department and surgical staff. Patient recently underwent surgical procedure which would explain pneumoperitoneum. 1. Small bowel gas pattern remains concerning for ileus versus developing small bowel obstruction. 2. Subcutaneous emphysema on the right side may be normal postsurgical changes. If there appears to be increased swelling or edema in association with this emphysema remains concerning for possible gas-forming infection. Small Bowel X-Ray 09/16/25 14:58 IMPRESSION: Findings are concerning for mechanical small bowel obstruction. Correlation with follow-up KUB later this evening or tomorrow morning recommended if patient managed nonoperatively. Abdomen X-Ray 09/17/25 09:01 IMPRESSION: Findings are consistent with either partial small bowel obstruction or ileus. Labs Labs: Laboratory Results - last 24 hr 09/17/25 09/17/25 09/17/25 03:51 03:52 20:11 WBC 11.4 H RBC 2.59 L Hgb 8.6 L Hct 26.6 L MCV 102.7 H MCH 33.2 MCHC 32.3 RDW 13.3 Plt Count 294 MPV 9.5 Sodium 135 L Potassium 3.9 Chloride 100 Carbon Dioxide 29 Anion Gap 6 BUN 25 H Creatinine 0.90 Estim Creat Clear Calc 67 Estimated GFR > 60 Glucose 85 POC Capillary Glucose 106 H Calcium 8.4 Total Bilirubin 1.7 H AST 42 ALT 22 Alkaline Phosphatase 54 Total Protein 5.8 L Albumin 3.3 L 09/18/25 03:51 WBC 10.9 H RBC 2.65 L Hgb 9.0 L Hct 27.1 L MCV 102.3 H MCH 34.0 MCHC 33.2 RDW 13.3 Plt Count 269 MPV 9.1 Sodium 134 L Potassium 3.9 Chloride 102 Carbon Dioxide 28 Anion Gap 4 BUN 21 H Creatinine 0.77 Estim Creat Clear Calc 77 Estimated GFR > 60 Glucose 80 POC Capillary Glucose Calcium 8.2 L Total Bilirubin 1.9 H AST 39 ALT 22 Alkaline Phosphatase 51 Total Protein 5.7 L Albumin 3.3 L Quality VTE Prophylaxis VTE prophylaxis: mechanical ordered Hospitalist MIPS Advance Care Plan I have confirmed that the patient's Advanced Care Plan is present, code status is documented, or surrogate decision maker is listed in patient medical record.: Yes Medication Reconciliation I have utilized all available resources to obtain, update and review the patients current medications (includes all prescriptions, OTC, herbals, cannabis, and nutritional supplements).: Yes
[2025-09-18] MEDS: ATORVASTATIN 40 MG TABLET PO (09:07)
[2025-09-18] MEDS: FERROUS SULFATE 325 MG TABLET BY MOUTH (09:07)
--- NOTE | 2025-09-18 09:18 | P.PNGS_ITS ---
Progress Note: A&P Assessment and Plan (1) Small bowel obstruction: Code(s): K56.609 - Unspecified intestinal obstruction, unspecified as to partial versus complete obstruction Status: Acute Assessment and Plan: * Patient had several bowel movements yesterday. Tolerated clamping trial overnight. Clear liquids. NG tube removed this morning. * If patient tollerates clear liquids today will consider advancing to fulls. (2) Right inguinal hernia: Code(s): K40.90 - Unilateral inguinal hernia, without obstruction or gangrene, not specified as recurrent Status: Acute Assessment and Plan: (3) Superficial bruising of abdominal wall: Qualifiers: Encounter type: initial encounter Qualified Code(s): S30.11XA - Contusion of abdominal wall, initial encounter Code(s): S30.11XA - Contusion of abdominal wall, initial encounter Status: Acute Assessment and Plan: Significant bruising from surgery throughout abdomen and spreading to groin and back. secondary to recent surgery, will continue to follow, hold all anticoagulation at this point Plan Discussed patient's case and plan of care with Dr. Campbell. Subjective Subjective Date/Time Seen: 09/18/25 09:18 Patient reports: no new complaints, feels better, tolerating liquids well and bowel movement Interval history: Patient doing well today. Tolerated clamping trial overnight. According to nursing staff, patient had some abdominal discomfort yesterday and was hooked back up to suction for a short time. No nausea or vomiting yesterday or today. WBC 10.9. Exam Const: General: comfortable and no acute distress GI: Inspection: abdominal wall ecchymosis, distended and incision GI Palp: Yes Tenderness to palpation present (GI) (diffusely throughout abdomen, but mainly surrounding left lower incisions) Auscultation: abnormal bowel sounds (hypoactive) Other: Extensive ecchymosis throughout lower abdomen into groin area and extending all the way throughout his back. Seems to be some blistering to certain areas of skin. Left sided abdominal incision with some serosanguineous drainage. Incision is not fully dehisced. Objective Data Vital Signs Vital Signs: Vital Signs - 24 hr 09/17/25 10:00 09/17/25 11:46 09/17/25 12:00 Temperature 98 F Pulse Rate 90 78 76 Respiratory Rate 18 Blood Pressure 131/63 Pulse Oximetry 97 Oxygen Delivery 09/17/25 14:00 09/17/25 16:00 09/17/25 16:00 Temperature 98.1 F Pulse Rate 86 83 81 Respiratory Rate 18 Blood Pressure 140/65 Pulse Oximetry 98 Oxygen Delivery 09/17/25 18:00 09/17/25 20:00 09/17/25 20:00 Temperature 98 F Pulse Rate 94 84 Respiratory Rate 18 Blood Pressure 154/63 H Pulse Oximetry 98 Oxygen Delivery Room Air 09/17/25 20:00 09/17/25 22:00 09/18/25 00:00 Temperature Pulse Rate 82 88 Respiratory Rate Blood Pressure Pulse Oximetry Oxygen Delivery Room Air 09/18/25 00:00 09/18/25 00:00 09/18/25 02:00 Temperature 98 F Pulse Rate 77 78 72 Respiratory Rate 18 Blood Pressure 140/66 Pulse Oximetry 95 Oxygen Delivery 09/18/25 04:00 09/18/25 04:00 09/18/25 04:00 Temperature 97.9 F Pulse Rate 73 73 Respiratory Rate 18 Blood Pressure 146/68 H Pulse Oximetry 100 Oxygen Delivery Room Air 09/18/25 06:00 09/18/25 08:00 Temperature 97.7 F Pulse Rate 75 94 Respiratory Rate 24 H Blood Pressure 145/71 H Pulse Oximetry 100 Oxygen Delivery Intake/Output Intake/Output: Intake & Output 09/15/25 09/16/25 09/17/25 09/18/25 23:59 23:59 23:59 23:59 Intake Total 2135.4 3006.3 3039.6 2080 Output Total 1375 3125 1775 600 Balance 760.4 -118.7 1264.6 1480 Meds/Results Medications: Active Medications Generic Name Dose Route Start Last Admin Trade Name Freq PRN Reason Stop Dose Admin Atorvastatin Calcium 40 mg 09/16/25 09:00 09/18/25 09:07 Atorvastatin 40 Mg Tablet PO 40 mg DAILY JAMA Administration Ferrous Sulfate 325 mg 09/16/25 09:00 09/18/25 09:07 Ferrous Sulfate 325 Mg Tablet BY MOUTH 325 mg DAILY JMAA Administration Hydromorphone HCl 0.5 mg 09/15/25 11:50 09/17/25 22:16 Hydromorphone Hcl Inj (*Crx) 1 Mg/Ml Syr IV PUSH 0.5 mg Q4H PRN Administration Pain Rated 7-10 Lactated Ringer's 1,000 mls @ 125 mls/hr 09/15/25 11:50 09/18/25 04:36 Lr - Lactated Ringers Iv IV CONT 125 mls/hr .Q8H JAMA Administration Piperacillin Sod/Tazobactam 50 mls @ 100 mls/hr 09/15/25 18:00 09/18/25 06:20 Sod 3.375 gm/ Sodium Chloride IVPB 100 mls/hr Q6HR JAMA Administration Ondansetron HCl 4 mg 09/15/25 11:50 09/17/25 03:16 Ondansetron Inj 4 Mg/2 Ml Vial IV PUSH 4 mg Q4H PRN Administration Nausea Radiology Results: ITS Impressions Chest/Abdomen/Pelvis CTA 09/15/25 10:26 IMPRESSION: 1. Findings consistent with mechanical small bowel obstruction and perforation with pneumoperitoneum noted. There is also moderately extensive emphysematous infiltrative/edematous changes in the extra peritoneal soft tissues. Correlate clinically to exclude gas forming infection and necrotizing fasciitis in the soft tissues. 2. No pulmonary emboli or thoracic aortic aneurysm/dissection. ADDENDUM: 09/15/25 1126 Study discussed with emergency department and surgical staff. Patient recently underwent surgical procedure which would explain pneumoperitoneum. 1. Small bowel gas pattern remains concerning for ileus versus developing small bowel obstruction. 2. Subcutaneous emphysema on the right side may be normal postsurgical changes. If there appears to be increased swelling or edema in association with this emphysema remains concerning for possible gas-forming infection. Small Bowel X-Ray 09/16/25 14:58 IMPRESSION: Findings are concerning for mechanical small bowel obstruction. Correlation with follow-up KUB later this evening or tomorrow morning recommended if patient managed nonoperatively. Abdomen X-Ray 09/17/25 09:01 IMPRESSION: Findings are consistent with either partial small bowel obstruction or ileus. Labs Labs: Laboratory Results - last 24 hr 09/17/25 09/18/25 20:11 03:51 WBC 10.9 H RBC 2.65 L Hgb 9.0 L Hct 27.1 L MCV 102.3 H MCH 34.0 MCHC 33.2 RDW 13.3 Plt Count 269 MPV 9.1 Sodium 134 L Potassium 3.9 Chloride 102 Carbon Dioxide 28 Anion Gap 4 BUN 21 H Creatinine 0.77 Estim Creat Clear Calc 77 Estimated GFR > 60 Glucose 80 POC Capillary Glucose 106 H Calcium 8.2 L Total Bilirubin 1.9 H AST 39 ALT 22 Alkaline Phosphatase 51 Total Protein 5.7 L Albumin 3.3 L
[2025-09-18] MEDS: HYDROcodone/acetaminophen (*CRX) 5-325 MG TABLET 1 TAB PO ×2 (12:58→22:47)
--- NOTE | 2025-09-18 18:50 | PC.NURSE ---
This patient, Rigoberto Charles, was received from IMU on 09/18/25 at 1850. Patient/family oriented to unit policies and routines
--- NOTE | 2025-09-18 19:27 | PC.NURSE ---
1845- report given to Noreen RN- pt moved to room 215 via wheelchair accompanied by staff - personal belongings with pt
[2025-09-19] MEDS: PIPERACILLIN/TAZOBACTAM SOD 3.375 GM in SODIUM CHLORIDE 0.9% IV 50 ML 100 ML IVPB ×3 (00:03→13:07)
[2025-09-19] MEDS: LACTATED RINGERS 1,000 ML 125 ML IV CONT (01:45)
[2025-09-19] MEDS: HYDROcodone/acetaminophen (*CRX) 5-325 MG TABLET 1 TAB PO (04:13)
[2025-09-19 05:31] LABS: Hematocrit 27.1 % (42.0-52.0); Hemoglobin 8.8 g/dL (14.0-18.0); Mean Corpuscular HGB Conc 32.5 g/dl (32-36); Mean Corpuscular Hemoglobin 33.0 pg (26-34); Mean Corpuscular Volume 101.5 fl (80-100); Platelet Count Result 292 k/mm3 (150-375); Red Blood Count 2.67 M/mm3 (4.6-6.20); White Blood Count 10.3 K/mm3 (4.5-10.0)
[2025-09-19 05:54] LABS: Alanine Aminotransferase 23 U/L (6-50); Albumin Level 3.2 g/dL (3.5-5.1); Alkaline Phosphatase 53 U/L (38-126); Anion Gap 1 mmol/L (4-12); Aspartate Amino Transferase 42 U/L (17-59); Bilirubin,Total 2.6 mg/dL (0.2-1.3); Blood Urea Nitrogen 11 mg/dL (9-20); Calcium 8.1 mg/dL (8.4-10.2); Carbon Dioxide 30 mmol/L (22-30); Chloride 104 mmol/L (98-107); Estimated CRCL calculation 77 ml/min; Estimated Glomerular Filt Rate > 60; Glucose 111 mg/dL (65-110); Potassium 3.9 mmol/L (3.4-5.0); Sodium 135 mmol/L (137-145); Total Protein 5.8 g/dL (6.3-8.2)
--- NOTE | 2025-09-19 07:05 | P.PNUR_ITS ---
Progress Note: A&P Assessment and Plan (1) Prostate cancer: Code(s): C61 - Malignant neoplasm of prostate Status: Chronic (2) Adynamic ileus: Code(s): K56.0 - Paralytic ileus Status: Acute Assessment and Plan: * Patient is doing well with NG tube out and progression of diet. Appreciate General surgery supervision * Cystogram today with subsequent catheter removal if no extravasation Subjective Subjective Date/Time Seen: 09/19/25 07:05 Interval history: Doing well with the NG-tube out; tolerating diet Review of Systems 2 Review of Systems: All systems reviewed & are unremarkable except as noted in HPI and below Exam Const: General: no acute distress Resp: Effort & Inspection: normal respiratory effort GI: Inspection: non-distended GI Palp: No abdominal tenderness, No Guarding due to palpation present (GI) and Yes Other GI palpation findings present (scant drainage left lat. incision - much improved) Auscultation: Hypoactive bowel sounds present Objective Data Vital Signs Vital Signs: Vital Signs - 24 hr 09/18/25 08:00 09/18/25 08:40 09/18/25 10:00 Temperature 97.7 F Pulse Rate 94 94 73 Respiratory Rate 24 H Blood Pressure 145/71 H Pulse Oximetry 100 Oxygen Delivery 09/18/25 11:52 09/18/25 12:00 09/18/25 14:00 Temperature 98.8 F Pulse Rate 72 67 Respiratory Rate 18 Blood Pressure 129/63 Pulse Oximetry 96 Oxygen Delivery Room Air 09/18/25 16:00 09/18/25 16:00 09/18/25 18:56 Temperature 98.4 F 98.2 F Pulse Rate 67 71 72 Respiratory Rate 20 16 Blood Pressure 126/59 L 133/69 Pulse Oximetry 100 100 Oxygen Delivery 09/18/25 20:00 09/18/25 20:18 Temperature 98.0 F Pulse Rate 70 Respiratory Rate 20 Blood Pressure 126/61 Pulse Oximetry 100 Oxygen Delivery Room Air Intake/Output Intake/Output: Intake & Output 09/16/25 09/17/25 09/18/25 09/19/25 23:59 23:59 23:59 23:59 Intake Total 3006.3 3039.6 5330 50 Output Total 3125 1775 1950 1200 Balance -118.7 1264.6 3380 -1150 Meds/Results Medications: Active Medications Generic Name Dose Route Start Last Admin Trade Name Freq PRN Reason Stop Dose Admin Hydrocodone Bitart/Acetaminophen 1 tab 09/18/25 10:59 09/19/25 04:13 Hydrocodone/Acetaminophen (*Crx) 5-325 Mg Tablet PO 1 tab Q4H PRN Administration Pain Rated 4-6 Atorvastatin Calcium 40 mg 09/16/25 09:00 09/18/25 09:07 Atorvastatin 40 Mg Tablet PO 40 mg DAILY JAMA Administration Ferrous Sulfate 325 mg 09/16/25 09:00 09/18/25 09:07 Ferrous Sulfate 325 Mg Tablet BY MOUTH 325 mg DAILY JAMA Administration Hydromorphone HCl 0.5 mg 09/15/25 11:50 09/17/25 22:16 Hydromorphone Hcl Inj (*Crx) 1 Mg/Ml Syr IV PUSH 0.5 mg Q4H PRN Administration Pain Rated 7-10 Lactated Ringer's 1,000 mls @ 125 mls/hr 09/15/25 11:50 09/19/25 01:45 Lr - Lactated Ringers Iv IV CONT 125 mls/hr .Q8H JAMA Administration Piperacillin Sod/Tazobactam 50 mls @ 100 mls/hr 09/15/25 18:00 09/19/25 06:17 Sod 3.375 gm/ Sodium Chloride IVPB 100 mls/hr Q6HR JAMA Administration Ondansetron HCl 4 mg 09/15/25 11:50 09/17/25 03:16 Ondansetron Inj 4 Mg/2 Ml Vial IV PUSH 4 mg Q4H PRN Administration Nausea Radiology Results: ITS Impressions Chest/Abdomen/Pelvis CTA 09/15/25 10:26 IMPRESSION: 1. Findings consistent with mechanical small bowel obstruction and perforation with pneumoperitoneum noted. There is also moderately extensive emphysematous infiltrative/edematous changes in the extra peritoneal soft tissues. Correlate clinically to exclude gas forming infection and necrotizing fasciitis in the soft tissues. 2. No pulmonary emboli or thoracic aortic aneurysm/dissection. ADDENDUM: 09/15/25 1126 Study discussed with emergency department and surgical staff. Patient recently underwent surgical procedure which would explain pneumoperitoneum. 1. Small bowel gas pattern remains concerning for ileus versus developing small bowel obstruction. 2. Subcutaneous emphysema on the right side may be normal postsurgical changes. If there appears to be increased swelling or edema in association with this emphysema remains concerning for possible gas-forming infection. Small Bowel X-Ray 09/16/25 14:58 IMPRESSION: Findings are concerning for mechanical small bowel obstruction. Correlation with follow-up KUB later this evening or tomorrow morning recommended if patient managed nonoperatively. Abdomen X-Ray 09/17/25 09:01 IMPRESSION: Findings are consistent with either partial small bowel obstruction or ileus. Labs Labs: Laboratory Results - last 24 hr 09/19/25 05:20 WBC 10.3 H RBC 2.67 L Hgb 8.8 L Hct 27.1 L MCV 101.5 H MCH 33.0 MCHC 32.5 RDW 13.3 Plt Count 292 MPV 8.8 Sodium 135 L Potassium 3.9 Chloride 104 Carbon Dioxide 30 Anion Gap 1 L BUN 11 D Creatinine 0.77 Estim Creat Clear Calc 77 Estimated GFR > 60 Glucose 111 H Calcium 8.1 L Total Bilirubin 2.6 H AST 42 ALT 23 Alkaline Phosphatase 53 Total Protein 5.8 L Albumin 3.2 L
--- NOTE | 2025-09-19 08:26 | PM.PNGS ---
Progress Note: A&P Assessment and Plan (1) Adynamic ileus: Code(s): K56.0 - Paralytic ileus Status: Acute Assessment and Plan: largely resolved, will advance to solid diet, if tolerating diet okay to [place] home from surgical standpoint, follow-up p.r.n. Subjective Subjective Date/Time Seen: 09/19/25 08:26 Interval history: feels good, lance full liquids, +bowel fxn Review of Systems Review of Systems: All systems reviewed & are unremarkable except as noted in HPI and below Exam Const: General: cooperative, comfortable and no acute distress Resp: Auscultation: clear to auscultation bilaterally Cardio: Rate: regular rate Rhythm: regular rhythm GI: Inspection: normal to inspection, abdominal wall ecchymosis, non-distended and incision GI Palp: No abdominal tenderness and Yes Soft to palpation Objective Data Vital Signs Vital Signs: Vital Signs - 24 hr 09/18/25 08:40 09/18/25 10:00 09/18/25 11:52 Temperature 37.1 C Pulse Rate 94 73 72 Respiratory Rate 18 Blood Pressure 129/63 Pulse Oximetry 96 Oxygen Delivery 09/18/25 12:00 09/18/25 14:00 09/18/25 16:00 Temperature 36.9 C Pulse Rate 67 67 Respiratory Rate 20 Blood Pressure 126/59 L Pulse Oximetry 100 Oxygen Delivery Room Air 09/18/25 16:00 09/18/25 18:56 09/18/25 20:00 Temperature 36.8 C Pulse Rate 71 72 Respiratory Rate 16 Blood Pressure 133/69 Pulse Oximetry 100 Oxygen Delivery Room Air 09/18/25 20:18 Temperature 36.7 C Pulse Rate 70 Respiratory Rate 20 Blood Pressure 126/61 Pulse Oximetry 100 Oxygen Delivery Intake/Output Intake/Output: Intake & Output 09/16/25 09/17/25 09/18/25 09/19/25 23:59 23:59 23:59 23:59 Intake Total 3006.3 3039.6 5330 50 Output Total 3125 1775 1950 1200 Balance -118.7 1264.6 3380 -1150 Meds/Results Medications: Active Medications Generic Name Dose Route Start Last Admin Trade Name Freq PRN Reason Stop Dose Admin Hydrocodone Bitart/Acetaminophen 1 tab 09/18/25 10:59 09/19/25 04:13 Hydrocodone/Acetaminophen (*Crx) 5-325 Mg Tablet PO 1 tab Q4H PRN Administration Pain Rated 4-6 Atorvastatin Calcium 40 mg 09/16/25 09:00 09/18/25 09:07 Atorvastatin 40 Mg Tablet PO 40 mg DAILY JAMA Administration Ferrous Sulfate 325 mg 09/16/25 09:00 09/18/25 09:07 Ferrous Sulfate 325 Mg Tablet BY MOUTH 325 mg DAILY JAMA Administration Hydromorphone HCl 0.5 mg 09/15/25 11:50 09/17/25 22:16 Hydromorphone Hcl Inj (*Crx) 1 Mg/Ml Syr IV PUSH 0.5 mg Q4H PRN Administration Pain Rated 7-10 Lactated Ringer's 1,000 mls @ 125 mls/hr 09/15/25 11:50 09/19/25 01:45 Lr - Lactated Ringers Iv IV CONT 125 mls/hr .Q8H JAMA Administration Piperacillin Sod/Tazobactam 50 mls @ 100 mls/hr 09/15/25 18:00 09/19/25 06:17 Sod 3.375 gm/ Sodium Chloride IVPB 100 mls/hr Q6HR JAMA Administration Ondansetron HCl 4 mg 09/15/25 11:50 09/17/25 03:16 Ondansetron Inj 4 Mg/2 Ml Vial IV PUSH 4 mg Q4H PRN Administration Nausea Radiology Results: ITS Impressions Chest/Abdomen/Pelvis CTA 09/15/25 10:26 IMPRESSION: 1. Findings consistent with mechanical small bowel obstruction and perforation with pneumoperitoneum noted. There is also moderately extensive emphysematous infiltrative/edematous changes in the extra peritoneal soft tissues. Correlate clinically to exclude gas forming infection and necrotizing fasciitis in the soft tissues. 2. No pulmonary emboli or thoracic aortic aneurysm/dissection. ADDENDUM: 09/15/25 1126 Study discussed with emergency department and surgical staff. Patient recently underwent surgical procedure which would explain pneumoperitoneum. 1. Small bowel gas pattern remains concerning for ileus versus developing small bowel obstruction. 2. Subcutaneous emphysema on the right side may be normal postsurgical changes. If there appears to be increased swelling or edema in association with this emphysema remains concerning for possible gas-forming infection. Small Bowel X-Ray 09/16/25 14:58 IMPRESSION: Findings are concerning for mechanical small bowel obstruction. Correlation with follow-up KUB later this evening or tomorrow morning recommended if patient managed nonoperatively. Abdomen X-Ray 09/17/25 09:01 IMPRESSION: Findings are consistent with either partial small bowel obstruction or ileus. Labs Labs: Laboratory Results - last 24 hr 09/19/25 05:20 WBC 10.3 H RBC 2.67 L Hgb 8.8 L Hct 27.1 L MCV 101.5 H MCH 33.0 MCHC 32.5 RDW 13.3 Plt Count 292 MPV 8.8 Sodium 135 L Potassium 3.9 Chloride 104 Carbon Dioxide 30 Anion Gap 1 L BUN 11 D Creatinine 0.77 Estim Creat Clear Calc 77 Estimated GFR > 60 Glucose 111 H Calcium 8.1 L Total Bilirubin 2.6 H AST 42 ALT 23 Alkaline Phosphatase 53 Total Protein 5.8 L Albumin 3.2 L
[2025-09-19 08:27] VITALS: BP 121/62; PULSE 76; RESP 16; TEMP 36.4; O2SAT 100
[2025-09-19] MEDS: FERROUS SULFATE 325 MG TABLET BY MOUTH (08:28)
[2025-09-19] MEDS: ATORVASTATIN 40 MG TABLET PO (08:28)
--- NOTE | 2025-09-19 09:45 | PC.NURSE ---
pt taken down for imaging
--- NOTE | 2025-09-19 10:36 | PC.NURSE ---
pt returned from xray
--- NOTE | 2025-09-19 12:31 | P.PNIM_ITS ---
Progress Note: A&P Assessment and Plan (1) Small bowel obstruction: Code(s): K56.609 - Unspecified intestinal obstruction, unspecified as to partial versus complete obstruction Status: Acute Assessment and Plan: Developing SBO versus postop ileus (more likely postop ileus). Increasing abdominal pain and swelling since 09/13. CTA chest abdomen pelvis revealed small bowel gas pattern concerning for ileus versus developing SBO, subcutaneous emphysema on the right side abdominal wall may be normal postsurgical changes. It would be concerning for possible gas-forming infection if the swelling or edema increases in this area. -general surgery consult with plans for small-bowel series on 09/16 if still no bowel function -NGT to LIS -start clear liquid if NG out -encourage ambulation -no concern for acute abdomen on exam at this time -monitor I&O -monitor electrolytes, CBC -LR at 125 started on 09/15 -hydromorphone p.r.n. -Zofran p.r.n. -some concern but low probability of bowel perforation. Prophylactic Zosyn q.6 hours. -discontinue vanc and metronidazole (2) Prostate cancer: Code(s): C61 - Malignant neoplasm of prostate Status: Chronic Assessment and Plan: Status post robotic assisted radical prostatectomy with bilateral pelvic lymp hadenectomy, extensive lysis of adhesions on 09/11/25. Lymph nodes and surgical margins negative for metastatic adenocarcinoma per pathology report. -urology consult -postop Olivera in place (3) Superficial bruising of abdominal wall: Qualifiers: Encounter type: initial encounter Qualified Code(s): S30.11XA - Contusion of abdominal wall, initial encounter Code(s): S30.11XA - Contusion of abdominal wall, initial encounter Status: Acute Assessment and Plan: Related to recent robotic assisted radical prostatectomy requiring lysis of extensive abdominal adhesions. -holding anticoagulation -low concern for active bleeding -monitor hemoglobin, hematocrit (4) Hyperlipidemia: Qualifiers: Hyperlipidemia type: unspecified Qualified Code(s): E78.5 - Hyperlipidemia, unspecified Code(s): E78.5 - Hyperlipidemia, unspecified Status: Chronic Assessment and Plan: Continue atorvastatin Plan Diet: NPO GI prophylaxis: DVT prophylaxis: SCDs lines/drains: PIV, Olivera, NGT Fluids: 1 L LR-LR at 125 started on 09/15 Code status: Full Subjective Date/time seen: 09/19/25 12:31 Interval history: Patient continues to feel better. Patient underwent cystogram. Results pending. status post Robotic assisted radical prostatectomy with bilateral pelvic lymphadenectomy on 09/11. In regards to bowel obstruction s/p NG tube, tolerating clear liquid Review of Systems Review of Systems: All systems reviewed & are unremarkable except as noted in HPI and below Exam Narrative: GENERAL: non-toxic appearing, in no acute distress. HEAD: Normocephalic, atraumatic. EYES: PERRLA. Conjunctivae clear. NOSE: NGT in place THROAT: Pharynx clear, no exudate. NECK: Trachea midline. No adenopathy, no masses. RESPIRATORY: Airway patent, respirations nonlabored. CTA. CARDIOVASCULAR: Regular rate and rhythm without murmurs, rubs, or gallops. BREASTS: Defer GASTROINTESTINAL: Abdomen rounded and tender to palpation with minimal bowel sounds heard throughout. Extensive ecchymosis to right abdomen extending to hip. Crepitus to right side abdominal wall. Surgical site approximated with surgical glue intact. Small umbilical hernia reducible. Right inguinal hernia with pain but reducible. NGT output bilious GENITOURINARY: Olivera in place with tea-colored urine. MUSCULOSKELETAL: Moves all extremities. No gross deformities. No calf tenderness. SKIN: Warm, dry, normal color. NEURO: A&O X4. Speech clear PSYCHIATRIC: Normal interaction Objective Data Vital Signs Vital Signs: Vital Signs - 24 hr 09/18/25 14:00 09/18/25 16:00 09/18/25 16:00 Temperature 98.4 F Pulse Rate 67 67 71 Respiratory Rate 20 Blood Pressure 126/59 L Pulse Oximetry 100 Oxygen Delivery 09/18/25 18:56 09/18/25 20:00 09/18/25 20:18 Temperature 98.2 F 98.0 F Pulse Rate 72 70 Respiratory Rate 16 20 Blood Pressure 133/69 126/61 Pulse Oximetry 100 100 Oxygen Delivery Room Air 09/19/25 08:20 09/19/25 08:27 Temperature 97.6 F Pulse Rate 76 Respiratory Rate 16 Blood Pressure 121/62 Pulse Oximetry 100 Oxygen Delivery Room Air Intake/Output Intake/Output: Intake & Output 09/16/25 09/17/25 09/18/25 09/19/25 23:59 23:59 23:59 23:59 Intake Total 3006.3 3039.6 5330 290 Output Total 3125 1775 1950 1200 Balance -118.7 1264.6 3380 -910 Meds/Results Medications: Active Medications Generic Name Dose Route Start Last Admin Trade Name Freq PRN Reason Stop Dose Admin Hydrocodone Bitart/Acetaminophen 1 tab 09/18/25 10:59 09/19/25 04:13 Hydrocodone/Acetaminophen (*Crx) 5-325 Mg Tablet PO 1 tab Q4H PRN Administration Pain Rated 4-6 Atorvastatin Calcium 40 mg 09/16/25 09:00 09/19/25 08:28 Atorvastatin 40 Mg Tablet PO 40 mg DAILY JAMA Administration Ferrous Sulfate 325 mg 09/16/25 09:00 09/19/25 08:28 Ferrous Sulfate 325 Mg Tablet BY MOUTH 325 mg DAILY JAMA Administration Hydromorphone HCl 0.5 mg 09/15/25 11:50 09/17/25 22:16 Hydromorphone Hcl Inj (*Crx) 1 Mg/Ml Syr IV PUSH 0.5 mg Q4H PRN Administration Pain Rated 7-10 Lactated Ringer's 1,000 mls @ 125 mls/hr 09/15/25 11:50 09/19/25 01:45 Lr - Lactated Ringers Iv IV CONT 125 mls/hr .Q8H JAMA Administration Piperacillin Sod/Tazobactam 50 mls @ 100 mls/hr 09/15/25 18:00 09/19/25 06:17 Sod 3.375 gm/ Sodium Chloride IVPB 100 mls/hr Q6HR JAMA Administration Ondansetron HCl 4 mg 09/15/25 11:50 09/17/25 03:16 Ondansetron Inj 4 Mg/2 Ml Vial IV PUSH 4 mg Q4H PRN Administration Nausea Radiology Results: ITS Impressions Chest/Abdomen/Pelvis CTA 09/15/25 10:26 IMPRESSION: 1. Findings consistent with mechanical small bowel obstruction and perforation with pneumoperitoneum noted. There is also moderately extensive emphysematous infiltrative/edematous changes in the extra peritoneal soft tissues. Correlate clinically to exclude gas forming infection and necrotizing fasciitis in the soft tissues. 2. No pulmonary emboli or thoracic aortic aneurysm/dissection. ADDENDUM: 09/15/25 1126 Study discussed with emergency department and surgical staff. Patient recently underwent surgical procedure which would explain pneumoperitoneum. 1. Small bowel gas pattern remains concerning for ileus versus developing small bowel obstruction. 2. Subcutaneous emphysema on the right side may be normal postsurgical changes. If there appears to be increased swelling or edema in association with this emphysema remains concerning for possible gas-forming infection. Small Bowel X-Ray 09/16/25 14:58 IMPRESSION: Findings are concerning for mechanical small bowel obstruction. Correlation with follow-up KUB later this evening or tomorrow morning recommended if patient managed nonoperatively. Abdomen X-Ray 09/17/25 09:01 IMPRESSION: Findings are consistent with either partial small bowel obstruction or ileus. Cystogram 09/19/25 10:39 IMPRESSION: Somewhat limited exam due to patient discomfort but no evidence of extravasation of contrast or leakage. Moderate amount of bladder wall trabeculation noted. Labs Labs: Laboratory Results - last 24 hr 09/19/25 05:20 WBC 10.3 H RBC 2.67 L Hgb 8.8 L Hct 27.1 L MCV 101.5 H MCH 33.0 MCHC 32.5 RDW 13.3 Plt Count 292 MPV 8.8 Sodium 135 L Potassium 3.9 Chloride 104 Carbon Dioxide 30 Anion Gap 1 L BUN 11 D Creatinine 0.77 Estim Creat Clear Calc 77 Estimated GFR > 60 Glucose 111 H Calcium 8.1 L Total Bilirubin 2.6 H AST 42 ALT 23 Alkaline Phosphatase 53 Total Protein 5.8 L Albumin 3.2 L Quality VTE Prophylaxis VTE prophylaxis: mechanical ordered Hospitalist MIPS Advance Care Plan I have confirmed that the patient's Advanced Care Plan is present, code status is documented, or surrogate decision maker is listed in patient medical record.: Yes Medication Reconciliation I have utilized all available resources to obtain, update and review the patients current medications (includes all prescriptions, OTC, herbals, cannabis, and nutritional supplements).: Yes
--- NOTE | 2025-09-19 12:31 | P.CDI_ITS ---
CDI Query Clarification Request Please clarify ileus: * Post op ileus * Adynamic ileus * adynamic ileus cause by surgery * unknown * other, please specify Hospitalist: Assessment and Plan (1) Small bowel obstruction: Code(s): K56.609 - Unspecified intestinal obstruction, unspecified as to partial versus complete obstruction Status: Acute Assessment and Plan: Developing SBO versus postop ileus (more likely postop ileus). Increasing abdominal pain and swelling since 09/13. CTA chest abdomen pelvis revealed small bowel gas pattern concerning for ileus versus developing SBO, subcutaneous emphysema on the right side abdominal wall may be normal postsurgical changes. It would be concerning for possible gas-forming infection if the swelling or edema increases in this area. -general surgery consult with plans for small-bowel series on 09/16 if still no bowel function -NGT to LIS -start clear liquid if NG out -encourage ambulation -no concern for acute abdomen on exam at this time -monitor I&O -monitor electrolytes, CBC -LR at 125 started on 09/15 -hydromorphone p.r.n. -Zofran p.r.n. -some concern but low probability of bowel perforation. Prophylactic Zosyn q.6 hours. -discontinue vanc and metronidazole General surgery documented: Assessment and Plan (1) Adynamic ileus: Code(s): K56.0 - Paralytic ileus Status: Acute Assessment and Plan: largely resolved, will advance to solid diet, if tolerating diet okay to [place] home from surgical standpoint, follow-up p.r.n. ABD xray: IMPRESSION: Findings are consistent with either partial small bowel obstruction or ileus. <Bonnie Shaw RN - Last Filed: 09/19/25 12:34> Clarified Diagnosis Clarified Diagnosis: Adynamic ileus <Arian Lucia MD - Last Filed: 09/19/25 13:34>
[2025-09-19 14:52] VITALS: BP 143/70; PULSE 80; RESP 18; TEMP 36.3; O2SAT 100
--- NOTE | 2025-09-30 12:49 | PM.DS ---
DS: Admitting Diagnosis Discharge Date 09/19/25 Admitting Diagnosis Prostate cancer DS: Discharge Diagnosis Discharge Diagnosis (1) Adynamic ileus: Code(s): K56.0 - Paralytic ileus Status: Acute (2) Prostate cancer: Code(s): C61 - Malignant neoplasm of prostate Status: Chronic DS: Summary Hospital Course Hospital Course: Patient had undergone a robotic assisted radical prostatectomy 4 days prior to this admission. The procedure was notable for extensive abdominal adhesions requiring extensive lysis prior to performing the robotic prostatectomy with bilateral pelvic lymphadenectomy. At the time of discharge he was tolerating a diet and doing well but presented 4 days later with progressive abdominal distention, pain and nausea/vomiting. Additionally he had extensive ecchymosis of the abdominal wall consistent with a abdominal wall muscular bleed from placement of a trocar. The was seen in consultation by General surgery the consensus was that he likely had a adynamic ileus. This was supported by imaging studies and, as expected, his ileus slowly resolved with NG tube placement and bowel rest. Prior to discharge his NG tube had been out for at least 24 hours and he was tolerating a diet. He was having bowel movements and otherwise doing well Time Spent with Patient Time attestation: Total time spent providing and/or coordinating discharge services: Exam Const: General: no acute distress Resp: Effort & Inspection: normal respiratory effort GI: Inspection: non-distended GI Palp: No abdominal tenderness and No Guarding due to palpation present (GI) Auscultation: normal bowel sounds Discharge Plan Discharge Attending physician on discharge: Jose Antonio Santana Consulting providers: Mikel England; Jessica Campbell; Charla Mckeon Jami F.; Noreen Call; David Gordillo Discharging Clinician: Mikel England Patient Disposition: Home Activity: february shower Diet: as tolerated Discharge Instructions: 1) Olivera catheter -> leg bag / bedside bag at night. 2) No lifting/straining >15lbs. x3 weeks. 3) Resume normal, pre-operative diet. 5) My office will contact regarding follow-up in 2-weeks. Patient Instructions: Antibiotic Form Patient Language: Ethiopian Stand Alone Forms: General Discharge Information Follow-up/Referrals: Mikel England MD [Physician, Urology] Discharge Medications: Continued hydrocodone-acetaminophen 5-325 mg tablet 1 - 2 tablet PO Q6H PRN (Reason: pain) Qty: 20 0RF sulfamethoxazole-trimethoprim 800-160 mg tablet 1 tablet PO Q12H Qty: 6 0RF hyoscyamine sulfate 0.125 mg tablet 0.125 mg PO Q6H PRN (Reason: bladder spasms) Qty: 20 2RF docusate sodium [Colace] 100 mg capsule 100 mg PO DAILY Qty: 30 0RF trazodone 50 mg tablet 100 mg PO HS PRN (Reason: sleep) lorazepam 0.5 mg tablet 0.5 mg PO Q12H PRN (Reason: anxiety) vitamin B complex Tablet 1 tablet PO DAILY atorvastatin 40 mg tablet 40 mg PO DAILY cholecalciferol (vitamin D3) 50 mcg (2,000 unit) capsule 2,000 unit PO DAILY ferrous sulfate 325 mg (65 mg iron) tablet 325 mg PO DAILY Patient Comments: PUT SELF ON IRON multivitamin [Daily Multi-Vitamin] Tablet 1 tablet PO DAILY ascorbic acid (vitamin C) 1,000 mg capsule 1 g PO DAILY Serbian ginseng root extract 100 mg capsule 100 mg PO DAILY Held valerian root 500 mg capsule 500 mg PO DAILY Hold Instructions: Resume on 09/26/25. omega 1-dtv-xvm-fish oil [Fish Oil] 1,000 (120-180) mg capsule 1 cap PO DAILY Hold Instructions: Resume on 09/26/25. Date of admission: 09/15/25 15:07 Primary Care Provider: Roberth,Fernandez Romano Admitting Provider: Jose Antonio Santana Attending physician on admission: Arian Lucia Condition: Serious
== END 2025-09-19 16:15 | disposition home or self-care (01) | DRG 394 ==
LOC: ANHED 08:45 → ANHIMU 12:40 → ANH2MED 09-19 13:16 → ANHIMU 09-23 09:10
PROVIDERS: Nurse Practitioner Adult Health; Admitting Provider Internal Medicine; Emergency Provider Emergency Medicine; PCP Family Medicine; Visit Provider General Practice
DX: K91.89 Other postprocedural complications and disorders of digestive system (principal); K56.7 Ileus, unspecified; L76.32 Postprocedural hematoma of skin and subcutaneous tissue following other procedure; K40.90 Unilateral inguinal hernia, without obstruction or gangrene, not specified as recurrent; C61 Malignant neoplasm of prostate; E78.5 Hyperlipidemia, unspecified; Z90.79 Acquired absence of other genital organ(s); Z87.891 Personal history of nicotine dependence
CPT/HCPCS: 36415; 51600; 71275; 74018; 74177; 74250; 74430; 80048; 80053; 81001; 82565; 82948; 83605; 83690; 84145; 85025; 85027; 85610; 85652; 85730; 86140; 87040; 87086; 87641; 93005; 96365; 96375; 97161; 99285; A9270; J1171; J1836; J2405; J2543; J7120; Q9967